=== PATIENT | male | born 1945 | race Caucasian/White ===

== ENCOUNTER 2019-07-29 08:31 | Outpatient (RCR) | payer MEDICARE, SELFPAY ==
[2019-05-02 08:44] LABS: Alanine Aminotransferase 58 U/L (4-50); Aspartate Amino Transferase 93 U/L (17-59)
[2019-05-02 08:47] LABS: INR 2.6; Prothrombin Time 27.2 Seconds (11.1-14.7)
[2019-05-30 09:43] LABS: INR 3.1; Prothrombin Time 31.6 Seconds (11.1-14.7)
[2019-05-30 09:46] LABS: Alanine Aminotransferase 100 U/L (4-50); Albumin Level 3.7 g/dL (3.5-5.1); Alkaline Phosphatase 92 U/L (38-126); Aspartate Amino Transferase 90 U/L (17-59); Bilirubin,Total 0.4 mg/dL (0.2-1.3); Blood Urea Nitrogen 19 mg/dL (9-20); Calcium 9.3 mg/dL (8.4-10.2); Carbon Dioxide 32 mmol/L (22-30); Chloride 103 mmol/L (98-107); Estimated Glomerular Filt Rate 54; Glucose 107 mg/dL (75-110); Potassium 3.8 mmol/L (3.4-5.0); Sodium 143 mmol/L (137-145)
[2019-06-29 09:23] LABS: INR 2.6; Prothrombin Time 27.7 Seconds (11.1-14.7)
[2019-07-29 09:04] LABS: INR 2.4; Prothrombin Time 25.3 Seconds (11.1-14.7)
== END 2019-07-31 23:59 | disposition home or self-care (01) ==
LOC: ANHLAB 08:31
PROVIDERS: PCP Internal Medicine; Visit Provider Internal Medicine Cardiovascular Disease
DX: Z51.81 Encounter for therapeutic drug level monitoring (principal); I48.19 Other persistent atrial fibrillation; R94.5 Abnormal results of liver function studies; Z79.01 Long term (current) use of anticoagulants
CPT/HCPCS: 36415; 80053; 84450; 84460; 85610

== ENCOUNTER 2019-11-29 10:35 | Outpatient (RCR) | payer MEDICARE, SELFPAY ==
[2019-09-01 11:40] LABS: INR 1.8; Prothrombin Time 20.5 Seconds (11.1-14.7)
[2019-09-28 13:49] LABS: INR 2.2; Prothrombin Time 24.3 Seconds (11.1-14.7)
[2019-10-31 12:02] LABS: INR 2.5; Prothrombin Time 26.4 Seconds (11.1-14.7)
[2019-11-29 11:01] LABS: INR 2.2; Prothrombin Time 23.7 Seconds (11.1-14.7)
== END 2019-11-30 23:59 | disposition home or self-care (01) ==
LOC: ANHLAB 10:35
PROVIDERS: PCP Internal Medicine; Visit Provider Internal Medicine Cardiovascular Disease
DX: I48.19 Other persistent atrial fibrillation (principal); Z79.01 Long term (current) use of anticoagulants; R94.5 Abnormal results of liver function studies
CPT/HCPCS: 36415; 85610

== ENCOUNTER 2020-03-27 11:09 | Outpatient (RCR) | payer MEDICARE, SELFPAY ==
[2019-12-30 07:49] LABS: INR 2.3; Prothrombin Time 24.9 Seconds (11.1-14.7)
[2020-01-31 07:47] LABS: INR 2.3; Prothrombin Time 24.7 Seconds (11.1-14.7)
[2020-03-01 08:53] LABS: Prothrombin Time 21.9 Seconds (11.1-14.7)
[2020-03-27 11:57] LABS: INR 1.9; Prothrombin Time 22.3 Seconds (11.1-14.7)
== END 2020-03-29 23:59 | disposition home or self-care (01) ==
LOC: ANHLAB 11:09
PROVIDERS: PCP Internal Medicine; Visit Provider Internal Medicine Cardiovascular Disease
DX: Z51.81 Encounter for therapeutic drug level monitoring (principal); I48.19 Other persistent atrial fibrillation; Z79.01 Long term (current) use of anticoagulants
CPT/HCPCS: 36415; 85610

== ENCOUNTER 2020-07-27 11:08 | Outpatient (RCR) | payer MEDICARE, SELFPAY ==
[2020-05-03 10:51] LABS: INR 1.9; Prothrombin Time 22.6 Seconds (11.1-14.7)
[2020-06-30 11:18] LABS: INR 1.9; Prothrombin Time 22.5 Seconds (11.1-14.7)
[2020-07-27 11:32] LABS: INR 1.5; Prothrombin Time 18.7 Seconds (11.1-14.7)
== END 2020-08-01 23:59 | disposition home or self-care (01) ==
LOC: ANHLAB 11:08
PROVIDERS: PCP Internal Medicine; Visit Provider Internal Medicine Cardiovascular Disease
DX: Z51.81 Encounter for therapeutic drug level monitoring (principal); I48.19 Other persistent atrial fibrillation; Z79.01 Long term (current) use of anticoagulants
CPT/HCPCS: 36415; 85610

== ENCOUNTER 2020-08-30 08:13 | Outpatient (CLI) | payer MEDICARE, SELFPAY ==
[2020-08-30 08:46] LABS: Cholesterol 255 mg/dL (0-200); HDL Direct 32 mg/dL; Triglycerides 180 mg/dL (<150)
[2020-08-30 08:57] LABS: LDL Cholesterol Direct 166 mg/dL
== END 2020-08-30 08:14 | disposition home or self-care (01) ==
PROVIDERS: PCP Internal Medicine; Visit Provider Internal Medicine Cardiovascular Disease
DX: E78.5 Hyperlipidemia, unspecified (principal); I25.10 Atherosclerotic heart disease of native coronary artery without angina pectoris
CPT/HCPCS: 36415; 80061

== ENCOUNTER 2020-10-19 08:29 | Outpatient (RCR) | payer MEDICARE, SELFPAY ==
[2020-08-11 13:24] LABS: INR 2.5; Prothrombin Time 27.3 Seconds (11.1-14.7)
[2020-09-11 11:06] LABS: INR 2.2; Prothrombin Time 24.7 Seconds (11.1-14.7)
[2020-10-19 08:56] LABS: INR 2.4; Prothrombin Time 26.6 Seconds (11.1-14.7)
== END 2020-11-09 23:59 | disposition home or self-care (01) ==
LOC: ANHLAB 08:29
PROVIDERS: PCP Internal Medicine; Visit Provider Internal Medicine Cardiovascular Disease
DX: Z51.81 Encounter for therapeutic drug level monitoring (principal); I48.19 Other persistent atrial fibrillation; Z79.01 Long term (current) use of anticoagulants
CPT/HCPCS: 36415; 85610

== ENCOUNTER 2020-11-30 06:50 | Outpatient (CLI) | payer MEDICARE, SELFPAY ==
[2020-11-30 07:48] LABS: Cholesterol 120 mg/dL (0-200); HDL Direct 31 mg/dL; Triglycerides 188 mg/dL (<150)
[2020-11-30 07:59] LABS: LDL Cholesterol Direct 50 mg/dL
== END 2020-11-30 06:51 | disposition home or self-care (01) ==
PROVIDERS: PCP Internal Medicine; Visit Provider Internal Medicine Cardiovascular Disease
DX: E78.5 Hyperlipidemia, unspecified (principal)
CPT/HCPCS: 36415; 80061

== ENCOUNTER 2021-01-16 10:36 | Outpatient (RCR) | payer MEDICARE, SELFPAY ==
[2020-11-19 10:55] LABS: INR 2.4; Prothrombin Time 26.6 Seconds (11.1-14.7)
[2020-12-18 16:49] LABS: INR 1.8; Prothrombin Time 20.3 Seconds (11.1-14.7)
[2021-01-16 11:29] LABS: INR 2.1; Prothrombin Time 23.3 Seconds (11.1-14.7)
== END 2021-02-17 23:59 | disposition home or self-care (01) ==
LOC: ANHLAB 10:36
PROVIDERS: PCP Internal Medicine; Visit Provider Internal Medicine Cardiovascular Disease
DX: Z51.81 Encounter for therapeutic drug level monitoring (principal); I48.19 Other persistent atrial fibrillation; Z79.01 Long term (current) use of anticoagulants
CPT/HCPCS: 36415; 85610

== ENCOUNTER 2021-04-22 09:58 | Outpatient (RCR) | payer MEDICARE, SELFPAY ==
[2021-02-18 15:03] LABS: INR 2.5; Prothrombin Time 26.7 Seconds (11.1-14.7)
[2021-03-21 09:40] LABS: INR 2.8; Prothrombin Time 28.4 Seconds (11.1-14.7)
[2021-04-22 10:32] LABS: INR 2.2; Prothrombin Time 24.1 Seconds (11.1-14.7)
== END 2021-05-19 23:59 | disposition home or self-care (01) ==
LOC: ANHLAB 09:58
PROVIDERS: PCP Internal Medicine; Visit Provider Internal Medicine Cardiovascular Disease
DX: Z51.81 Encounter for therapeutic drug level monitoring (principal); I48.19 Other persistent atrial fibrillation; Z79.01 Long term (current) use of anticoagulants
CPT/HCPCS: 36415; 85610

== ENCOUNTER 2021-09-18 10:47 | Outpatient (RCR) | payer MEDICARE, SELFPAY ==
[2021-06-25 10:47] LABS: INR 1.8; Prothrombin Time 20.1 Seconds (11.1-14.7)
[2021-07-09 14:08] LABS: INR 2.4; Prothrombin Time 25.3 Seconds (11.1-14.7)
[2021-08-13 08:55] LABS: Prothrombin Time 22.3 Seconds (11.1-14.7)
[2021-09-09 12:17] LABS: INR 3.2; Prothrombin Time 31.8 Seconds (11.1-14.7)
[2021-09-18 11:53] LABS: INR 2.6; Prothrombin Time 26.7 Seconds (11.1-14.7)
== END 2021-09-23 23:59 | disposition home or self-care (01) ==
LOC: ANHLAB 10:47
PROVIDERS: PCP Internal Medicine; Visit Provider Internal Medicine Cardiovascular Disease
DX: Z51.81 Encounter for therapeutic drug level monitoring (principal); I35.9 Nonrheumatic aortic valve disorder, unspecified; Z79.01 Long term (current) use of anticoagulants
CPT/HCPCS: 36415; 85610

== ENCOUNTER 2021-09-18 10:48 | Outpatient (CLI) | payer MEDICARE, SELFPAY ==
[2021-09-18 12:24] LABS: Prostate Specific Antigen 0.5 ng/mL (< OR = 4.0)
== END 2021-09-18 10:49 | disposition home or self-care (01) ==
LOC: ANHLAB 10:50
PROVIDERS: PCP Internal Medicine; Visit Provider Nurse Practitioner Adult Health
DX: R97.20 Elevated prostate specific antigen [PSA] (principal)
CPT/HCPCS: 36415; 84153; 85610

== ENCOUNTER 2021-12-24 10:54 | Outpatient (RCR) | payer MEDICARE, SELFPAY ==
[2021-10-18 08:21] LABS: INR 2.6; Prothrombin Time 26.9 Seconds (11.1-14.7)
[2021-11-22 09:28] LABS: INR 2.5; Prothrombin Time 26.1 Seconds (11.1-14.7)
[2021-12-24 11:20] LABS: INR 2.5; Prothrombin Time 26.1 Seconds (11.1-14.7)
== END 2022-01-16 23:59 | disposition home or self-care (01) ==
LOC: ANHLAB 10:54
PROVIDERS: PCP Internal Medicine; Visit Provider Internal Medicine Cardiovascular Disease
DX: Z51.81 Encounter for therapeutic drug level monitoring (principal); I35.9 Nonrheumatic aortic valve disorder, unspecified; Z79.01 Long term (current) use of anticoagulants
CPT/HCPCS: 36415; 85610

== ENCOUNTER 2022-03-25 11:10 | Outpatient (RCR) | payer MEDICARE, SELFPAY ==
[2022-01-22 08:16] LABS: INR 2.7
[2022-03-25 11:51] LABS: INR 1.8; Prothrombin Time 20.4 Seconds (11.1-14.7)
== END 2022-04-22 23:59 | disposition home or self-care (01) ==
LOC: ANHLAB 11:10
PROVIDERS: PCP Internal Medicine; Visit Provider Internal Medicine Cardiovascular Disease
DX: Z51.81 Encounter for therapeutic drug level monitoring (principal); I35.9 Nonrheumatic aortic valve disorder, unspecified; Z79.01 Long term (current) use of anticoagulants
CPT/HCPCS: 36415; 85610

== ENCOUNTER 2022-06-30 10:30 | Outpatient (RCR) | payer MEDICARE, SELFPAY ==
[2022-05-01 10:14] LABS: INR 1.9; Prothrombin Time 21.4 Seconds (11.1-14.7)
[2022-06-30 11:15] LABS: INR 2.1; Prothrombin Time 22.5 Seconds (11.1-14.7)
== END 2022-07-30 23:59 | disposition home or self-care (01) ==
LOC: ANHLAB 10:30
PROVIDERS: PCP Internal Medicine; Visit Provider Internal Medicine Cardiovascular Disease
DX: Z51.81 Encounter for therapeutic drug level monitoring (principal); I35.9 Nonrheumatic aortic valve disorder, unspecified; Z79.01 Long term (current) use of anticoagulants
CPT/HCPCS: 36415; 85610

== ENCOUNTER 2022-11-03 09:52 | Outpatient (RCR) | payer MEDICARE, SELFPAY ==
[2022-11-03 10:33] LABS: INR 2.2; Prothrombin Time 25.9 Seconds (11.1-14.7)
== END 2023-02-01 23:59 | disposition home or self-care (01) ==
LOC: ANHLAB 09:52
PROVIDERS: PCP Internal Medicine; Visit Provider Internal Medicine Cardiovascular Disease
DX: Z51.81 Encounter for therapeutic drug level monitoring (principal); I35.9 Nonrheumatic aortic valve disorder, unspecified; I48.19 Other persistent atrial fibrillation; Z79.01 Long term (current) use of anticoagulants
CPT/HCPCS: 36415; 85610

== ENCOUNTER 2023-02-04 10:35 | Outpatient (RCR) | payer MEDICARE, SELFPAY ==
[2023-02-04 11:41] LABS: INR 2.6; Prothrombin Time 29.6 Seconds (11.1-14.7)
== END 2023-05-05 23:59 | disposition home or self-care (01) ==
LOC: ANHLAB 10:35
PROVIDERS: PCP Internal Medicine; Visit Provider Internal Medicine Cardiovascular Disease
DX: Z51.81 Encounter for therapeutic drug level monitoring (principal); I35.9 Nonrheumatic aortic valve disorder, unspecified; I48.91 Unspecified atrial fibrillation; Z79.01 Long term (current) use of anticoagulants
CPT/HCPCS: 36415; 85610

== ENCOUNTER 2024-04-19 09:46 | Outpatient (CLI) | payer MEDICARE, SELFPAY ==
[2024-04-19 10:04] LABS: Basophils Absolute Auto 0.1 K/mm3 (0.0-0.1); Basophils Percent Auto 0.7 % (0.2-1.2); Eosinophils Absolute Auto 0.1 K/mm3 (0-0.3); Eosinophils Percent Auto 1.3 % (0-4.4); Hematocrit 44.9 % (42.0-52.0); Hemoglobin 14.4 g/dL (14.0-18.0); Immature Granulocyte Absolute 0.05 K/mm3 (0.00-0.031); Immature Granulocyte Percent A 0.7 % (0-0.5); Lymphocytes Absolute Auto 1.27 K/mm3 (0.9-3.2); Mean Corpuscular HGB Conc 32.1 g/dl (32-36); Mean Corpuscular Hemoglobin 29.3 pg (26-34); Mean Corpuscular Volume 91.4 fl (80-100); Mean Platelet Volume 10.3 fl (7.4-10.4); Monocytes Absolute Auto 0.6 K/mm3 (0.1-0.6); Monocytes Percent Auto 7.8 % (2.6-8.5); Neutrophils Absolute Auto 5.4 K/mm3 (1.3-6.7); Neutrophils Percent Auto 72.5 % (45.5-73.1); Platelet Count Result 204 k/mm3 (150-375); Red Blood Count 4.91 M/mm3 (4.6-6.20); Red Cell Distribution Width 14.6 % (11.5-14.5); White Blood Count 7.5 K/mm3 (4.5-10.0)
[2024-04-19 10:28] LABS: Alanine Aminotransferase 38 U/L (6-50); Albumin Level 4.1 g/dL (3.5-5.1); Alkaline Phosphatase 140 U/L (38-126); Anion Gap 5 mmol/L (4-12); Aspartate Amino Transferase 47 U/L (17-59); Bilirubin,Total 0.9 mg/dL (0.2-1.3); Blood Urea Nitrogen 19 mg/dL (9-20); Calcium 9.5 mg/dL (8.4-10.2); Carbon Dioxide 30 mmol/L (22-30); Chloride 106 mmol/L (98-107); Cholesterol 169 mg/dL (0-200); Estimated Glomerular Filt Rate > 60; Glucose 100 mg/dL (65-110); HDL Direct 67 mg/dL; Potassium 4.8 mmol/L (3.4-5.0); Sodium 141 mmol/L (137-145); Triglycerides 70 mg/dL (<150)
[2024-04-19 10:38] LABS: LDL Cholesterol Direct 70 mg/dL
== END 2024-04-19 09:47 | disposition home or self-care (01) ==
PROVIDERS: PCP Internal Medicine; Visit Provider Internal Medicine
DX: J44.9 Chronic obstructive pulmonary disease, unspecified (principal); I25.10 Atherosclerotic heart disease of native coronary artery without angina pectoris; R74.8 Abnormal levels of other serum enzymes; I10 Essential (primary) hypertension; E66.9 Obesity, unspecified
CPT/HCPCS: 36415; 80053; 80061; 85025

== ENCOUNTER 2024-04-30 14:04 | Emergency (ER) | payer MEDICARE, SELFPAY ==
[2024-04-30 14:10] VITALS: BP 168/100; PULSE 64; RESP 16; TEMP 36.2; O2SAT 95
[2024-04-30 19:07] VITALS: BP 174/70; PULSE 72; RESP 18; TEMP 36.6; O2SAT 99
--- NOTE | 2024-04-30 19:20 | PC.NURSE ---
Report received from FERMIN Espino. Assumed care of patient at this time.
--- NOTE | 2024-04-30 19:26 | ED.SKABFB ---
HPI - Skin/Abscess/Foreign Bdy General Chief complaint: Skin/Abscess/Foreign Body Stated complaint: biopsy yesterday still bleeding History of Present Illness HPI narrative: Patient is a 79-year-old male who presents to the ER following a skin cancer biopsy on his L latter-day. He reports the procedure was done yesterday and has continued to ooze. Patient does endorse he is on blood thinners. He reports his biggest concern is that he has developed a hematoma under his left eye and is wondering if it needs to be drained. Patient reports the bruising on his left hand but the biopsy site manageable. He denies any neurological deficiencies, pain or fevers. Patient endorses a history high blood pressure, skin cancer, COPD, and AFib. Related Data Home Medications Medication Instructions Recorded Confirmed finasteride 5 mg tablet 5 mg PO DAILY 06/14/19 04/25/24 furosemide 40 mg tablet (Lasix) 40 mg PO QAM 06/14/19 04/25/24 losartan 50 mg tablet 50 mg PO DAILY 06/14/19 04/25/24 metoprolol tartrate 25 mg tablet 25 mg PO BID 11/08/19 04/25/24 amlodipine 10 mg tablet 5 mg PO DAILY 11/04/21 04/25/24 clopidogrel 75 mg tablet 75 mg PO DAILY 11/04/21 04/25/24 apixaban 5 mg tablet (Eliquis) 5 mg PO BID 06/10/23 04/25/24 atorvastatin 20 mg tablet 40 mg PO DAILY 03/23/24 04/25/24 Allergies Allergy/AdvReac Type Severity Reaction Status Date / Time No Known Drug Allergies Allergy Unknown na Verified 04/30/24 17:02 Review of Systems Review of Systems: All systems reviewed & are unremarkable except as noted in HPI and below PMFSH Past Medical History Medical History Amputation toe Atrial fibrillation CHF (congestive heart failure) CKD (chronic kidney disease) stage 3, GFR 30-59 ml/min COPD (chronic obstructive pulmonary disease) Coronary artery disease Elevated liver enzymes Hypertension Surgical History Surgical History H/O aortic valve replacement Family History Family History Father CAD (coronary artery disease) Hypertension Parkinson disease Mother CAD (coronary artery disease) Hypertension Sibling CAD (coronary artery disease) Hypertension Mother Hypertension Acute myocardial infarction Father Family history of coronary artery disease Social History Social History Smoking packs per day: 1 Smoking cigarettes per day: 20.0 Years smoked: 35 Smoking pack-years: 35.00 Smoking status: Former smoker Smoking end date: 05/25/97 Alcohol intake: current Do You Feel Safe in your Home?: Yes Lack of Transportation: No Lack of Food: Never True Current Housing: I Have Housing Concerned About Future Housing: No Difficulty Paying Gas/Electric Bills: No Difficulty Paying for Meds: No Currently Unemployed: No Education: High School Diploma/GED Difficulty w/ Childcare or Family Care: No Exam Narrative: GENERAL: Well appearing, well-nourished, non-toxic, in no acute distress. HEAD: Normocephalic, left lower orbital hematoma, soft when palpated, elevated mildly from R orbital socket, finding is expected with pt's medical history NECK: Supple. No adenopathy, no masses. RESPIRATORY: Airway patent, respirations nonlabored. Clear to auscultation bilaterally, no rales, rhonchi, wheezing. CARDIOVASCULAR: Regular rate and rhythm without murmurs, rubs, or gallops. Peripheral pulses 2+ and equal bilaterally. ABDOMINAL: Soft, nontender, nondistended, no hepatosplenomegaly. Normoactive BS. MUSCULOSKELETAL: Moves all extremities. Strength/ROM intact without gross deformities. SKIN: Warm, dry, normal color. No rashes. NEURO: A&O X3. Speech clear. Cranial nerves II-XII grossly intact. Steady gait. No ataxic movements. PSYCHIATRIC: Appropriate mood and affect. Normal interaction. Course Vital Signs Vital signs: Vital Signs Temperature 36.2 C L 04/30/24 14:10 Pulse Rate 64 04/30/24 14:10 Respiratory Rate 16 04/30/24 14:10 Blood Pressure 168/100 H 04/30/24 14:10 Pulse Oximetry 95 04/30/24 14:10 Oxygen Delivery Nasal Cannula 04/30/24 14:10 Oxygen Flow Rate 1 04/30/24 14:10 Temperature 36.6 C 04/30/24 19:07 Pulse Rate 72 04/30/24 19:07 Respiratory Rate 18 04/30/24 19:07 Blood Pressure 174/70 H 04/30/24 19:07 Pulse Oximetry 99 04/30/24 19:07 Oxygen Delivery Nasal Cannula 04/30/24 14:10 Oxygen Flow Rate 1 04/30/24 14:10 MDM - Skin/Abscess/Foreign Bdy MDM Narrative Medical decision making narrative: Patient is a 79-year-old male who presents to the ER following a skin cancer biopsy on his L latter-day. He reports the procedure was done yesterday and has continued to ooze. Patient does endorse he is on blood thinners. He reports his biggest concern is that he has developed a hematoma under his left eye and is wondering if it needs to be drained. Patient reports the bruising on his left hand but the biopsy site manageable. He denies any neurological deficiencies, pain or fevers. Patient endorses a history high blood pressure, skin cancer, COPD, and AFib. Labs Ordered: None needed Imaging Ordered: None needed Diagnosis: L lower orbital swelling and hematoma Consults: Pt's notes from his PCP were reviewed. He has been on a blood thinner for more than 5 years due to AFib and his INR and a PTT had consistent readings. Patient Education/Shared MDM: Education provided to patient that this is an expected result of patient having a procedure care after being on blood thinners. Patient verbalizes understanding. He should follow with his primary care provider on Thursday. Patient is in agreement with plan. Disposition/Plan: Patient is in agreement with current treatment plan. All questions answered. Vital signs stable at time of discharge. Differential Diagnosis Differential diagnosis: Likely cellulitis, contact dermatitis and other (uncontrolled bleeding) Discharge Plan Discharge Clinical Impression: Hematoma of left orbit Patient Disposition: Home, Self-Care Condition: Stable Instructions: Antibiotic Form, Hematoma (ED), Blood Thinners (ED) Additional Instructions: Please return to the ER with an worsening symptoms. Follow-up with primary care provider in the next 2-3 days. Take all medications as prescribed. Prescriptions: No Action finasteride 5 mg tablet 5 mg PO DAILY furosemide [Lasix] 40 mg tablet 40 mg PO QAM losartan 50 mg tablet 50 mg PO DAILY amlodipine 10 mg tablet 5 mg PO DAILY metoprolol tartrate 25 mg tablet 25 mg PO BID Rx Instructions: 2 tablets BID clopidogrel 75 mg tablet 75 mg PO DAILY albuterol sulfate 90 mcg/actuation HFA aerosol inhaler 1 - 2 inh inhalation Q4-6H PRN (Reason: shortness of breath or wheezing) Qty: 8.5 2RF Eliquis 5 mg tablet 5 mg PO BID atorvastatin 20 mg tablet 40 mg PO DAILY Trelegy Ellipta 100-62.5-25 mcg blister with device 1 inh INHALATION DAILY Qty: 60 11RF Rx Instructions: Rinse mouth and spit after each use Follow-up/Referrals: Timo Coronado DO [Primary Care Provider] - Time of Disposition: 19:41
== END 2024-04-30 19:51 | disposition home or self-care (01) ==
PROVIDERS: Emergency Provider Registered Nurse; PCP Internal Medicine
DX: L76.32 Postprocedural hematoma of skin and subcutaneous tissue following other procedure (principal); I48.91 Unspecified atrial fibrillation; I13.0 Hypertensive heart and chronic kidney disease with heart failure and stage 1 through stage 4 chronic kidney disease, or unspecified chronic kidney disease; N18.30 Chronic kidney disease, stage 3 unspecified; I50.9 Heart failure, unspecified; I25.10 Atherosclerotic heart disease of native coronary artery without angina pectoris; J44.9 Chronic obstructive pulmonary disease, unspecified; Z95.2 Presence of prosthetic heart valve; Z87.891 Personal history of nicotine dependence; Z89.429 Acquired absence of other toe(s), unspecified side; Z79.899 Other long term (current) drug therapy; Z79.01 Long term (current) use of anticoagulants; Y84.8 Other medical procedures as the cause of abnormal reaction of the patient, or of later complication, without mention of misadventure at the time of the procedure
CPT/HCPCS: 99282

== ENCOUNTER 2024-05-02 16:04 | Emergency (ER) | payer MEDICARE, SELFPAY ==
[2024-05-02] VITALS (9 sets, daily range): BP systolic 168–181; BP diastolic 64–75; PULSE 61–70; RESP 16–18; TEMP 36.6; O2SAT 92–100
--- NOTE | 2024-05-02 17:45 | PC.NURSE ---
pt nose has stopped bleeding, pt is ready to go home. STEVENSON Denny aware.
--- NOTE | 2024-05-02 17:58 | ED_ITS ---
HPI - Epistaxis General Chief complaint: Epistaxis Stated complaint: epistaxis Time Seen by Provider: 05/02/24 17:01 Source: patient Mode of arrival: EMS Limitations: no limitations History of Present Illness HPI Narrative: Patient is a 79-year-old male who presents the ED via EMS with report of an epistaxis. Patient reports he developed an epistaxis this afternoon. Seem to be present throughout his left nare, but draining into his throat and right- sided ear. He states he attempted to hold pressure at home, but bleeding continued for approximately 2 hours before he contacted EMS. Clamp list placed by EMS. Patient is on Eliquis. Hx of AFIB. Denies dizziness or lightheadedness. Related Data Home Medications Medication Instructions Recorded Confirmed finasteride 5 mg tablet 5 mg PO DAILY 06/14/19 04/25/24 furosemide 40 mg tablet (Lasix) 40 mg PO QAM 06/14/19 04/25/24 losartan 50 mg tablet 50 mg PO DAILY 06/14/19 04/25/24 metoprolol tartrate 25 mg tablet 25 mg PO BID 11/08/19 04/25/24 amlodipine 10 mg tablet 5 mg PO DAILY 11/04/21 04/25/24 clopidogrel 75 mg tablet 75 mg PO DAILY 11/04/21 04/25/24 apixaban 5 mg tablet (Eliquis) 5 mg PO BID 06/10/23 04/25/24 atorvastatin 20 mg tablet 40 mg PO DAILY 03/23/24 04/25/24 Allergies Allergy/AdvReac Type Severity Reaction Status Date / Time No Known Drug Allergies Allergy Unknown na Verified 04/30/24 17:02 Review of Systems Review of Systems: All systems reviewed & are unremarkable except as noted in HPI. All systems reviewed & are unremarkable except as noted in HPI and below [facility] Past Medical History Medical History Amputation toe Atrial fibrillation CHF (congestive heart failure) CKD (chronic kidney disease) stage 3, GFR 30-59 ml/min COPD (chronic obstructive pulmonary disease) Coronary artery disease Elevated liver enzymes Hypertension Surgical History Surgical History H/O aortic valve replacement Family History Family History Father CAD (coronary artery disease) Hypertension Parkinson disease Mother CAD (coronary artery disease) Hypertension Sibling CAD (coronary artery disease) Hypertension Mother Hypertension Acute myocardial infarction Father Family history of coronary artery disease Social History Social History Smoking packs per day: 1 Smoking cigarettes per day: 20.0 Years smoked: 35 Smoking pack-years: 35.00 Smoking status: Former smoker Smoking end date: 05/25/97 Alcohol intake: current Do You Feel Safe in your Home?: Yes Lack of Transportation: No Lack of Food: Never True Current Housing: I Have Housing Concerned About Future Housing: No Difficulty Paying Gas/Electric Bills: No Difficulty Paying for Meds: No Currently Unemployed: No Education: High School Diploma/GED Difficulty w/ Childcare or Family Care: No Exam Narrative: GENERAL: Elderly, well-nourished, non-toxic, in no acute distress. HEAD: Normocephalic, atraumatic. ENT: Well-healing surgical incision into left temporal region with some ecchymosis present. Consistent with skin cancer removal that was performed yesterday. No active epistaxis. There is a small area of raw skin present thro ughout left inferior nasal cavity without active bleeding. RESPIRATORY: Airway patent, respirations nonlabored. CARDIOVASCULAR: Regular rate and rhythm MUSCULOSKELETAL: Moves all extremities. No gross deformities. SKIN: Warm, dry, normal color. NEURO: A&O X3. Speech clear. PSYCHIATRIC: Appropriate mood and affect. Normal interaction. Course Vital Signs Vital signs: Vital Signs Temperature 97.8 F 05/02/24 16:05 Pulse Rate 61 05/02/24 16:05 Respiratory Rate 16 05/02/24 16:05 Blood Pressure 179/64 H 05/02/24 16:05 Pulse Oximetry 100 05/02/24 16:05 Oxygen Delivery Room Air 05/02/24 16:05 Temperature 97.8 F 05/02/24 16:05 Pulse Rate 70 05/02/24 18:14 Respiratory Rate 18 05/02/24 18:14 Blood Pressure 177/75 H 05/02/24 18:14 Pulse Oximetry 100 05/02/24 18:14 Oxygen Delivery Room Air 12/09/24 16:05 MDM - Epistaxis MDM Narrative Medical decision making narrative: Patient presented to ED with 2 hour history of left-sided epistaxis. On Eliquis. By the time of my evaluation, patient had nasal clamp on for at least 1 hour in the ED. He had removed the clamp himself for at least 20 minutes and has not had any further recurrence of epistaxis. States he would like to go home. I feel comfortable with this. There is a small area of raw abraded skin that I do believe this source of epistaxis in left nare, but there is no active bleeding at this time. Discussed further epistaxis management. Will refer to ENT for further evaluation. Given strict return precautions. Discharged in stable condition. Medical Records Attestation: I reviewed the patient's medical records. Discharge Plan Discharge Clinical Impression: Epistaxis, Chronic anticoagulation Patient Disposition: Home, Self-Care Condition: Stable Instructions: Antibiotic Form, Nosebleed (ED) Additional Instructions: Avoid rubbing or blowing your nose for the next couple days. Recommend humidifier or placing Vaseline inside nostrils at night to avoid drying out. You may also use nasal spray/saline spray to nose to keep moist. If bleeding recurs, utilize Afrin to nostrils and place nasal clamp for approximately 30 minutes. Do not adjust or move the clamp for at least 30 minutes. If bleeding does still persistent after 30 minutes, replace clamp for additional 15 minute intervals. If bleeding is still persistent after 1 hour, return to the ED for further evaluation. Additionally, return to the ED if you experience severe pain, weakness, passing out, significant dizziness, or any other symptoms of concern. You may follow up with ENT for further evaluation if needed. Prescriptions: No Action finasteride 5 mg tablet 5 mg PO DAILY furosemide [Lasix] 40 mg tablet 40 mg PO QAM losartan 50 mg tablet 50 mg PO DAILY amlodipine 10 mg tablet 5 mg PO DAILY metoprolol tartrate 25 mg tablet 25 mg PO BID Rx Instructions: 2 tablets BID clopidogrel 75 mg tablet 75 mg PO DAILY albuterol sulfate 90 mcg/actuation HFA aerosol inhaler 1 - 2 inh inhalation Q4-6H PRN (Reason: shortness of breath or wheezing) Qty: 8.5 2RF Eliquis 5 mg tablet 5 mg PO BID atorvastatin 20 mg tablet 40 mg PO DAILY Trelegy Ellipta 100-62.5-25 mcg blister with device 1 inh INHALATION DAILY Qty: 60 11RF Rx Instructions: Rinse mouth and spit after each use Follow-up/Referrals: Crow Mcnair MD [Physician] - (ENT) Timo Coronado DO [Primary Care Provider] - Time of Disposition: 18:02
== END 2024-05-02 18:16 | disposition home or self-care (01) ==
PROVIDERS: Emergency Provider Physician Assistant; PCP Internal Medicine
DX: R04.0 Epistaxis (principal); I50.9 Heart failure, unspecified; I13.0 Hypertensive heart and chronic kidney disease with heart failure and stage 1 through stage 4 chronic kidney disease, or unspecified chronic kidney disease; N18.30 Chronic kidney disease, stage 3 unspecified; Z95.2 Presence of prosthetic heart valve; Z87.891 Personal history of nicotine dependence; Z89.429 Acquired absence of other toe(s), unspecified side; Z79.02 Long term (current) use of antithrombotics/antiplatelets; Z79.01 Long term (current) use of anticoagulants; Z79.899 Other long term (current) drug therapy
CPT/HCPCS: 99282

== ENCOUNTER 2024-10-30 07:12 | Inpatient (IN) | payer MEDICARE, SELFPAY ==
[2024-10-30] VITALS (17 sets, daily range): BP systolic 146–183; BP diastolic 54–95; PULSE 60–81; RESP 18–34; TEMP 36.3–36.9; O2SAT 93–100; BMI 26.0
--- NOTE | ~2024-10-30 | XR_ITS ---
Portable chest x-ray Comparison: 05/13/2019 Clinical History: Shortness of breath Findings: Probable small bilateral pleural effusions with moderate pulmonary edema pattern. Cardiom ediastinal silhouette is stable, status post aortic valve replacement and probable CABG with pacemake r device. Bones and soft tissues are unremarkable. Impression: Small bilateral pleural effusions with mild pulmonary edema pattern. Prior cardiac surgery and pacemaker device, as above. Reviewed, dictated and finalized at location . Impression: Small bilateral pleural effusions with mild pulmonary edema pattern. Prior cardiac surgery and pacemaker device, as above.
[2024-10-30 07:48] LABS: Basophils Percent Auto 0.2 % (0.2-1.2); Eosinophils Absolute Auto 0.1 K/mm3 (0-0.3); Eosinophils Percent Auto 0.7 % (0-4.4); Hematocrit 40.9 % (42.0-52.0); Immature Granulocyte Absolute 0.04 K/mm3 (0.00-0.031); Immature Granulocyte Percent A 0.4 % (0-0.5); Lymphocytes Absolute Auto 0.92 K/mm3 (0.9-3.2); Lymphocytes Percent Auto 9.7 % (18.3-44.2); Mean Corpuscular HGB Conc 31.8 g/dl (32-36); Mean Corpuscular Hemoglobin 29.3 pg (26-34); Mean Corpuscular Volume 92.3 fl (80-100); Mean Platelet Volume 10.4 fl (7.4-10.4); Monocytes Absolute Auto 0.9 K/mm3 (0.1-0.6); Monocytes Percent Auto 9.3 % (2.6-8.5); Neutrophils Absolute Auto 7.6 K/mm3 (1.3-6.7); Neutrophils Percent Auto 79.7 % (45.5-73.1); Platelet Count Result 192 k/mm3 (150-375); Red Blood Count 4.43 M/mm3 (4.6-6.20); Red Cell Distribution Width 14.8 % (11.5-14.5); White Blood Count 9.5 K/mm3 (4.5-10.0)
--- OUTSIDE RECORDS SUMMARY | 2024-10-30 07:48 | XMS_ITS | Referral Summary ---
Author Organization [facility] [address] [address] [place] [phone] Care Team Providers Care Otolaryngologist Name Role Phone Timo Coronado DO Primary Care Provider [phone] Miscellaneous, Not In File Unavailable Unava ilable Encounters Date Type Department Care Team Description 10/25/2024 Telephone [facility] [address] [place] [address] [place] [phone] Jory Vásquez MD 10/04/2024 10:00 AM CDT Office Visit [facility] [address] [place] [phone] Jory Vásquez MD Coronary arteriosclerosis in [place] artery (Primary Dx); Hyperlipidemia LDL goal <70; Persistent atrial fibrillation (HCC); PAD (peripheral artery disease); Pulmonary hypertension (HCC) 09/20/2024 7:30 AM CDT Ancillary Procedure [facility] [address] [place] [address] [place] [phone] Pacemaker (Primary Dx); Persistent atrial fibrillation (HCC); SSS (sick sinus syndrome) (HCC) 09/14/2024 Results Follow-Up [facility] [address] [place] [address] [place] [phone] Jory Vásquez MD Transthoracic Echo (TTE) Complete W Doppler/CF 09/12/2024 Telephone [facility] [address] [place] [address] [place] [phone] Jory Vásquez MD 09/07/2024 Telephone [facility] [address] [place] [phone] Jory Vásquez MD 09/05/2024 10:15 AM CDT Ancillary Procedure [facility] [address] [place] [phone] S/P TAVR (transcatheter aortic valve replacement); Coronary arteriosclerosis in [place] artery 08/15/2024 Telephone [facility] [address] [place] [address] [address] [place] [phone] Jory Vásquez MD from Last 3 Months Allergies No known active allergies Medications TRELEGY ELLIPTA 100-62.5-25 mcg blister with device Inhale 1 puff daily 9 Active finasteride (PROSCAR) 5 mg tablet Take 1 tablet (5 mg total) by mouth daily Active oxygen Administer 2 L/min into each nostril as needed With CPAP Active albuterol HFA (PROVENTIL HFA,VENTOLIN HFA,PROAIR HFA) 90 mcg/actuation inhaler Inhale 2 puffs every 6 (six) hours as needed for wheezing Active acetaminophen (TYLENOL) 325 mg tabletIndicatio ns:Fever,Pain Take 2 tablets (650 mg total) by mouth every 4 (four) hours as needed for pain [address] (PROTONIX) 40 mg EC tabletIndicatio ns:Stress Ulcer Prophylaxis Take 1 tablet (40 mg total) by mouth daily 3 Active amLODIPine (NORVASC) 10 mg tablet Take 1 tablet (10 mg total) by mouth daily 90 tablet 2 5 05/26/19 26 Active metoprolol tartrate (LOPRESSOR) 25 mg immediate release tablet Take 1 tablet (25 mg total) by mouth 2 (two) times a day 180 tablet 1 5 Active furosemide (LASIX) 20 mg tablet Take 2 tablets (40 mg total) by mouth daily 180 tablet 1 5 Active atorvastatin (LIPITOR) 80 mg tablet TAKE 1 TABLET BY MOUTH ONCE DAILY AT BEDTIME 90 tablet 1 5 Active clopidogreL (PLAVIX) 75 mg tablet Take 1 tablet (75 mg total) by mouth daily 90 tablet 2 5 Active apixaban (Eliquis) 5 mg tablet Take 1 tablet (5 mg total) by mouth every 12 (twelve) hours 60 tablet 6 5 Active losartan (COZAAR) 50 mg tablet Take 1 tablet (50 mg total) by mouth daily 90 tablet 2 5 Active losartan (COZAAR) 50 mg tablet TAKE 1 TABLET BY MOUTH EVERY DAY 90 tablet 2 4 10/26/19 25 Discontin ued(Reord er) Active Problems Problem Noted Date Diagnosed Date Preop cardiovascular exam 05/09/2024 Ulcer of toe of left foot, with necrosis of bone 09/01/2023 Peripheral neuropathy 09/01/2023 Pyogenic inflammation of bone 09/01/2023 Left leg cellulitis 08/13/2023 Acute respiratory failure with hypoxia 4 Protein-calorie malnutrition, moderate 4 PAD (peripheral artery disease) 07/22/2023 Chronic ulcer of great toe of left foot 07/22/19 24 S/P TAVR (transcatheter aortic valve replacement ) 06/10/2023 Pleural effusion on right 05/01/2023 Assessment & Plan (05/07/2023 6:43 PM FRONT MAKER LOCKSTITCH): Mr. Pena is a 78 yo M w/ PMH of CAD s/p CABG x5, severe with plans for possible upcoming TAVR, COPD, poA-fib s/p DCCV on Elquis, history of BiV PPM placement, HTN, HLD, PAD who presented with tremors and had worsening dyspnea and found to have a Rt pleural effusion now s/p chest tube. Effusion is consistent with a transudate, and is most likely 2/2 the patient's aortic stenosis. Cx's NGTD. Now s/p TAVR. Will plan to continue to monitor chest tube output. - Chest tube pulled at bedside - Continue to optimize GDMT and fluid status per primary team Encounter for examination fo r normal comparison and control in clinical research program 04/30/2023 Syncope and collapse 04/25/2023 Cellulitis of left lower extremity 03/26/2023 Toe osteomyelitis, left 03/26/2023 Benign prostatic hyperplasia without lower urinary tract symptoms 03/26/2023 History of TIA (transient ischemic attack) 03/26 Chronic diastolic heart failure 03/26/2023 Aortic stenosis, severe 03/20/2023 Heart failure 03/20/2023 Pulmonary hypertension 11/16/2019 COPD (chronic obstructive pulmonary disease) 10/2018 Persistent atrial fibrillation 10/25/2018 Overview (10/25/2018): Added automatically from request for surgery [id number] Pacemaker 10/04/2018 Overview (12/14/2018): [employer] DDD Quadra Allure [id number] BI-V Pacemaker implanted for SSS/Afib on 10/04/18-Mario - Carloz AV Node Ablation 11/09/2018-Mario. BUTLER (dyspnea on exertion) 01/12/2018 Nonrheumatic aortic valve stenosis 02/11/2017 Primary hypertension 02/11/2017 Assessment & Plan (07/31/2023 1:27 PM FRONT MAKER LOCKSTITCH): Stable continue losartan 50 mg. PVD (peripheral vascular disease) 02/11/2017 Obstructive sleep apnea syndrome 08/05/2016 Overview (10/17/2016): MAGDALENE (obstructive sleep apnea) [facility] current use of anticoagulant therapy 0 12/21/2015 Overview (08/29/2016): Chronic anticoagulation Atypical chest pain 12/07/2015 Dyslipidemia 12/07/2015 Assessment & Plan (07/31/2023 1:28 PM FRONT MAKER LOCKSTITCH): Stable continue Lipitor 80 mg. RBBB 12/07/2015 Stenosis of carotid artery 12/05/2014 Assessment & Plan (07/31/2023 1:27 PM FRONT MAKER LOCKSTITCH): Occlusion of right internal carotid artery. Left internal carotid with severe greater than 70% stenosis however less than 80%. Discussed management of carotid disease with the patient and his daughter, we discussed with occlusion of the carotid artery no intervention is needed outside of risk factor modification. For the left internal carotid artery we discussed the recommendation for intervention if he approaches 80% stenosis or if he becomes symptomatic. We discussed the importance of risk factor modification with Plavix statin therapy in good blood pressure control. We will follow up in 6 months with repeat carotid duplex. Hyperlipidemia LDL goal <70 05/09/2014 Overview (08/29/2016): Mixed hyperlipidemia Aortic valve disorder 05/09/2014 Overview (08/29/2016): Aortic valve disorder Arterial disease 05/09/2014 Overview (08/29/2016): Disorder of artery Coronary arteriosclerosis in [place] artery 05/09 Overview (08/29/2016): Coronary arteriosclerosis in [place] artery Immunizations Immunization Administration Dates Next Due Influenza, Quadrivalent, Hig h Dose, Preservative Free, Intrr 04/29/2023(),03/13/2020 Influenza, Trivalent, Adjuva nted, Intramuscular 03/09/2019 Influenza, Trivalent, High D ose, Split, Preservative Free, Intramuscular 03/26/2018,03/25/2018,03/05/2017 PPD TEST 05/23/2023,05/12/2023 Social History Tobacco Use Types Packs/Day Years Used Date Smoking Tobacco: Former Cigarettes Q uit: 02/11/2002 Smokeless Tobacco: Never Tobacco Cessation:Counseling Given: Not Answered Alcohol Use Standard Drinks/Week Comments Not Currently 1 (1 standard drink = 0.6 oz pur e alcohol) N/ A beer may once per wk [facility] Utilities Answer Date Recorded In the past 12 months has th [employer], gas, oil, or water company threatened to shut off services in your home? No 08/13/2023 Social Connection and Isolation Panel [NHANES] A nswer Date Recorded In a typical week, how many times do you talk on the phone with family, friends, or neighbors? Once a week 08/13/2023 How often do you get together with friends or re latives? Once a week 08/13/2023 How often do you attend christianity or anabaptism serv ices? Never 08/13/2023 Do you belong to any clubs o r organizations such as christianity groups, unions, fraternal or athletic groups, or school groups? No 08/13/2023 How often do you attend meet ings of the clubs or organizations you belong to? Never 08/13/2023 Are you , , di vorced, , never , or living with a partner? 08/13/2023 AUDIT-C Answer Date Recorded Q1: How often do you have a drink containing alc ohol? 2-3 times a week 08/13/2023 Q2: How many drinks containi ng alcohol do you have on a typical day when you are drinking? 1 or 2 08/13/2023 Q3: How often do you have si x or more drinks on one occasion? Never 08/13/2023 Overall Financial Resource Strain (CARDIA) Answe r Date Recorded How hard is it for you to pa y for the very basics like food, housing, medical care, and heating? Not hard at all 08/13/2023 PHQ-2 Answer Date Recorded PHQ-2 Total Score (If total score is 3 or more points, staff should administer the PHQ-9) 0 04/27/2023 Hunger Vital Sign Answer Date Recorded Within the past 12 months, y ou worried that your food would run out before you got the money to buy more. Never true 08/13/19 24 Within the past 12 months, t he food you bought just didn't last and you didn't have money to get more. Never true 08/13/2023 PRAPARE - Transportation Answer Date Re corded In the past 12 months, has l ack of transportation kept you from medical appointments or from getting medications? No 07/24 In the past 12 months, has l ack of transportation kept you from meetings, work, or from getting things needed for daily living? No 08/13/2023 Housing Stability Vital Sign Answer Christiano e Recorded In the last 12 months, was t here a time when you were not able to pay the mortgage or rent on time? No 08/13/2023 In the last 12 months, how many places have you lived? 1 08/13/2023 In the last 12 months, was t here a time when you did not have a steady place to sleep or slept in a [place] [facility] (including now)? No 08/13/2023 Personal Safety Answer Date Recorded Have you ever been in or are you currently in a harmful physical or emotional relationship or is someone making you feel afraid or unsafe? Denies 08/13/2023 Sex and Gender Information Value Date Recorded Sex Assigned at Not on file Legal Sex Male 8:02 AM FRONT MAKER LOCKSTITCH Gender Identity Male 05/28/2021 12:28 PM FRONT MAKER LOCKSTITCH Sexual Orientation Not on file Last Filed Vital Signs Vital Sign Reading Time Taken Comments Blood Pressure 144/72 10/04/2024 10:14 AM CDT Pulse 60 10/04/2024 10:14 AM CDT Temperature 35.9 C (96.7 F) 04/11/2024 11:08 AM FRONT MAKER LOCKSTITCH Respiratory Rate 20 01/08/2024 2:52 PM CDT Oxygen Saturation 97% 10/04/2024 10:14 AM CDT 2L O2 Inhaled Oxygen Concentration - - Weight 78.5 kg (173 lb) 10/04/2024 10:14 AM CDT Height 172.7 cm (5' 8) 10/04/2024 10:14 AM CDT Body Mass Index 26.3 10/04/2024 10:14 AM CDT Plan of Treatment Not on file Medical Devices Implanted Type Area Instrument Checker Device Identifier Shelf Expiration Date Model / Serial / Lot [employer]ight [employer] Medical Lea Angio-Seal Vip 6fr Closere Device [id number] - [id number] - [id number] Implanted:Qty: 1 on 05/04/2023 by Pop Yoon MD at [facility] Collagen Right: Common Femoral Artery [employer] Lea 11/03/2023 [id number] / [id number] / [id number] [employer] 2088tc/58 Tendril Sts 6fr 58cm Is-1 Connector Active Fixation Bipolar Soft - [id number] - [id number] Implanted:Qty: 1 on 10/04/2018 by Hussein Martin MD at [facility] Lead [employer] [id number] 06/24/2021 2088TC/ 58 / [id number] / [employer] 1458q/86 Quartet 5fr 60ena21or 4 Electrode Is-4 Connector Steerable Tip - [id number] - [id number] Implanted:Qty: 1 on 10/04/2018 by Hussein Martin MD at [facility] Lead [employer] [id number] 08/22/2021 1458Q/8 6 / [id number] / [employer] [id number] Pacemaker Quadra Allure Mp Rf Manager Highway-P Mri - [id number] - [id number] Implanted:Qty: 1 on 10/04/2018 by Hussein Martin MD at [facility] Pacemaker [employer] [id number] 03/24/2020 [id number] / [id number] / Orellana [employer]iences Valve Heart 26mm Colette 3 Transcatheter [id number] - [id number] - [id number] Implanted:Qty: 1 on 05/04/2023 by Pop Yoon MD at [facility] Prosthetic Valve N/A: Aortic Valve [employer] 01/12/2026 [id number] 26A / [id number] / Medtronic Inc Visi-Pro 8mm 17mm 135cm Radiopaque Balloon Expand Radial Strength - [id number] Implanted:Qty: 1 on 06/14/[address] MD at [facility] Stent Left: Subclavian Medtronic Inc 01/02/2024 PXB35-0 817-13 5 / / [id number] [employer] Device Clsr Perclose Prostyle Sut-Mediatd Closure-Repair Sys 34590-75 - [id number] - [id number] Implanted:Qty: 1 on 05/04/2023 by Pop Yoon MD at [facility] Vascular Closure Device Left: Common Femoral Artery [employer] 09/21/2024 62288-9 3 / [id number] / [id number] Access Closure Inc Device 10ml 5fr Closure Mynx Control 2 Mode Balloon Catheter [id number] - [id number] Implanted:Qty: 1 on 03/20/[address] MD at [facility] Access Closure Inc 04/23/2024 [id number] / / [id number] Cardiva Medical Inc Device Closure Vascade Od5 Fr Femoral Artery [id number] - [id number] Implanted:Qty: 1 on 08/27/[address] MD at [facility] 04/07/2025 700-500 DX-05U / / [id number] Medtronic Inc Everflex Entrust 6mm 40mm 120cm Self Expand Triaxial Low Profile - [id number] Implanted:Qty: 1 on 09/01/2023 [facility] 07/13/2025 EVD35-0 6-040-1 20 / / [id number] [facility] Device Vascular Closure Femoral Artery Bioabsorbable Dual Method Vascade 6-7fr Collagen [id number] - [id number] Implanted:Qty: 1 on 09/01/2023 by Cristobal James MD at [facility] 04/22/2025 700-580 I-05U / / [id number] [employer] Supera 5.5mm 6fr 150mm 120cm Otw Self Expandable Closed End Braid J-48-800-120-P6 - [id number] Implanted:Qty: 1 on 09/01/2023 by Cristobal James MD at [facility] Vascular 04/23/2024 S-55-15 0-120-P 6 / [id number] [employer] Supera 6mm 6fr 100mm 120cm Peripheral Stent Vascular S-52-640-120-P6 - [id number] Implanted:Qty: 1 on 09/01/2023 by Cristobal James MD at [facility] Vascular 05/24/2024 S-60-10 0-120-P 6 / [id number] Medtronic Inc Everflex Entrust 6mm 150mm 120cm Self Expand Triaxial Low Profile - [id number] Implanted:Qty: 1 on 09/01/2023 [facility] 11/20/2025 EVD35-0 6-150-1 20 / / [id number] Procedures Procedure Name Priority Date/Time Associated Diagnosis Comments DEVICE CHECK - REMOTE Routine 09/20/2024 9:44 AM CDT Persistent atrial fibrillation (HCC) SSS (sick sinus syndrome) (HCC) TRANSTHORACIC ECHO (TTE) COMPLETE W DOPPLER/CF WO CONTRAST Routine 09/05/2024 11:27 AM CDT S/P TAVR (transcatheter aortic valve replacement) Coronary arteriosclerosis in [place] artery CTA ABDOMINAL AORTA AND BILATERAL ILIOFEMORAL RUNOFF IP Routine 03/27/2023 11:58 AM CDT from Last 3 Months or Most Recently Relevant to Health Maintenance Results * DEVICE CHECK - REMOTE (09/20/2024 9:44 AM CDT) Anatomical Region Laterality Modality Other Narrative 10/07/2024 1:[address] [employer] DDD Quadra Allure [id number] BI-V Pacemaker implanted for SSS/Afib on 10/04/18-Mario - Carloz AV Node Ablation 11/09/2018-Mario. Routine VVIR Pacemaker Remote. Transmission attached. Battery status: 2.98 V, 5.1-5.5 years remaining battery life to IAN. Stable lead impedances, pacing and sensing thresholds. Presenting rhythm: BP BIVP-95%. 1 Ventricular high rate episodes detected, IEGM demonstrates 2 seconds of NSVT. Medications: Eliquis 5 mg, Plavix 75 mg, amlodipine 10 mg, losartan 50 mg, metoprolol 25 mg See scanned report. Office pacemaker follow up: 9 months Melissa remote f/u 12/20/24. Eugene Calix RN us Jory Vásquez MD [facility] Final Result * TRANSTHORACIC ECHO (TTE) COMPLETE W DOPPLER/CF WO CONTRAST (09/05/2024 11:27 AM CDT) Anatomical Region Laterality Modality Ultrasound 09/05/2024 10:2 6 AM CDT Narrative 09/05/2024 11:32 AM CDT [facility] [address], [place] [address] [address] [facility] [address], [place] [address] P:[phone] P:[phone] Echocardiographic Report Patient Name: JAIR PENA L : 1945 Study Date: 09/05/2024 10:26:46 AM Gender: M Tech: Location: [facility] Provider: JORY VÁSQUEZ Height(Cm): 173 BSA: 1.88 Weight(Kg): 73.5 Heart Rate: 60 BP: 170 / 80 Quality: Good Order Provider: JORY VÁSQUEZ PROCEDURES: Echocardiographic Report: Transthoracic echocardiogram with complete 2D, M-Mode, and color Doppler examination. With Strain Analysis. INDICATIONS: S/P TAVR and I25.10 Atherosclerotic heart disease of [place] coronary artery without angina pectoris. MEASUREMENTS: 2D/MM Value Range Doppler Value Range EF Mod BP 47 % [ 52 - 72 ] LAWRENCE Vmax 1.80 cm2 [ 2.00 - 4.00 ] EF Teich MM 50 % [ 52 - 72 ] AV Mean PG 12 mmHg LVIDd 2D 4.96 cm [ 4.20 - 5.80 ] AV Peak Haider 2.29 m/s [ 1.00 - 1.70 ] LVIDd MM 4.93 cm [ 4.20 - 5.80 ] AV Peak PG 21 mmHg LVIDs 2D 3.59 cm [ 2.50 - 4.00 ] AV VTI 50.30 cm LVIDs MM 3.68 cm [ 2.50 - 4.00 ] LVOT Diam 1.95 cm [ 1.70 - 2.10 ] LVPWd 2D 1.08 cm [ 0.60 - 1.00 ] LVOT Peak Haider 1.38 m/s [ 0.70 - 1.10 ] LVPWd MM 0.86 cm [ 0.60 - 1.00 ] LVOT VTI 32.29 cm IVSd 2D 1.20 cm [ 0.60 - 1.00 ] MV E Peak Haider 1.32 m/s [ 0.60 - 1.30 ] IVSd MM 1.04 cm [ 0.60 - 1.00 ] MV Decel Time 168 msec [ 104 - 258 ] LA Dimension MM 4.96 cm [ 3.00 - 4.00 ] PV Peak Haider 1.00 m/s [ 0.40 - 0.80 ] AoR Diam MM 3.16 cm [ 3.10 - 3.70 ] TR Peak Haider 3.26 m/s [ 1.00 - 2.80 ] LA Volume Index 37 cc/m2 [ 16 - 34 ] TR Peak PG 42 mmHg RVSP 50.00 mmHg [ 10.00 - 36.00 ] Lateral E` 0.06 m/s [ 0.10 - 0.15 ] E` 0.04 m/s E/E` 21 2D/MM Value Range Doppler Value Range - FINDINGS: Interpretation Site: Exam was interpreted at [facility]. Left Ventricle: Normal left ventricular size. Mild concentric left ventricular hypertrophy. Mild global left ventricular systolic dysfunction. Diastolic dysfunction is present. Ejection fraction is measured at 47 %. Global Longitudinal Strain is -14 %. GLS is abnormal. Right Ventricle: Normal right ventricular size. Moderate right ventricular hypokinesis. Left Atrium: There is moderate enlargement of left atrium. Right Atrium: The right atrium is normal in size. Atrial Septum: Normal atrial septum. Mitral Valve: Normal appearance of the mitral valve. Mild mitral valve regurgitation. There is no hemodynamically significant mitral stenosis by Doppler. Aortic Valve: No evidence of hemodynamically significant aortic stenosis by Doppler. Peak Velocity of 2.29 m/s. Peak gradient of 21.0 mmHg. Mean gradient of 12.0 mmHg. Valve area of 1.8 cm2. No aortic regurgitation. Normal appearing aortic valve prosthesis. Gradients normal for valve type and size. Tricuspid Valve: Normal appearance of the tricuspid valve. Estimated peak RVSP is 50 mmHg. Mild tricuspid regurgitation. Pulmonic Valve: Normal appearance of the pulmonic valve. Mild pulmonic regurgitation. Pericardium: Normal pericardium with no significant pericardial effusion. Aorta: Sinus of Valsalva is normal. IVC: Normal size and normal respiratory collapse consistent with normal right atrial pressure (<5 mmHg). Pulmonary Artery: Normal pulmonary artery size. CONCLUSIONS: Normal left ventricular size. Mild concentric left ventricular hypertrophy. Mild global left ventricular systolic dysfunction. Diastolic dysfunction is present. Ejection fraction is measured at 47 %. Global Longitudinal Strain is -14 %. GLS is abnormal. Normal right ventricular size. Moderate right ventricular hypokinesis. There is moderate enlargement of left atrium. Mild mitral valve regurgitation. No evidence of hemodynamically significant aortic stenosis by Doppler. Peak Velocity of 2.29 m/s. Peak gradient of 21.0 mmHg. Mean gradient of 12.0 mmHg. Valve area of 1.8 cm2. No aortic regurgitation. Normal appearing aortic valve prosthesis. Gradients normal for valve type and size. Estimated peak RVSP is 50 mmHg. Mild tricuspid regurgitation. Mild pulmonic regurgitation. Electronically Signed By: Dr. Ishaan Valdovinos [facility] 09/05/2024 11:30:58 AM CDT Procedure Note Ishaan Valdovinos MD - 09/05/2024 [facility] [address] [facility] [address] [address] [address] [facility] [address], [place] [address] P:[phone] P:[phone] Echocardiographic Report Patient Name: JAIR PENA L : 1945 Study Date: 09/05/2024 10:26:46 AM Gender: M Tech: Location: [facility] Provider: JORY VÁSQUEZ Height(Cm): 173 BSA: 1.88 Weight(Kg): 73.5 Heart Rate: 60 BP: 170 / 80 Quality: Good Order Provider: JORY VÁSQUEZ PROCEDURES: Echocardiographic Report: Transthoracic echocardiogram with complete 2D, M-Mode, and color Dopplerexamination. With Strain Analysis. INDICATIONS: S/P TAVR and I25.10 Atherosclerotic heart disease of [place] coronaryartery without angina pectoris. MEASUREMENTS: 2D/MM Value Range Doppler ValueRange EF Mod BP 47 % [ 52 - 72 ] LAWRENCE Vmax 1.80cm2 [ 2.00 - 4.00 ] EF Teich MM 50 % [ 52 - 72 ] AV Mean PG 12mmHg LVIDd 2D 4.96 cm [ 4.20 - 5.80 ] AV Peak Haider 2.29m/s [ 1.00 - 1.70 ] LVIDd MM 4.93 cm [ 4.20 - 5.80 ] AV Peak PG 21mmHg LVIDs 2D 3.59 cm [ 2.50 - 4.00 ] AV VTI 50.30cm LVIDs MM 3.68 cm [ 2.50 - 4.00 ] LVOT Diam 1.95 cm[ 1.70 - 2.10 ] LVPWd 2D 1.08 cm [ 0.60 - 1.00 ] LVOT Peak Haider 1.38m/s [ 0.70 - 1.10 ] LVPWd MM 0.86 cm [ 0.60 - 1.00 ] LVOT VTI 32.29cm IVSd 2D 1.20 cm [ 0.60 - 1.00 ] MV E Peak Haider 1.32m/s [ 0.60 - 1.30 ] IVSd MM 1.04 cm [ 0.60 - 1.00 ] MV Decel Time 168msec [ 104 - 258 ] LA Dimension MM 4.96 cm [ 3.00 - 4.00 ] PV Peak Haider 1.00m/s [ 0.40 - 0.80 ] AoR Diam MM 3.16 cm [ 3.10 - 3.70 ] TR Peak Haider 3.26m/s [ 1.00 - 2.80 ] LA Volume Index 37 cc/m2 [ 16 - 34 ] TR Peak PG 42mmHg RVSP 50.00 mmHg [ 10.00 - 36.00 ] Lateral E` 0.06 m/s [ 0.10 - 0.15 ] E` 0.04 m/s E/E` 21 2D/MM Value Range Doppler ValueRange - FINDINGS: Interpretation Site: Exam was interpreted at [facility]. Left Ventricle: Normal left ventricular size. Mild concentric left ventricularhypertrophy. Mild global left ventricular systolic dysfunction. Diastolic dysfunction is present.Ejection fraction is measured at 47 %. Global Longitudinal Strain is -14 %. GLS isabnormal. Right Ventricle: Normal right ventricular size. Moderate right ventricular hypokinesis. Left Atrium: There is moderate enlargement of left atrium. Right Atrium: The right atrium is normal in size. Atrial Septum: Normal atrial septum. Mitral Valve: Normal appearance of the mitral valve. Mild mitral valve regurgitation.There is no hemodynamically significant mitral stenosis by Doppler. Aortic Valve: No evidence of hemodynamically significant aortic stenosis by Doppler.Peak Velocity of 2.29 m/s. Peak gradient of 21.0 mmHg. Mean gradient of 12.0 mmHg. Valvearea of 1.8 cm2. No aortic regurgitation. Normal appearing aortic valve prosthesis.Gradients normal for valve type and size. Tricuspid Valve: Normal appearance of the tricuspid valve. Estimated peak RVSP is 50 mmHg.Mild tricuspid regurgitation. Pulmonic Valve: Normal appearance of the pulmonic valve. Mild pulmonic regurgitation. Pericardium: Normal pericardium with no significant pericardial effusion. Aorta: Sinus of Valsalva is normal. IVC: Normal size and normal respiratory collapse consistent with normal rightatrial pressure (<5 mmHg). Pulmonary Artery: Normal pulmonary artery size. CONCLUSIONS: Normal left ventricular size. Mild concentric left ventricularhypertrophy. Mild global left ventricular systolic dysfunction. Diastolic dysfunction is present.Ejection fraction is measured at 47 %. Global Longitudinal Strain is -14 %. GLS isabnormal. Normal right ventricular size. Moderate right ventricular hypokinesis. There is moderate enlargement of left atrium. Mild mitral valve regurgitation. No evidence of hemodynamically significant aortic stenosis by Doppler.Peak Velocity of 2.29 m/s. Peak gradient of 21.0 mmHg. Mean gradient of 12.0 mmHg. Valvearea of 1.8 cm2. No aortic regurgitation. Normal appearing aortic valve prosthesis.Gradients normal for valve type and size. Estimated peak RVSP is 50 mmHg. Mild tricuspid regurgitation. Mild pulmonic regurgitation. Electronically Signed By: Dr. Ishaan Valdovinso [facility] 09/05/2024 11:30:58 AM CDT us Jory Vásquez MD CV ECHO PROCEDURES Final Result * CTA Abdominal Aorta And Bilateral Iliofemoral Runoff (03/27/2023 11:58 AM CDT) Anatomical Region Laterality Modality Body Bilateral Computed Tomogra phy 03/27/2023 5:18 PM CDT Impressions 03/30/2023 11:28 AM FRONT MAKER LOCKSTITCH Atherosclerotic nonaneurysmal aorta . Calcified plaque with moderate to severe SMA, moderate celiac, moderate to severe renal artery stenoses worse left. Bilateral proximal superficial femoral artery occlusion calcification at the popliteal artery. Moderate to severe right and moderate left popliteal artery stenosis. Moderate to severe right and moderate left tibioperoneal stenoses. Proximal right and distal left anterior tibial artery occlusion. Two-vessel runoff on the right with moderate right posterior tibial and peroneal stenosis and peroneal artery supplying the dorsal arch. One-vessel runoff on the left with left posterior tibial supplying the plantar arch and attenuated peroneal terminating at the hindfoot. Proximal left internal iliac artery occlusion. Cardiomegaly with small to moderate right effusion and right lower lobe atelectasis. Cholelithiasis in nondistended gallbladder. Colonic diverticulosis. Electronically signed by: Petra Fleming M.D. Narrative 03/30/2023 11:28 AM FRONT MAKER LOCKSTITCH EXAMINATION: CT ANGIOGRAPHY OF THE ABDOMEN/PELVIS/LOWER EXTREMITIES WITH INTRAVENOUS CONTRAST Date: 03/27/2023 11:00 AM History: Peripheral arterial disease (PAD), prior revasc, asymptomatic Technique: Transaxial computed tomographic images of the abdomen, pelvis, and lower extremities were obtained after the administration of 95 mL of Optiray 350 intravenously using an AIF protocol. Multiplanar coronal and sagittal images were reformatted. 3D volumetric analysis with VRT and MIP images were created on a dedicated workstation. Comparison: None. Findings: Vascular findings: Atherosclerotic nonaneurysmal aorta is seen with marked irregular circumferential soft and calcified plaque. Celiac artery: Calcified plaque with moderate ostial stenosis and classic branching noted. SMA: Multifocal calcified plaque with moderate to severe proximal stenoses is seen . AMAIRANI: Patent without soft plaque and proximal stenosis. Right renal artery: Calcified and soft plaque with moderate to severe ostial and proximal stenosis is seen. Left renal artery: Calcified plaque with severe proximal stenosis noted. Right common iliac: Circumferential calcified plaque with mild stenosis is seen. Left common iliac: Circumferential calcified and soft plaque with mild to moderate stenosis is seen. Right external iliac: Calcified and soft plaque with mild to moderate stenoses noted. Left external iliac: Calcified plaque and mild stenosis is seen. Right internal iliac: Calcified plaque and moderate stenosis is seen. Left internal iliac: Calcified and soft plaque with proximal occlusion and distal branch reconstitution noted. Right common femoral: Soft and calcified plaque with mild stenosis is seen. Left common iliac: Calcified and soft plaque with mild stenosis noted. Right superficial femoral artery: Calcified soft plaque with occlusion at the origin is seen. Left superficial femoral artery: Severe proximal stenosis and occlusion is seen. Right profunda femoral artery: Proximal calcified plaque and moderate stenosis noted. Left profunda femoral artery: Proximal calcified plaque and mild stenosis noted. Right popliteal artery: Proximal reconstitution [id number] is present with calcified plaque and moderate to severe distal stenosis. Left popliteal artery: Proximal reconstitution [id number] is noted with calcified plaque and moderate stenosis. Right tibioperoneal trunk: Calcified plaque and moderate to severe stenosis noted. Left tibioperoneal trunk: Calcified plaque with moderate to severe stenosis is seen. Right anterior tibial: Occlusion at the proximal calf is noted. Left anterior tibial: Proximal calcified plaque and moderate stenosis is seen with occlusion at the mid-distal calf. Right posterior tibial: Moderate proximal stenosis is seen and patent to the hindfoot. Distal reconstitution of the dorsal arch noted. Left posterior tibial: Patent to the foot supplying the plantar arch. Right peroneal: Calcified plaque and moderate proximal stenosis is seen though patent to the foot supplying the dorsal arch with multifocal calcified plaque and stenosis.. Left peroneal: Moderately attenuated and patent to the hindfoot. Distal reconstitution of the dorsal arch is seen. Nonvascular findings: Small to moderate right effusion and mild dependent right lower lobe atelectasis is noted. Moderate cardiac enlargement and partial imaged left pacemaker with right atrial and ventricular leads is seen.. The liver, spleen, pancreas and adrenals are unremarkable. Multiple calcified gallstones are seen in a nondistended gallbladder. There is no biliary distention. No hydronephrosis or nephrolithiasis is seen. Partial fluid-filled stomach is seen. Diverticulosis especially descending and sigmoid colon is present without CT evidence for acute diverticulitis. The appendix is unremarkable.. There is no evidence of intestinal obstruction. There is no free intraperitoneal air or fluid. The urinary bladder is normal. The prostate is upper normal in size with left paramedian calcification.. There is no suspicious mesenteric or retroperitoneal lymphadenopathy. The osseous structures are intact. Procedure Note Petra Fleming MD - 03/30/2023 EXAMINATION: CT ANGIOGRAPHY OF THE ABDOMEN/PELVIS/LOWER EXTREMITIES WITH INTRAVENOUS CONTRAST Date: 03/27/2023 11:00 AM History: Peripheral arterial disease (PAD), prior revasc, asymptomatic Technique: Transaxial computed tomographic images of the abdomen, pelvis, and lower extremities were obtained after the administration of 95 mL of Optiray 350 intravenously using an AIF protocol. Multiplanar coronal and sagittal images were reformatted. 3D volumetric analysis with VRT and MIP images were created on a dedicated workstation. Comparison: None. Findings: Vascular findings: Atherosclerotic nonaneurysmal aorta is seen with marked irregular circumferential soft and calcified plaque. Celiac artery: Calcified plaque with moderate ostial stenosis and classic branching noted. SMA: Multifocal calcified plaque with moderate to severe proximal stenoses is seen . AMAIRANI: Patent without soft plaque and proximal stenosis. Right renal artery: Calcified and soft plaque with moderate to severe ostial and proximal stenosis is seen. Left renal artery: Calcified plaque with severe proximal stenosis noted. Right common iliac: Circumferential calcified plaque with mild stenosis is seen. Left common iliac: Circumferential calcified and soft plaque with mild to moderate stenosis is seen. Right external iliac: Calcified and soft plaque with mild to moderate stenoses noted. Left external iliac: Calcified plaque and mild stenosis is seen. Right internal iliac: Calcified plaque and moderate stenosis is seen. Left internal iliac: Calcified and soft plaque with proximal occlusion and distal branch reconstitution noted. Right common femoral: Soft and calcified plaque with mild stenosis is seen. Left common iliac: Calcified and soft plaque with mild stenosis noted. Right superficial femoral artery: Calcified soft plaque with occlusion at the origin is seen. Left superficial femoral artery: Severe proximal stenosis and occlusion is seen. Right profunda femoral artery: Proximal calcified plaque and moderate stenosis noted. Left profunda femoral artery: Proximal calcified plaque and mild stenosis noted. Right popliteal artery: Proximal reconstitution [id number] is present with calcified plaque and moderate to severe distal stenosis. Left popliteal artery: Proximal reconstitution [id number] is noted with calcified plaque and moderate stenosis. Right tibioperoneal trunk: Calcified plaque and moderate to severe stenosis noted. Left tibioperoneal trunk: Calcified plaque with moderate to severe stenosis is seen. Right anterior tibial: Occlusion at the proximal calf is noted. Left anterior tibial: Proximal calcified plaque and moderate stenosis is seen with occlusion at the mid-distal calf. Right posterior tibial: Moderate proximal stenosis is seen and patent to the hindfoot. Distal reconstitution of the dorsal arch noted. Left posterior tibial: Patent to the foot supplying the plantar arch. Right peroneal: Calcified plaque and moderate proximal stenosis is seen though patent to the foot supplying the dorsal arch with multifocal calcified plaque and stenosis.. Left peroneal: Moderately attenuated and patent to the hindfoot. Distal reconstitution of the dorsal arch is seen. Nonvascular findings: Small to moderate right effusion and mild dependent right lower lobe atelectasis is noted. Moderate cardiac enlargement and partial imaged left pacemaker with right atrial and ventricular leads is seen.. The liver, spleen, pancreas and adrenals are unremarkable. Multiple calcified gallstones are seen in a nondistended gallbladder. There is no biliary distention. No hydronephrosis or nephrolithiasis is seen. Partial fluid-filled stomach is seen. Diverticulosis especially descending and sigmoid colon is present without CT evidence for acute diverticulitis. The appendix is unremarkable.. There is no evidence of intestinal obstruction. There is no free intraperitoneal air or fluid. The urinary bladder is normal. The prostate is upper normal in size with left paramedian calcification.. There is no suspicious mesenteric or retroperitoneal lymphadenopathy. The osseous structures are intact. IMPRESSION: Atherosclerotic nonaneurysmal aorta . Calcified plaque with moderate to severe SMA, moderate celiac, moderate to severe renal artery stenoses worse left. Bilateral proximal superficial femoral artery occlusion calcification at the popliteal artery. Moderate to severe right and moderate left popliteal artery stenosis. Moderate to severe right and moderate left tibioperoneal stenoses. Proximal right and distal left anterior tibial artery occlusion. Two-vessel runoff on the right with moderate right posterior tibial and peroneal stenosis and peroneal artery supplying the dorsal arch. One-vessel runoff on the left with left posterior tibial supplying the plantar arch and attenuated peroneal terminating at the hindfoot. Proximal left internal iliac artery occlusion. Cardiomegaly with small to moderate right effusion and right lower lobe atelectasis. Cholelithiasis in nondistended gallbladder. Colonic diverticulosis. Electronically signed by: Petra Fleming M.D. Sneha Kang RING CUTTER LATHE OPERATOR IMG CT PROCEDURES Final Result from Last 3 Months or Most Recently Relevant to Health Maintenance Insurance MEDICARE MEDICARE TEAMSTERS MEDICARE TRUST TEAMSTERS MEDICARE TRUST MEDICARE TEAMSTERS MEDICARE TRUST Advance Directives For more information, please contact: [phone] Documents on File Type Date Recorded Patient Last Repairer Expl anation ADVANCE DIRECTIVE 05/23/2023 2:26 AM LIFE SUSTANING TREATMENT FORM * Full Code (Latest Code Status on File) Date Activated Date Inactivated Comments 08/13/2023 12:39 AM 09/11/2023 7:25 PM * Full Code Date Activated Date Inactivated Comments 04/29/2023 8:58 AM 05/08/2023 6:21 PM * LIMITED - No CPR Date Activated Date Inactivated Comments 04/26/2023 12:39 AM 04/29/2023 8:58 AM * Full Code Date Activated Date Inactivated Comments 04/25/2023 11:47 PM 04/26/2023 12:39 AM * Full Code Date Activated Date Inactivated Comments 03/26/2023 3:33 PM 03/30/2023 8:36 PM Care Teams Otolaryngologist Relationship Specialty Start Date End Date Timo Coronado DO PCP - General 08/22/16 Miscellaneous, Not In File 05/08/23
--- OUTSIDE RECORDS SUMMARY | 2024-10-30 07:48 | XMS_ITS | Encounter Summary ---
Author Organization [facility] Healthcare Address [address] [place] [address] Care Team Providers Care Straight Cutter Machine Name Role Phone Timo Coronado DO Primary Care Provider [phone]- [phone] Miscellaneous, Not In File Unavailable Unava ilable Encounter Details Date Type Department Care Team (Late st Contact Info) Description 10/25/[address] [facility] Cardiology [address] [place] [address] Parveen Vásquez MD [address] [id number] Social History Tobacco Use Types Packs/Day Years Used Date Smoking Tobacco: Former Cigarettes Q uit: 02/11/2002 Smokeless Tobacco: Never Alcohol Use Standard Drinks/Week Comments Not Currently 1 (1 standard drink = 0.6 oz pur e alcohol) N/ A beer may once per wk [facility] Utilities Answer Date Recorded In the past 12 months has [employer], gas, oil, or water Next Safety threatened to shut off services in your home? No 08/13/2023 Social Connection and Isolation Panel [NHANES] A nswer Date Recorded In a typical week, how many times do you talk on the phone with family, friends, or neighbors? Once a week 08/13/2023 How often do you get together with friends or re latives? Once a week 08/13/2023 How often do you attend baptist or cheondoism serv ices? Never 08/13/2023 Do you belong to any clubs o r organizations such as baptist groups, unions, fraternal or athletic groups, or [...] place to sleep or slept in a intermediate (including now)? No 08/13/2023 Personal Safety Answer Date Recorded Have you ever been in or are you currently in a harmful physical or emotional relationship or is someone making you feel afraid or unsafe? Denies 08/13/2023 Sex and Gender Information Value Date Recorded Sex Assigned at Not on file Legal Sex Male 8:02 AM ADMITTED ATTORNEYS Gender Identity Male 05/28/2021 12:28 PM ADMITTED ATTORNEYS Sexual Orientation Not on file documented as of this encounter Ordered Prescriptions Prescription Sig Dispense Quantity Refills Last Filled Start Date End Date losartan (COZAAR) 50 mg tablet Take 1 tablet (50 mg total) by mouth daily 90 tablet 2 10/25/2024 documented in this encounter Miscellaneous Notes * Telephone Encounter - Dayanna Virk MA - 10/25/2024 12:51 PM CDT Sent script for (COZAAR) 50 mg with 90 day supply as requested. * Telephone Encounter - Monica Hung - 10/25/2024 12:15 PM CDT Patient requesting refill for losartan (COZAAR) 50 mg with 90 day supply. Please send to [facility]. Thank you. Contact: documented in this encounter Plan of Treatment Not on file documented as of this encounter Visit Diagnoses Not on filedocumented in this encounter Discontinued Medications Medication Sig Discontinue Reason Start Date End Da te losartan (COZAAR) 50 mg tablet TAKE 1 TABLET BY MOUTH EVERY DAY Reorder 01/19/2024 10/25/2024 documented as of this encounter Care Teams Straight Cutter Machine Relationship Specialty Start Date End Date Timo Coronado DO PCP - General 08/22/16 Miscellaneous, Not In File 05/08/23 documented as of this encounter
--- OUTSIDE RECORDS SUMMARY | 2024-10-30 07:48 | XMS_ITS | Encounter Summary ---
Author Organization [facility] Address [address] [place] [id number] Care Team Providers Care Application Trainer Name Role Phone Timo Coronado DO Primary Care Provider +1- [phone] Miscellaneous, Not In File Unavailable Unava ilable Encounter Details Date Type Department Care Team (Late st Contact Info) Description 08/25/2016 Orders Only [facility] ProviderBing MD [address] [place] [id number] Social History Tobacco Use Types Packs/Day Years Used Date Smoking Tobacco: Former Cigarettes Q uit: 05/25/2002 Alcohol Use Standard Drinks/Week Comments No 0 (1 standard drink = 0.6 oz pur e alcohol) Sex and Gender Information Value Date Recorded Sex Assigned at Not on file Legal Sex Male 8:02 AM WASTE TRANSPORTATION TECHNICIAN Gender Identity Male 05/28/2021 12:28 PM WASTE TRANSPORTATION TECHNICIAN Sexual Orientation Not on file documented as of this encounter Plan of Treatment Not on file documented as of this encounter Procedures Procedure Name Priority Date/Time Associated Diagnosis Comments CARDIOLOGY REPORT 08/25/2016 documented in this encounter Results * CARDIOLOGY REPORT (08/25/2016) Anatomical Region Laterality Modality Other Narrative 08/25/2016 Ordered by an unspecified provider. Historical Provider [facility] Final Result documented in this encounter Visit Diagnoses Not on filedocumented in this encounter Additional Health Concerns Infection Onset Date Last Indicated Resolved Time COVID: Suspected 08/13/2023 08/13/2023 08/13/2023 11:26 AM CDT documented as of this encounter Care Teams Application Trainer Relationship Specialty Start Date End Date Timo Coronado DO PCP - General 08/22/16 Miscellaneous, Not In File 05/08/23 documented as of this encounter
--- OUTSIDE RECORDS SUMMARY | 2024-10-30 07:48 | XMS_ITS | Clinical Summary ---
Author Organization [facility] Address [address] [place] [address] Care Team Providers Care Epidemiology Internship Name Role Phone Unavailable Primary Care Provider Unavailabl e Source Comments [facility],non-owned Affiliates and Associated Physician Practices is amultiple site organization consisting of ambulatory clinics and hospital sitesin [place], [place], [place] and [place]. This disclosure is being madepursuant to the Care Everywhere program and may not contain all information available regarding this patient. Last updated 18.[facility] Allergies No known active allergies Social History Tobacco Use Types Packs/Day Years Used Date Smoking Tobacco: Never Assessed Sex and Gender Information Value Date Recorded Sex Assigned at Not on file Legal Sex Male 5:26 AM ENGAGEMENT LIAISON Gender Identity Not on file Sexual Orientation Not on file Plan of Treatment Health Maintenance Due Date Last Done Comments DTAP/TDAP/TD VACCINES (1 - Tdap) 02/05/1964 PNEUMOCOCCAL VACCINE 50+ (1 of 1 - PCV) 1995 ZOSTER VACCINE (1 of 2) 1995 Respiratory Syncytial Virus (RSV) Vaccine Pt: or over 60 yrs (1 - 1-dose 75+ series) 02/05/2020 COVID-19 VACCINE ( - 2023-2 5 season) 2024 DEPRESSION SCREENING 05/25/2024 INFLUENZA VACCINE (Season Ended) 2025 HEPATITIS B VACCINE Aged Out No longe r eligible based on patient's age to complete this topic HIB VACCINE Aged Out No longer eligi ble based on patient's age to complete this topic HPV VACCINE Aged Out No longer eligi ble based on patient's age to complete this topic MENINGOCOCCAL (Group B) VACC INE SHARED DECISION-MAKING Aged Out No longer eligibl e based on patient's age to complete this topic MENINGOCOCCAL GROUPS A/C/Y/W VACCINE Aged Out No longer eligible b ased on patient's age to complete this topic [place] [address]
--- OUTSIDE RECORDS SUMMARY | 2024-10-30 07:48 | XMS_ITS | CONTINUITY OF CARE DOCUMENT ---
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 2015 Obdulia Ohara RN Chest discomfort, atypical active Obdulia Ohara RN RBBB active Obdulia Ohara RN Peripheral artery disease active Obdulia Ohara RN Dyslipidemia active Obdulia Ohara RN HTN active Obdulia Ohara RN Carotid artery disease active Obdulia Ohara RN CAD w/previous MA & CABG active Obdulia Smith N Atrial fibrillation, paroxysmal active Obdulia Ohara RN Atrial flutter active Obdulia Ohara RN ENCOUNTERS Date Type Provider Location Encounter Diagnosis - In-person encounter Office Visit Duke Will DO [facility] - In-person encounter Office Visit Duke Will DO [facility] VITAL SIGNS Date Observation Value Provider blood pressure, diastolic 64 mm[Hg] Shiela ospinaha [facility] blood pressure, systolic 130 mm[Hg] Lizzy lara [facility] pulse rate 70 /min Yana [facility]'Bon oxygen saturation, oximetry 94 % Yana O'Bon respiratory rate E&M 18 /min Yana [facility] Body Mass Index (Ratio) 31.75 kg/m2 Javy Joeal weight E&M 215 [lb_av] Yana Joeal blood pressure, diastolic 85 mm[Hg] Everardo moore [facility] blood pressure, systolic 145 mm[Hg] Montrell moreira [facility] pulse rate 75 /min Carmen [facility] oxygen saturation, oximetry 96 % Carmen [facility] E&M 16 /[facility] (Ratio) 31.89 kg/m2 Scotty siegel [facility] weight E&M 216 [lb_av] Carmen [facility] height E&M 69 [in_i] [facility] ALLERGIES No Known Drug Allergies RESULTS Date Observation Value Provider Reference Range Interpretation Location prothrombin time (patient) 32.7 s [facility] 9.0-11.5 High international normalized ratio (INR) 3.1 [facility] High PTT patient 46 s [facility] 22-34 High basophils as percent of blood leukocytes 0.2 % [facility] Normal eosinophils as percent of blood leukocytes 2.0 % [facility] Normal monocyte count, blood 7.3 % [facility] Normal lymphocyte count, blood 33.4 % [facility] Normal neutrophils as percent of blood leukocytes 57.1 % [facility] Normal basophils, absolute, manual 18 cells/mcL [facility] 0-200 Normal eosinophils, absolute, manual 176 cells/mcL [facility] 15-500 Normal monocytes, absolute, manual 642 cells/mcL [facility] 200-950 Normal lymphocytes, absolute 2939 CELLS/UL [facility] 850-3900 Normal Absolute Neutrophil count 5025 cells/mcL [facility] 8186-4446 Normal mean platelet volume 10.5 fL [facility] 7.5-11.5 Normal platelet count 160 THOUSAND/UL [facility] 140-400 Normal red blood cell distribution width 15.2 % [facility] 11.0-15.0 High mean corpuscular hemoglobin concentration, RBC 32.6 G/DL [facility] 32.0-36.0 Normal mean corpuscular hemoglobin, RBC 29.2 pg [facility] 27.0-33.0 Normal mean corpuscular volume, RBC 89.7 fL [facility] 80.0-100.0 Normal hematocrit, blood 45.1 % [facility] 38.5-50.0 Normal hemoglobin electrophoresis, blood 14.7 [facility] 13.2-17.1 Normal erythrocyte (RBC) count 5.03 MILLION/UL [facility] 4.20-5.80 Normal leukocyte (white blood cells) count, blood 8.8 THOUSAND/UL [facility] 3.8-10.8 Normal calcium, serum 9.2 mg/dL [facility] 8.6-10.3 Normal carbon dioxide, venous blood 30 mmol/L [facility] 20-31 Normal chloride, serum 103 mmol/L [facility] 98-110 Normal potassium, serum 4.1 mmol/L [facility] 3.5-5.3 Normal sodium, serum 141 mmol/L [facility] 135-146 Normal urea nitrogen/creatini ne ratio, serum NOT APPLICABLE (calc) [facility] 6-22 Estimated Glomerular Filtration Rate (calc) 91 mL/min/{1.73_m 2} [facility] > OR = 60 Normal creatinine, serum 0.97 mg/dL [facility] 0.70-1.18 Normal urea nitrogen, blood 15 mg/dL [facility] 7-25 Normal blood glucose, random 144 mg/dL [facility] 65-99 High HISTORY OF MEDICATION USE Medication Status Instructions Dates Provider Indications Com ments NORVASC 5 MG ORAL TABLET active ONE TAB. DAILY 1 Yana Almeida ASPIRIN EC 81 MG ORAL TABLET DELAYED RELEASE active one tab daily 5 Obdulia Ohara RN LOSARTAN POTASSIUM 100 MG ORAL TABLET active one tab daily 5 Obdulia Ohara RN VITAMIN D TABLET active 1K untis daily 5 Obdulia Ohara RN DAILY-VITAMIN ORAL TABLET active one tab daily 5 Obdulia Ohara RN CILOSTAZOL 50 MG ORAL TABS (CILOSTAZOL) active one tab twice a day 5 Carmen Moreno TAMSULOSIN HCL 0.4 MG ORAL CAPSULE completed one cap daily 5 - 8 Carmen Moreno SIMVASTATIN 40 MG ORAL TABLET active ONE TAB. DAILY 5 Obdulia Ohara RN COUMADIN TABLET active dose & sig per nga MARQUES 5 Obdulia Ohara RN METOPROLOL TARTRATE 50 MG ORAL TABLET active 1 & 1/2 tabs twice daily 5 Obdulia Ohara RN SOCIAL HISTORY Date Observation Value Provider social history E&M S moking History: Hamlet salcedo is a former smoker. Duke Will DO social history reviewed E&M revi ewed - no changes required Duke Will DO number of grandchildren Duke Araya O Yana Elle smoking status Former smoker Yana Michael'Kya l social history E&M S moking History: Hamlet salcedo is a former smoker. Duke Will DO social history reviewed E&M revi ewed - no changes required Duke Will DO number of years as a smoker 30 a Carmen Moreno smoking, year quit 2001 Carmen mann cigarette use yes Carmen Moreno smoking status Former smoker Carmen Luevano ck FAMILY HISTORY Family Member Condition Father Family History of Co ngestive Heart Failure: Mother Family History of Co ngestive Heart Failure: INSURANCE PROVIDERS Payer name Policy type / Coverage type [employer] party ID [employer] MEDICARE TRUST Commercial insurance co [facility] [id number] [place] MEDICARE PART B Medicare [id number] TREATMENT PLAN Date Name Performer EP:follows with Fahad augustin DO EP: B P today: 130/64 P rior BP: 145/85 (12/27/2015) Labs Reviewed: C reat: 0.97 (01/03/2016) Duke Will DO EP:last documented a fib 2003, but with repeated afib during ablation requiring CDVN. will get 30 day telesentry to assess PAF. CONTINUE warfarin Duke Will DO EP:S/P successful ab lation of CTI RA flutter 01/07. no recurrence Duke Will DO EP: B P today: 145/85 Duke Will DO EP:preserved LVF Duke Will DO EP:none docuemnted s kehinde 2004 h ad amarousis fugax with AF. c ontinue warfarin Duke Will DO EP:appears typical C TI RA flutter by EKG 2 CDVN since october 2015 p rior PAF in 2003, none since discussed options. he desires ablation. w ill get barbara at time of ablation with anesthesia/CARTO. c ontinue warfarin during procedure Duke Will DO Date Name Mobile Cardiac Tele BASIC METABOLIC PANE L W/EGFR CBC (INCLUDES DIFF/P LT) PARTIAL THROMBOPLAST IN TIME, ACTIVATED PROTHROMBIN TIME WIT H INR ABLATION w/ Anesthes ia BARBARA - CNE Sleep Study Home HISTORY OF PROCEDURES Procedure Date Procedure Name Provider Procedure Notes S tatus Mobile Cardiac Telem etry - Tech Nisa Bryant completed Mobile Cardiac Telem etry - Prof Nisa Bryant completed EKG Duke Will DO comple bunny SNOMED-CT: [id number] Current Medications Documented Duke Laurens completed EKG Duke Will DO comple bunny SNOMED-CT: [id number] Current Medications Documented Duke Rodriguezeron HAM completed
--- OUTSIDE RECORDS SUMMARY | 2024-10-30 07:48 | XMS_ITS | Encounter Summary ---
Author Organization [facility] Healthcare Address [address] [place] [address] Care Team Providers Care Combat Systems Operator Mine Warfare Name Role Phone Timo Coronado DO Primary Care Provider [phone] Miscellaneous, Not In File Unavailable Unava ilable Encounter Details Date Type Department Care Team (Latest Contact Info) Description 09/14/2024 Results Follow-Up [facility] Cardiology [address] [place] [address] Parveen Vásquez MD [address] [id number] Transthoracic Echo (TTE) Complete W Doppler/CF Social History Tobacco Use Types Packs/Day Years Used Date Smoking Tobacco: Former Cigarettes Q uit: 02/11/2002 Smokeless Tobacco: Never Alcohol Use Standard Drinks/Week Comments Not Currently 1 (1 standard drink = 0.6 oz pur e alcohol) N/ A beer may once per wk [facility] Utilities Answer Date Recorded In the past 12 months has th [employer] electric, gas, oil, or water company threatened to [...] week 08/13/2023 How often do you attend yazdanism or restorationism serv ices? Never 08/13/2023 Do you belong to any clubs o r organizations such as yazdanism groups, unions, fraternal or athletic groups, or [...] place to sleep or slept in a prison (including now)? No 08/13/2023 Personal Safety Answer Date Recorded Have you ever been in or are you currently in a harmful physical or emotional relationship or is someone making you feel afraid or unsafe? 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
--- OUTSIDE RECORDS SUMMARY | 2024-10-30 07:49 | XMS_ITS | Clinical Summary ---
Author Organization [facility] [place] [address] Address [address] [place] [address] Care Team Providers Care Maintenance Carpenter Name Role Phone Timo Coronado DO Primary Care Provider [phone]- [phone] Miscellaneous, Not In File Unavailable Unava ilable Allergies No known active allergies Medications TRELEGY [...] 05/01/2023 Assessment & Plan (05/07/2023 6:43 PM MANAGER TRADING): Mr. Pena is a 78 yo M [...] (10/25/2018): Added automatically from request for surgery [id number] Pacemaker 10/04/2018 Overview (12/14/2018): [employer] DDD Quadra Allure [id number] BI-V Pacemaker implanted for SSS/Afib on 10/04/18-Mario - Carloz AV Node Ablation 11/09/2018-Mario. BUTLER (dyspnea on exertion) 01/12/2018 Nonrheumatic aortic valve stenosis 02/11/2017 Primary hypertension 02/11/2017 Assessment & Plan (07/31/2023 1:27 PM MANAGER TRADING): Stable continue losartan 50 mg. PVD (peripheral vascular disease) 02/11/2017 Obstructive sleep apnea syndrome 08/05/2016 Overview (10/17/2016): MAGDALENE (obstructive sleep apnea) [facility] current use of anticoagulant therapy 0 12/21/2015 Overview (08/29/2016): Chronic anticoagulation Atypical chest pain 12/07/2015 Dyslipidemia 12/07/2015 Assessment & Plan (07/31/2023 1:28 PM MANAGER TRADING): Stable continue Lipitor 80 mg. RBBB 12/07/2015 Stenosis of carotid artery 12/05/2014 Assessment & Plan (07/31/2023 1:27 PM MANAGER TRADING): Occlusion of right internal carotid artery. Left [...] (08/29/2016): Disorder of artery Coronary arteriosclerosis in picayune artery 05/09 Overview (08/29/2016): Coronary arteriosclerosis in picayune artery Encounters Date Type Department Care Team Description 10/25/2024 Telephone [facility] Cardiology [address] [place] [address] [address] [place] [phone] Jory Bello MD 10/04/2024 10:00 AM CDT Office Visit [facility] Cardiology [address] [place] [address] [place] [phone] Jory Bello MD Coronary arteriosclerosis in picayune artery (Primary Dx); Hyperlipidemia LDL goal <70; Persistent atrial fibrillation (HCC); PAD (peripheral artery disease); Pulmonary hypertension (HCC) 09/20/2024 7:30 AM CDT Ancillary Procedure [facility] Cardiology [address] [facility] [address] [place] [phone] Pacemaker (Primary Dx); Persistent atrial fibrillation (HCC); SSS (sick sinus syndrome) (HCC) 09/14/2024 Results Follow-Up [facility] Cardiology [address] [place] [address] [address] [place] [phone] Jory Bello MD Transthoracic Echo (TTE) Complete W Doppler/CF 09/12/2024 Telephone [facility] Cardiology [address] [place] [phone] Jory Bello MD 09/07/2024 Telephone [facility] Cardiology [facility] [address] [place] [phone] Jory Bello MD 09/05/2024 10:15 AM CDT Ancillary Procedure [address] [place] [phone] S/P TAVR (transcatheter aortic valve replacement); Coronary arteriosclerosis in picayune artery 08/15/[address] [place] [phone] Jory Bello MD from Last 3 Months Immunizations Immunization Administration Dates Next Due Influenza, Quadrivalent, Hig h Dose, Preservative Free, Intrr 04/29/2023(),03/13/2020 Influenza, Trivalent, Adjuva nted, Intramuscular 03/09/2019 Influenza, Trivalent, High D ose, Split, Preservative Free, Intramuscular 03/26/2018,03/25/2018,03/05/2017 PPD TEST 05/23/2023,05/12/2023 Surgical History Surgery Date Site/Laterality Comments CORONARY ARTERY BYPASS GRAFT 03/02/2011 cabg x 5 CARDIAC CATHETERIZATION 05/25/2010 - 05/24/2011 THORACENTESIS W IMAGING RIGHT 08/19/2023 Right Medical History Medical History Date Comments Hx Other Medical Arrhythmias, PA F since 2006 Atrial fibrillation (HCC) Hypertension Hyperlipidemia COPD (chronic obstructive pulmonary disease) (HC C) Carotid artery disease CHF (congestive heart failure) (HCC) Coronary artery disease TIA (transient ischemic attack) possible TIA Sleep apnea CPAP BPH (benign prostatic hyperplasia) Family History Medical History Relation Name Comments Coronary artery disease Father Oj nary Artery Disease; Coronary artery disease Mother Oj nary Artery Disease; Relation Name Status Comments Father Mother Social History Tobacco Use Types Packs/Day Years Used Date Smoking Tobacco: Former Cigarettes Q uit: 02/11/2002 Smokeless Tobacco: Never Tobacco Cessation:Counseling Given: Not Answered Alcohol Use Standard Drinks/Week Comments Not Currently 1 (1 standard drink = 0.6 oz pur e alcohol) N/ A beer may once per wk [facility] Utilities Answer Date Recorded In the past 12 months has th e electric, gas, oil, or water company threatened [...] week 08/13/2023 How often do you attend anabaptism or episcopal serv ices? Never 08/13/2023 Do you belong to any clubs o r organizations such as anabaptism groups, unions, fraternal or athletic groups, or [...] on file Legal Sex Male 8:02 AM MANAGER TRADING Gender Identity Male 05/28/2021 12:28 PM MANAGER TRADING Sexual Orientation Not on file Obstetrics History Last Filed Vital Signs Vital Sign Reading Time Taken Comments Blood Pressure 144/72 10/04/2024 10:14 AM CDT Pulse 60 10/04/2024 10:14 AM CDT Temperature 35.9 C (96.7 F) 04/11/2024 11:08 AM MANAGER TRADING Respiratory Rate 20 01/08/2024 2:52 PM CDT Oxygen Saturation 97% 10/04/2024 10:14 AM CDT 2L O2 Inhaled Oxygen Concentration - - Weight 78.5 kg (173 lb) 10/04/2024 10:14 AM CDT Height 172.7 cm (5' 8) 10/04/2024 10:14 AM CDT Body Mass Index 26.3 10/04/2024 10:14 AM CDT Plan of Treatment Health Maintenance Due Date Last Done Comments Hepatitis C Screening 1945 DTaP/Tdap/Td Vaccine (1 - Tdap) 02/05/1956 Hepatitis B Screening 1963 Pneumococcal vaccine 65+ (1 of 2 - PCV) 02/05/1964 Zoster Vaccine (1 of 2) 1995 Well Visit 65+ 2010 Depression Screening 04/24/2024 04/24/2023 Fall Risk Assessment 09/10/2024 09/11/2023, 02/24/20 Influenza Vaccine (Season Ended) 2025 03/13/2020, 03/09/2019, 03/26/2018, Additional history exists Abdominal Aortic Aneurysm (A AA) Screen Completed 03/27/2023 Medical Devices Implanted Type Area Certified Medical Transcriptionist Device Identifier Shelf Expiration Date Model / Serial / Lot barter.li Lea Angio-Seal Vip 6fr Closere Device [id number] - [id number] - [id number] Implanted:Qty: 1 on 05/04/2023 by Pop Yoon MD at [facility] Right: Common Femoral Artery finalsite 11/03/2023 [id number] / [id number] / [id number] [employer] 2088tc/58 Tendril Sts 6fr 58cm Is-1 Connector Active Fixation Bipolar Soft - [id number] - [id number] Implanted:Qty: 1 on 10/04/2018 by Hussein Martin MD at [facility] Lead [employer] [id number] 06/24/2021 2088TC/ 58 / [id number] / [employer] 1458q/86 Quartet 5fr 65dme07sf 4 Electrode Is-4 Connector Steerable Tip - [id number] - [id number] Implanted:Qty: 1 on 10/04/2018 by Hussein Martin MD at [facility] Lead [employer] [id number] 08/22/2021 1458Q/8 6 / [id number] / Viramontes V[employer] [id number] Pacemaker Quadra Allure Mp Rf Live Ammunition Inspector-P Mri - [id number] - [id number] Implanted:Qty: 1 on 10/04/2018 by Hussein Martin MD at [facility] Pacemaker [employer] [id number] 03/24/2020 [id number] / [id number] / Orellana Lif[employer]iences Valve Heart 26mm Colette 3 Transcatheter [id number] - [id number] - [id number] Implanted:Qty: 1 on 05/04/2023 by Pop Yoon MD at [facility] Prosthetic Valve N/A: Aortic Valve [employer] 01/12/2026 [id number] / [id number] / Medtronic Inc Visi-Pro 8mm 17mm 135cm Radiopaque Balloon Expand Radial Strength - [id number] Implanted:Qty: 1 on 06/14/[address] MD at [facility] Stent Left: Subclavian Medtronic Inc 01/02/2024 PXB35-0 8-17-13 5 / / [id number] [employer] Device Clsr Perclose Prostyle Sut-Mediatd Closure-Repair Sys 07814-69 - [id number] - [id number] Implanted:Qty: 1 on 05/04/2023 by Pop Yoon MD at [facility] Vascular Closure Device Left: Common Femoral Artery [employer] 09/21/2024 07676-7 3 / [id number] / [id number] Access Closure Inc Device 10ml 5fr Closure Mynx Control 2 Mode Balloon Catheter [id number] - [id number] Implanted:Qty: 1 on 03/20/[address] MD at [facility] Access Closure Inc 04/23/2024 [id number] / / [id number] Cardiva Medical Inc Device Closure Vascade Od5 Fr Femoral Artery [id number] - [id number] Implanted:Qty: 1 on 08/27/[address] MD at [facility] [employer] Inc 04/07/2025 700-500 DX-05U / / [id number] Medtronic Inc Everflex Entrust 6mm 40mm 120cm Self Expand Triaxial Low Profile - [id number] Implanted:Qty: 1 on 09/01/2023 by Cristobal James MD at [facility] Medtronic Inc 07/13/2025 EVD35-0 6-040-1 20 / / [id number] Cardiva Medical Inc Device Vascular Closure Femoral Artery Bioabsorbable Dual Method Vascade 6-7fr Collagen [id number] - [id number] Implanted:Qty: 1 on 09/01/2023 by Cristobal James MD at [facility] CardiGold Capital Medical Inc 04/22/2025 700-580 I-05U / / [id number] Vir[employer] V[employer] Supera 5.5mm 6fr 150mm 120cm Otw Self Expandable Closed End Braid E-51-782-120-P6 - [id number] Implanted:Qty: 1 on 09/01/2023 by Cristobal James MD at [facility] [employer] 04/23/2024 S-55-15 0-120-P 6 / / [id number] [employer] Supera 6mm 6fr 100mm 120cm Peripheral Stent Vascular P-32-246-120-P6 - [id number] Implanted:Qty: 1 on 09/01/2023 by Cristobal James MD at [facility] [employer] 05/24/2024 S-60-10 0-120-P 6 / / [id number] Medtronic Inc Everflex Entrust 6mm 150mm 120cm Self Expand Triaxial Low Profile - [id number] Implanted:Qty: 1 on 09/01/2023 by Cristobal James MD at [facility] [employer] Inc 11/20/2025 EVD35-0 6-150-1 20 / / [id number] Procedures Procedure Name Priority Date/Time Associated Diagnosis Comments DEVICE CHECK - REMOTE Routine 09/20/2024 9:44 AM CDT Persistent atrial fibrillation (HCC) SSS (sick sinus syndrome) (HCC) TRANSTHORACIC ECHO (TTE) COMPLETE W DOPPLER/CF WO CONTRAST Routine 09/05/2024 11:27 AM CDT S/P TAVR (transcatheter aortic valve replacement) Coronary arteriosclerosis in picayune artery CTA ABDOMINAL AORTA AND BILATERAL ILIOFEMORAL RUNOFF IP Routine 03/27/2023 11:58 AM CDT from Last 3 Months or Most Recently Relevant to Health Maintenance Results * DEVICE CHECK - REMOTE (09/20/2024 9:44 AM CDT) Anatomical Region Laterality Modality Other Narrative 10/07/2024 1:[address] [employer] DDD Quadra Allure [id number] BI-V Pacemaker implanted for SSS/Afib on 10/04/18-Mario [...] report. Office pacemaker follow up: 9 months [place] remote f/u 12/20/24. Eugene Calix RN us Jory Bello MD CV [facility] Final Result * TRANSTHORACIC ECHO (TTE) COMPLETE W DOPPLER/CF WO CONTRAST (09/05/2024 11:27 AM CDT) Anatomical Region Laterality Modality Ultrasound 09/05/2024 10:2 6 AM CDT Narrative 09/05/2024 11:32 AM CDT [facility] Cardiology [address] [facility] [address] [address] [address] [facility] [address], [place] [address] P:[phone] P:[phone] Echocardiographic Report Patient Name: JAIR PENA L : 1945 Study Date: 09/05/2024 10:26:46 AM Gender: M Tech: Location: [facility] Provider: JORY BELLO Height(Cm): 173 BSA: 1.88 Weight(Kg): 73.5 Heart Rate: 60 BP: 170 / 80 Quality: Good Order Provider: JORY BELLO PROCEDURES: Echocardiographic Report: Transthoracic echocardiogram with complete 2D, M-Mode, and color Doppler examination. With Strain Analysis. INDICATIONS: S/P TAVR and I25.10 Atherosclerotic heart disease of picayune coronary artery without angina pectoris. MEASUREMENTS: 2D/MM [...] FINDINGS: Interpretation Site: Exam was interpreted at [facility]. Left Ventricle: Normal left ventricular size. [...] regurgitation. Electronically Signed By: Dr. Ishaan Valdovinos [facility] 09/05/2024 11:30:58 AM CDT Procedure Note Ishaan Valdovinos MD - 09/05/2024 [facility] Cardiology [address], [place] [address] [address], [place] [address] P:[phone] P:[phone] Echocardiographic Report Patient Name: JAIR PENA L : 1945 Study Date: 09/05/2024 10:26:46 AM Gender: M Tech: Location: [facility] Provider: JORY BELLO Height(Cm): 173 BSA: 1.88 Weight(Kg): 73.5 Heart Rate: 60 BP: 170 / 80 Quality: Good Order Provider: JOYR BELLO PROCEDURES: Echocardiographic Report: Transthoracic echocardiogram with complete 2D, M-Mode, and color Dopplerexamination. With Strain Analysis. INDICATIONS: S/P TAVR and I25.10 Atherosclerotic heart disease of picayune coronaryartery without angina pectoris. MEASUREMENTS: 2D/MM Value [...] FINDINGS: Interpretation Site: Exam was interpreted at [facility]. Left Ventricle: Normal left ventricular size. [...] regurgitation. Electronically Signed By: Dr. Ishaan Valdovinos [facility] 09/05/2024 11:30:58 AM CDT us Jory Bello MD CV ECHO PROCEDURES Final Result * CTA Abdominal Aorta And Bilateral Iliofemoral Runoff (03/27/2023 11:58 AM CDT) Anatomical Region Laterality Modality Body Bilateral Computed Tomogra phy 03/27/2023 5:18 PM CDT Impressions 03/30/2023 11:28 AM MANAGER TRADING Atherosclerotic nonaneurysmal aorta . Calcified plaque with [...] Petra Fleming M.D. Narrative 03/30/2023 11:28 AM MANAGER TRADING EXAMINATION: CT ANGIOGRAPHY OF THE ABDOMEN/PELVIS/LOWER EXTREMITIES [...] stenosis noted. Right popliteal artery: Proximal reconstitution [id number]-dwtr is present with calcified plaque and moderate to severe distal stenosis. Left popliteal artery: Proximal reconstitution [id number]-[id number] is noted with calcified plaque and moderate [...] stenosis noted. Right popliteal artery: Proximal reconstitution [id number]-qma-uvbe is present with calcified plaque and moderate to severe distal stenosis. Left popliteal artery: Proximal reconstitution mrrdz-ykr-sadh is noted with calcified plaque and moderate [...] diverticulosis. Electronically signed by: Petra Fleming M.D. [facility] PROCEDURES Final Result from Last 3 Months or Most Recently Relevant to Health Maintenance Insurance MEDICARE TE[employer]STERS MEDICARE TRUST MEDICARE TEAMSTERS MEDICARE TRUST MEDICARE TEAMSTERS MEDICARE TRUST Advance Directives For more information, please contact: [phone] Documents on File Type Date Recorded Patient Employment Manager Expl anation ADVANCE DIRECTIVE 05/23/2023 2:26 AM [...] 3:33 PM 03/30/2023 8:36 PM Care Teams Maintenance Carpenter Relationship Specialty Start Date End Date Timo Coronado DO PCP - General 08/22/16 Miscellaneous, Not In File 05/08/23
[2024-10-30 08:14] LABS: INR 1.5; Prothrombin Time 17.9 Seconds (11.1-14.7)
--- NOTE | 2024-10-30 08:14 | ED.GENADULT ---
HPI - General Adult General Chief complaint: Shortness of Breath/Dyspnea Stated complaint: DYSPNEA History of Present Illness HPI narrative: Patient is a 79-year-old male who presents ER with shortness of breath. History of CHF and COPD. Wears 2 L of oxygen chronically. Hypoxic in the 80s on home O2 so placed on non-rebreather and patient is feeling better. No new leg swelling. He does have orthopnea. No fevers or chills or sweats. No productive cough. He is without chest pain or chest pressure. Related Data Home Medications ?Medication ?Instructions ?Recorded ?Confirmed ?Last Taken ?Type finasteride 5 mg tablet 5 mg PO DAILY 06/14/19 10/30/24 Unknown History furosemide 40 mg tablet (Lasix) 40 mg PO QAM 06/14/19 10/30/24 10/29/24 History losartan 50 mg tablet 50 mg PO DAILY 06/14/19 10/30/24 10/30/24 History metoprolol tartrate 25 mg tablet 25 mg PO BID 11/08/19 10/30/24 10/30/24 History amlodipine 10 mg tablet 5 mg PO DAILY 11/04/21 10/30/24 10/30/24 History clopidogrel 75 mg tablet 75 mg PO DAILY 11/04/21 10/30/24 10/30/24 History apixaban 5 mg tablet (Eliquis) 5 mg PO BID 06/10/23 10/30/24 10/30/24 History atorvastatin 20 mg tablet 40 mg PO DAILY 03/23/24 10/30/24 10/30/24 History Allergies Allergy/AdvReac Type Severity Reaction Status Date / Time No Known Drug Allergies Allergy Unknown na Verified 10/30/24 07:26 Review of Systems Review of Systems: All systems reviewed & are unremarkable except as noted in HPI and below Constitutional: Constitutional: Reports no additional constitutional complaints Cardiovascular: Cardiovascular: Reports no additional cardiovascular complaints Respiratory: Respiratory: Reports no additional respiratory complaints Gastrointestinal: Gastrointestinal: Reports no additional gastrointestinal complaints Neurologic: Reports system reviewed and no additional complaints, except as documented [facility] Past Medical History Medical History Amputation toe Hypertension CKD (chronic kidney disease) stage 3, GFR 30-59 ml/min Coronary artery disease Elevated liver enzymes CHF (congestive heart failure) Atrial fibrillation COPD (chronic obstructive pulmonary disease) Surgical History Surgical History H/O aortic valve replacement Family History Family History Father CAD (coronary artery disease) Hypertension Parkinson disease Mother CAD (coronary artery disease) Hypertension Sibling CAD (coronary artery disease) Hypertension Mother Hypertension Acute myocardial infarction Father Family history of coronary artery disease Social History Social History Smoking packs per day: 1 Smoking cigarettes per day: 20.0 Years smoked: 35 Smoking pack-years: 35.00 Smoking status: Former smoker Alcohol intake: current Substance use type: does not use Do You Feel Safe in your Home?: Yes Lack of Transportation: No Lack of Food: Never True Current Housing: I Have Housing Concerned About Future Housing: No Difficulty Paying Gas/Electric Bills: No Difficulty Paying for Meds: No Currently Unemployed: No Education: High School Diploma/GED Difficulty w/ Childcare or Family Care: No Spiritual care concerns: No Exam Narrative: GENERAL: Well-appearing, well-nourished, and in no acute distress. HEAD: Normocephalic, atraumatic. ENT: Mucous membranes moist. NECK: Supple. CHEST: Mild bibasilar crackles. No respiratory distress. HEART: Regular rate and rhythm. Normal peripheral pulses. ABDOMEN: Soft, nontender, nondistended. EXTREMITIES: Normal range of motion. No edema. SKIN: Warm, dry, no rash. NEURO: Alert and oriented x3. PSYCH: Normal mood and affect. Course Course Emergency Course: Admit to hospitalist service. Diuresis for fluid overload. Patient of diagnosis and treatment plan. Vital Signs Vital signs: Vital Signs Temperature 98.0 F 10/30/24 07:17 Pulse Rate 81 10/30/24 07:17 Respiratory Rate 27 H 10/30/24 07:17 Blood Pressure 183/95 H 10/30/24 07:17 Pulse Oximetry 100 10/30/24 07:17 Oxygen Delivery Non-Rebreather Mask 10/30/24 07:17 Oxygen Flow Rate 15 10/30/24 07:17 Temperature 97.4 F L 10/30/24 13:42 Pulse Rate 60 10/30/24 16:35 Respiratory Rate 20 10/30/24 16:35 Blood Pressure 152/54 H 10/30/24 13:42 Pulse Oximetry 95 10/30/24 16:35 Oxygen Delivery Nasal Cannula 10/30/24 16:35 Oxygen Flow Rate 5 10/30/24 16:35 Medical Decision Making Vital Signs Vital Signs: Vital Signs Temperature 98.0 F 10/30/24 07:17 Pulse Rate 81 10/30/24 07:17 Respiratory Rate 27 H 10/30/24 07:17 Blood Pressure 183/95 H 10/30/24 07:17 Pulse Oximetry 100 10/30/24 07:17 Oxygen Delivery Non-Rebreather Mask 10/30/24 07:17 Oxygen Flow Rate 15 10/30/24 07:17 Temperature 97.4 F L 10/30/24 13:42 Pulse Rate 60 10/30/24 16:35 Respiratory Rate 20 10/30/24 16:35 Blood Pressure 152/54 H 10/30/24 13:42 Pulse Oximetry 95 10/30/24 16:35 Oxygen Delivery Nasal Cannula 10/30/24 16:35 Oxygen Flow Rate 5 10/30/24 16:35 Lab Data 10/30/24 07:32 10/30/24 07:32 Labs: Lab Results 10/30/24 10/30/24 Range/Units 07:32 07:38 WBC 9.5 (4.5-10.0) K/mm3 RBC 4.43 L (4.6-6.20) M/mm3 Hgb 13.0 L (14.0-18.0) g/dL Hct 40.9 L (42.0-52.0) % MCV 92.3 (80-100) fl MCH 29.3 (26-34) pg MCHC 31.8 L (32-36) g/dl RDW 14.8 H (11.5-14.5) % Plt Count 192 (150-375) k/mm3 MPV 10.4 (7.4-10.4) fl Immature Gran % (Auto) 0.4 (0-0.5) % Neut % (Auto) 79.7 H (45.5-73.1) % Lymph % (Auto) 9.7 L (18.3-44.2) % Hanson % (Auto) 9.3 H (2.6-8.5) % Eos % (Auto) 0.7 (0-4.4) % Baso % (Auto) 0.2 (0.2-1.2) % Lymph # (Auto) 0.92 (0.9-3.2) K/mm3 Hanson # (Auto) 0.9 H (0.1-0.6) K/mm3 Eos # (Auto) 0.1 (0-0.3) K/mm3 Baso # (Auto) 0.0 (0.0-0.1) K/mm3 Abs Immat Gran (auto) 0.04 H (0.00-0.031) K/mm3 Absolute Neuts (auto) 7.6 H (1.3-6.7) K/mm3 Absolute Nucleated RBC 0.000 (0.0-0.012) K/mm3 Nucleated RBC % 0.0 (0.0-0.2) % PT 17.9 H (11.1-14.7) Seconds INR 1.5 APTT 44.8 H (22.3-36.8) Seconds Sodium 139 (137-145) mmol/L Potassium 3.9 (3.4-5.0) mmol/L Chloride 104 (98-107) mmol/L Carbon Dioxide 28 (22-30) mmol/L Anion Gap 7 (4-12) mmol/L BUN 17 (9-20) mg/dL Creatinine 1.16 (0.7-1.3) mg/dL Estim Creat Clear Calc 50 ml/min Estimated GFR > 60 (59 - ) Glucose 102 (65-110) mg/dL Calcium 9.4 (8.4-10.2) mg/dL Total Bilirubin 1.7 H (0.2-1.3) mg/dL AST 35 (17-59) U/L ALT 26 (6-50) U/L Alkaline Phosphatase 130 H (38-126) U/L NT-Pro-B Natriuret Pep 3470 H (19.9-100) pg/mL Total Protein 7.5 (6.3-8.2) g/dL Albumin 3.9 (3.5-5.1) g/dL Urine Color Yellow (Yellow) Urine Appearance Clear (Clear) Urine pH 6.5 (5.0-9.0) Ur Specific [place] 1.018 (1.001-1.035) Urine Protein 3+ H (Negative) mg/dL Urine Glucose (UA) Negative (Negative) mg/dL Urine Ketones Trace H (Negative) mg/dL Ur Blood (Man) 2+ H (Negative) Urine Nitrate Negative (Negative) Urine Bilirubin Negative (Negative) Urine Urobilinogen 1.0 (<2.0) mg/dL Leukocyte Esterase Rfl Negative (Negative) BETH/UL Urine RBC 21-50 H (0-2) /hpf Urine WBC 0-5 (0-3) /hpf Ur Squamous Epith Cells None seen (Few) /hpf Urine Bacteria None seen /hpf Urine Casts 0-2 Imaging Data Radiologist's impression: ITS Impressions Chest X-Ray 10/30/24 07:47 Impression: Small bilateral pleural effusions with mild pulmonary edema pattern. Prior cardiac surgery and pacemaker device, as above. ECG Data EKG #1: ECG completion date: 10/30/24 ECG completion time: 07:21 EKG Interpretation: normal rate (60), widened QRS and other (ventricular pacemaker) Discharge Plan Discharge Clinical Impression: CHF exacerbation Qualifiers: Heart failure type: combined systolic and diastolic Qualified Code(s): I50.43 - Acute on chronic combined systolic (congestive) and diastolic (congestive) heart failure Patient Disposition: Still a Patient Condition: Stable
--- NOTE | 2024-10-30 08:19 | ECG_ITS ---
Test Date: 2024-10-30 07:21:52 Measurements Intervals [place] Rate: 60 P: 0 WA: 0 QRS: 127 QRSD: 157 T: -17 QT: 465 QTc: 465 Interpretive Statements ELECTRONIC VENTRICULAR PACEMAKER NO FURTHER INTERPRETATION IS POSSIBLE ATYPICAL ECG No previous ECG available for comparison Electronically Signed On 10-30-2024 08:26:32 CDT by Shabbir Viramontes D.O.
[2024-10-30 08:22] LABS: Alanine Aminotransferase 26 U/L (6-50); Albumin Level 3.9 g/dL (3.5-5.1); Alkaline Phosphatase 130 U/L (38-126); Anion Gap 7 mmol/L (4-12); Aspartate Amino Transferase 35 U/L (17-59); Bilirubin,Total 1.7 mg/dL (0.2-1.3); Blood Urea Nitrogen 17 mg/dL (9-20); Calcium 9.4 mg/dL (8.4-10.2); Carbon Dioxide 28 mmol/L (22-30); Chloride 104 mmol/L (98-107); Estimated CRCL calculation 50 ml/min; Estimated Glomerular Filt Rate > 60; Glucose 102 mg/dL (65-110); Potassium 3.9 mmol/L (3.4-5.0); Sodium 139 mmol/L (137-145); Total Protein 7.5 g/dL (6.3-8.2)
[2024-10-30 08:23] LABS: Add Urine Microscopic? YES; Appearance Urine Clear (Clear); Bacteria Urine None Seen /hpf; Bilirubin Urine Negative (Negative); Blood Urine 2+ (Negative); Color Urine Yellow (Yellow); Glucose Urine UA Negative (Negative); Ketones Urine Trace mg/dL (Negative); Leukocyte Esterase Ur Negative LEU/UL (Negative); Nitrate Urine Negative (Negative); Non Pathogenic Casts 0-2; Protein Urine 3+ mg/dL (Negative); RBC Urine 21-50 /hpf (0-2); Specific Grav Ur 1.018 (1.001-1.035); Squamous Epithelial Cell Urine None Seen /hpf (Few); WBC Urine 0-5 /hpf (0-3); pH Urine 6.5 (5.0-9.0)
[2024-10-30 08:30] LABS: NT Pro B Type Natriuretic Pept 3470 pg/mL (19.9-100)
[2024-10-30] MEDS: FUROSEMIDE INJ 40 MG/4 ML VIAL IV PUSH ×2 (08:55→20:31)
[2024-10-30 09:07] LABS: Partial Thromboplastin Time 44.8 Seconds (22.3-36.8)
--- NOTE | 2024-10-30 10:46 | PC.NURSE ---
Pt urinated 500 ml clear yellow urine.
--- NOTE | 2024-10-30 12:42 | ADMGEN ---
This patient, [place] Sydney Sylvia Jr., was admitted to [facility] Surg Room 317-02 at 1123. Patient/family oriented to hospital policies and general routines including ID bracelet, bed and alarms, visiting hours, pain management, procedures, bathroom and other care routines, personal items, smoking policy, room service/diet, and visiting hours. Information on how to activate the Rapid Response Team has been discussed. Patient/Family are encouraged to report perceived risks to care and to ask questions if they do not understand what they are told or what they should do.
--- NOTE | 2024-10-30 13:07 | PM.IMHP ---
H&P: HPI History of Present Illness Date/Time: 10/30/24 17:45 Chief Complaint: Increased dyspnea Narrative: This is a 79 year old male patient with a history of CHF, COPD, home oxygen use at 2 LPM, HTN, atrial fibrillation, CABG x 5 vessels, CKD, Pulmonary Hypertension, CAD and MAGDALENE with use of BiPAP when sleeping. He is admitted to the hospital with respiratory failure with hypoxia and presumed CHF exacerbation. Patient states usually he can walk for a short while then rest and his dyspnea will go away but for the past 3 days this has not been the case. He has had to increase his oxygen from 2 LPM to 5 LPM and even moving his arms will cause him considerable dyspnea. He reports not being able to walk or even talk as much as usual due to worsening shortness of breath. EMS increased oxygen to 15 LPM via non-rebreather which ER was able to wean to 5 LPM via cannula. Patient was given IV furosemide in ER after CXR appeared to have pulmonary edema. Once patient arrived to the floor he was weaned to 3 LPM which maintained oxygen saturations but patient was getting more dyspneic so it had to be increased back to 5 LPM. On my evaluation patient was in respiratory distress with pursed lip breathing, crackles and diminished lung sounds. ABG obtained and patient was moved to IMU to be placed on BiPAP continuously. Patient reports the past 3 days his breathing has been getting worse each day. He is DNR/DNI status per patient's wishes but he is ok with BiPAP and other selective measures. Review of Systems Review of Systems: All systems reviewed & are unremarkable except as noted in HPI and below [facility] Past Medical History Medical History Amputation toe Hypertension CKD (chronic kidney disease) stage 3, GFR 30-59 ml/min Coronary artery disease Elevated liver enzymes CHF (congestive heart failure) Atrial fibrillation COPD (chronic obstructive pulmonary disease) Surgical History Surgical History H/O aortic valve replacement Family History Family History Father CAD (coronary artery disease) Hypertension Parkinson disease Mother CAD (coronary artery disease) Hypertension Sibling CAD (coronary artery disease) Hypertension Mother Hypertension Acute myocardial infarction Father Family history of coronary artery disease Social History Social History Smoking packs per day: 1 Smoking cigarettes per day: 20.0 Years smoked: 35 Smoking pack-years: 35.00 Smoking status: Former smoker Alcohol intake: current Substance use type: does not use Do You Feel Safe in your Home?: Yes Lack of Transportation: No Lack of Food: Never True Current Housing: I Have Housing Concerned About Future Housing: No Difficulty Paying Gas/Electric Bills: No Difficulty Paying for Meds: No Currently Unemployed: No Education: High School Diploma/GED Difficulty w/ Childcare or Family Care: No Spiritual care concerns: No Meds Home Medications and Allergies Home Medications ?Medication ?Instructions ?Recorded ?Confirmed ?Type finasteride 5 mg tablet 5 mg PO DAILY 06/14/19 10/30/24 History furosemide 40 mg tablet (Lasix) 40 mg PO QAM 06/14/19 10/30/24 History losartan 50 mg tablet 50 mg PO DAILY 06/14/19 10/30/24 History metoprolol tartrate 25 mg tablet 25 mg PO BID 11/08/19 10/30/24 History amlodipine 10 mg tablet 5 mg PO DAILY 11/04/21 10/30/24 History clopidogrel 75 mg tablet 75 mg PO DAILY 11/04/21 10/30/24 History apixaban 5 mg tablet (Eliquis) 5 mg PO BID 06/10/23 10/30/24 History Trelegy Ellipta 100 mcg-62.5 1 inh inhalation DAILY #60 ea 03/23/24 10/30/24 Rx mcg-25 mcg powder for inhalation (sacdzbbzesv-nvcivllrc-kglfvsbu) atorvastatin 20 mg tablet 40 mg PO DAILY 03/23/24 10/30/24 History fluticasone fur. 100 mcg-umeclid 100-62.5-25 mcg Blister With 08/23/24 10/30/24 Sample 62.5 mcg-vilant 25 mcg Device#4 Samples inhalat.powder (Trelegy Ellipta) albuterol sulfate 90 mcg/actuation 1 - 2 inh inhalation Q4-6H PRN 10/04/24 10/30/24 Rx aerosol inhaler shortness of breath or wheezing #8.5 grams Allergies Allergy/AdvReac Type Severity Reaction Status Date / Time No Known Drug Allergies Allergy Unknown na Verified 10/30/24 07:26 Vital Signs Vital Signs - 24 hr 10/30/24 07:17 10/30/24 07:23 10/30/24 07:23 Temperature 36.7 C Pulse Rate 81 68 Respiratory Rate 27 H Blood Pressure 183/95 H Pulse Oximetry 100 100 Oxygen Delivery Non-Rebreather Mask Non-Rebreather Mask Oxygen Flow Rate 15 15 10/30/24 09:02 10/30/24 10:46 10/30/24 10:47 Temperature Pulse Rate 75 67 Respiratory Rate 21 H 19 Blood Pressure 146/78 H 156/66 H Pulse Oximetry 100 94 95 Oxygen Delivery Nasal Cannula Oxygen Flow Rate 3 Exam Narrative: GENERAL: Appears older than stated age, labored breathing noted, only able to speak 2-4 words at a time HEAD: Normocephalic, atraumatic. ENT: Mucous membranes moist. NECK: Supple. CHEST: Diminished with bibasilar crackles. Labored respirations, pursed lip exhalation, tachypnea, oxygen at 5LPM [place] HEART: Regular rate and rhythm. Normal peripheral pulses. ABDOMEN: Soft, nontender, nondistended. EXTREMITIES: Normal range of motion. Mild lower extremity edema noted bilateral SKIN: Warm, dry, no rash. NEURO: Alert and oriented x3. H&P: Results Labs Labs: Short CBC 10/30/24 Range/Units 07:32 WBC 9.5 (4.5-10.0) K/mm3 Hgb 13.0 L (14.0-18.0) g/dL Hct 40.9 L (42.0-52.0) % Plt Count 192 (150-375) k/mm3 BMP 10/30/24 07:32 Sodium 139 Potassium 3.9 Chloride 104 Carbon Dioxide 28 BUN 17 Creatinine 1.16 Glucose 102 Calcium 9.4 Liver Function 10/30/24 Range/Units 07:32 Total Bilirubin 1.7 H (0.2-1.3) mg/dL AST 35 (17-59) U/L ALT 26 (6-50) U/L Alkaline Phosphatase 130 H (38-126) U/L Albumin 3.9 (3.5-5.1) g/dL Urine 10/30/24 Range/Units 07:38 Urine Color Yellow (Yellow) Urine Appearance Clear (Clear) Urine pH 6.5 (5.0-9.0) Ur Specific [place] 1.018 (1.001-1.035) Urine Protein 3+ H (Negative) mg/dL Urine Glucose (UA) Negative (Negative) mg/dL Pulse Oximetry SpO2 results: 93-94% on 3 LPM Attestation: I personally reviewed and interpreted this pulse oximetry as follows: Interpretation: Wears 2 LPM at baseline, continues to require additional oxygenation ECG Attestation: I personally reviewed and interpreted this ECG as follows: ECG completion date: 10/30/24 ECG completion time: 07:21 Prior ECG tracings: not available for review Interpretation: Ventricular paced rhythm, rate of 60, QRSd 157, QTC 465, QRS axis 127 Imaging Chest x-ray: Radiologist's impression: Portable chest x-ray Comparison: 05/13/2019 Clinical History: Shortness of breath Findings: Probable small bilateral pleural effusions with moderate pulmonary edema pattern. Cardiomediastinal silhouette is stable, status post aortic valve replacement and probable CABG with pacemaker device. Bones and soft tissues are unremarkable. Impression: Small bilateral pleural effusions with mild pulmonary edema pattern. Prior cardiac surgery and pacemaker device, as above. Reviewed, dictated and finalized at location M. Assessment and Plan Assessment and plan (1) CHF exacerbation: Qualifiers: Heart failure type: combined systolic and diastolic Qualified Code(s): I50.43 - Acute on chronic combined systolic (congestive) and diastolic (congestive) heart failure Code(s): I50.9 - Heart failure, unspecified Status: Acute Assessment and Plan: -Diminished lung sounds with bibasilar crackles -Increased respiratory effort with tachypnea, diminished -IV Lasix 40 mg BID -Nitroglycerin ointment 1 inch placed one time to vasodilate and offload pulmonary edema -BiPAP initiated and patient transferred to IMU -Echocardiogram ordered -Last Echo on file from 2020 shows LV EF normal with abnormal wall motion and abnormal diastolic phase with increased pulmonary artery pressures -Cardiology consulted as patient would likely benefit from increased goal directed treatments (2) Acute and chronic respiratory failure with hypoxia: Code(s): J96.21 - Acute and chronic respiratory failure with hypoxia Status: Acute Assessment and Plan: -Wears 2 LPM via cannula at home, currently labored breathing on 5 LPM via cannula -Upgrade to IMU status and apply BiPap -ABG ordered (3) Atrial fibrillation: Qualifiers: Atrial fibrillation type: paroxysmal Qualified Code(s): I48.0 - Paroxysmal atrial fibrillation Code(s): I48.91 - Unspecified atrial fibrillation Status: Chronic Assessment and Plan: -Paced rhythm note on ER EKG -Eliquis is a home medication (4) MAGDALENE (obstructive sleep apnea): Code(s): G47.33 - Obstructive sleep apnea (adult) (pediatric) Status: Chronic Assessment and Plan: -Uses BiPAP at night for sleep -Pulmonology note shows average use 12 hours a night usually in 2-3 hour increments with a lot of nocturia reported -AutoPAP to be available when patient not in IMU on continuous BiPAP (5) COPD (chronic obstructive pulmonary disease): Qualifiers: COPD type: unspecified COPD Qualified Code(s): J44.9 - Chronic obstructive pulmonary disease, unspecified Code(s): J44.9 - Chronic obstructive pulmonary disease, unspecified Status: Chronic Assessment and Plan: -ABG with mildly decreased pCO2 due to tachypnea -Home oxygen 2 LPM -Wean oxygen as tolerated, hopefully with increased diuresis it can lower oxygen demand as well (6) Hypertension: Qualifiers: Hypertension type: primary hypertension Qualified Code(s): I10 - Essential (primary) hypertension Code(s): I10 - Essential (primary) hypertension Status: Chronic Assessment and Plan: -Blood pressure reviewed, continue home medications (7) CKD (chronic kidney disease) stage 3, GFR 30-59 ml/min: Code(s): N18.3 - Chronic kidney disease, stage 3 (moderate) Status: Chronic Assessment and Plan: -Renal function stable currently, monitor with increased diuresis (8) Pulmonary hypertension: Code(s): I27.20 - Pulmonary hypertension, unspecified Status: Chronic Assessment and Plan: -Known history which also exacerbates dyspnea (9) Antiplatelet or antithrombotic long-term use: Code(s): Z79.02 - tank terminal gauger (current) use of antithrombotics/antiplatelets Status: Chronic Assessment and Plan: -Takes clopidogrel and apixaban, history of CABG x 5 vessels (10) S/P coronary artery bypass graft x 5: Code(s): Z95.1 - Presence of aortocoronary bypass graft Status: Chronic Assessment and Plan: -See above, continue clopidogrel and apixaban Plan -Transfer to IMU for continuous BiPAP to ease work of breathing pending additional diuresis Quality VTE Prophylaxis VTE prophylaxis: pharmacologic ordered (Eliquis) Total time spent on this patient 115 minutes including critical care time as listed below Due to a high probability of clinically significant, life threatening deterioration, the patient required my highest level of preparedness to intervene emergently and I personally spent this critical care time directly and personally managing the patient. This critical care time included obtaining a history; examining the patient; pulse oximetry; ordering and review of studies; arranging urgent treatment with development of a management plan; evaluation of patient's response to treatment; frequent reassessment; and discussions with other providers. It was exclusive of separately billable procedures and treating other patients and teaching time. Please see Assessment and Plan section and the rest of the note for further information on patient assessment and treatment. Critical Care time: 35 minutes Hospitalist MIPS Advance Care Plan I have confirmed that the patient's Advanced Care Plan is present, code status is documented, or surrogate decision maker is listed in patient medical record.: Yes Medication Reconciliation I have utilized all available resources to obtain, update and review the patients current medications (includes all prescriptions, OTC, herbals, cannabis, and nutritional supplements).: Yes
--- NOTE | 2024-10-30 14:53 | PC.NURSE ---
Pt wishes to be a DNR. All choices discussed and patient states he would not like any life saving measures in the event of his heart spontaneously stopping. Discussed with Dr. Negrete who is agreeable with patients wishes; code status updated. POLST to follow.
[2024-10-30] MEDS: ALBUTEROL SULFATE (*SP) AEROSOL 1 PUFF 2 PUFF INHALATION (16:32)
[2024-10-30] MEDS: NITROGLYCERIN OINTMENT 1 INCH DOSE TRANSDERM (18:03)
[2024-10-30] MEDS: MORPHINE SULFATE (*CRX) 2 MG/ML INJ IV PUSH (18:06)
[2024-10-30 18:22] LABS: Alveolar/Arterial O2 Gradient 190.2 mmHg; Base Excess ABG 0.5 mEq/l (+/-2.0); Fractional Inspired Oxygen 40 %; HCO3 ABG 22.8 mEq/l (22.0-26.0); Oxygen Saturation ABG 93.4 % (95.0-100.0); Oxyhemoglobin 91.1 % THb (90.0-100.0); PCO2 ABG 30.1 mmHg (35.0-45.0); PO2 ABG 60.4 mmHg (80.0-100.0); PO2 FiO2 Ratio Arterial Blood 1.51 %; Total Hemoglobin 13.3 g/dL (12.0-18.0); pH ABG 7.498 (7.350-7.450)
[2024-10-30 18:23] LABS: Site Drawn RIGHT BRACHIAL
[2024-10-30 18:24] LABS: Device NASAL CANNULA
--- NOTE | 2024-10-30 18:57 | PC.NURSE ---
Patient transferred to IMU at 1845. Handoff completed. No further questions at this time.
[2024-10-30] MEDS: APIXABAN 5 MG TABLET PO (20:30)
[2024-10-30] MEDS: METOPROLOL TARTRATE 25 MG TABLET PO (20:31)
[2024-10-31] VITALS (21 sets, daily range): BP systolic 132–158; BP diastolic 55–70; PULSE 60–77; RESP 20–36; TEMP 36.3–37.7; O2SAT 92–100
--- NOTE | 2024-10-31 | ECHO_ITS ---
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 Staff Referring Physician: Thierry Tubbs MD Hiv Cts Specialist: Iraida Hayward Attending Provider: Winston Negrete MD Contrast/Agitated Saline Contrast/Ag. Saline: Definity Amount: 2.00 ml Administered By: Iraida Hayward Existing IV Access: Yes IV Access Condition: patent with no signs of infiltration Summary 1. The left ventricle is normal in size with mildly reduced systolic function. There is mild concentric left ventricular hypertrophy. The left ventricular ejection fraction is visually estimated to be 45-50% which is unchanged from previous study. 2. The right ventricle is normal in size and systolic function. 3. There is a well-seated balloon expandable TAVR valve in the aortic position. The Doppler gradients across the valve suggests a normal functioning bioprosthesis. There is no perivalvular leak or intra valvular regurgitation. 4. The mitral valve leaflets are thickened. There is mitral annular calcification. There is no mitral stenosis. There is moderate mitral regurgitation. Due to the eccentric jet, the degree of mitral regurgitation may be underestimated. 5. Normal inferior vena cava with >50% collapse upon inspiration consistent with normal right atrial pressure, 3 mmHg. Left Ventricle The left ventricle is normal in size with mildly reduced systolic function. There is mild concentric left ventricular hypertrophy. The left ventricular ejection fraction is visually estimated to be 45-50% which is unchanged from previous study. Right Ventricle The right ventricle is normal in size and systolic function. Linear artifact in right ventricle suggestive of catheter(s), pacemaker lead(s), or ICD lead(s). Left Atria The left atrium is mildly dilated. Right Atria Linear artifact in the right atrium suggestive of catheter(s), pacemaker lead(s), or ICD lead(s). The right atrium is mildly dilated. Atrial Septum The atrial septum is visually intact. Aortic Valve There is a well-seated balloon expandable TAVR valve in the aortic position. The Doppler gradients across the valve suggests a normal functioning bioprosthesis. There is no perivalvular leak or intra valvular regurgitation. Pulmonic Valve The pulmonic valve is not well visualized. There is moderate pulmonic valve regurgitation. Mitral Valve The mitral valve leaflets are thickened. There is mitral annular calcification. There is no mitral stenosis. There is moderate mitral regurgitation. Due to the eccentric jet, the degree of mitral regurgitation may be underestimated. Tricuspid Valve The tricuspid valve is grossly normal. There is mild tricuspid regurgitation. Pericardium/Pleural Pericardium is normal in appearance with no evidence for significant pericardial effusion. Inferior Vena Cava Normal inferior vena cava with >50% collapse upon inspiration consistent with normal right atrial pressure, 3 mmHg. Aorta The aortic root is not well visualized. Left Ventricular Outflow Tract Name Value Normal LVOT 2D LVOT Diameter 1.6 cm LVOT Doppler LVOT Peak Velocity 152 cm/s LVOT Peak Gradient 9 mmHg LVOT Mean Gradient 6 mmHg LVOT VTI 30 cm LVOT VTI/AV VTI Ratio 0.7 LVOT Stroke Volume 64 ml LVOT CO 3.9 l/min LVOT CI 2.0 l/min/m2 Pulmonic Valve Name Value Normal PV Doppler PV Peak Velocity 107 cm/s PV Peak Gradient 5 mmHg PV Regurgitation Doppler NE Peak End Diastolic Velocity 107 cm/s Mitral Valve Name Value Normal MV Doppler MV Peak Gradient 7 mmHg MV Mean Gradient 2 mmHg MV Area (Cont Eq VTI) 2.1 cm2 MV Regurgitation Doppler MR Peak Gradient 105 mmHg Tricuspid Valve Name Value Normal TV Regurgitation Doppler TR Peak Velocity 321 cm/s TR Peak Gradient 41 mmHg Estimated PAP/RSVP RA Pressure 3 mmHg <=5 PA Systolic Pressure 44 mmHg <36 RV Systolic Pressure 44 mmHg <36 TV Annular TDI TV Lateral Ruth s' Velocity 7.8 cm/s >=9.5 Aortic Valve Name Value Normal AV Doppler AV Peak Velocity 209 cm/s AV Peak Gradient 17 mmHg AV Mean Gradient 9 mmHg AV VTI 41 cm AV Area (Cont Eq VTI) 1.6 cm2 >=3.0 AV Area (Cont Eq [place]) 1.6 cm2 AV DI ([place]) 0.73 AV Regurgitation 2D LVOT Area 2.1 cm2 Ventricles Name Value Normal LV Dimensions 2D/MM IVS Diastolic Thickness (2D) 1.4 cm 0.6-1.0 LVID Diastole (2D) 4.0 cm 4.2-5.8 LVIW Diastolic Thickness (2D) 1.4 cm 0.6-1.0 LVID Systole (2D) 3.2 cm 2.5-4.0 LVOT Diameter 1.6 cm LV Mass (2D Cubed) 216.25 g 88.00-224.00 LV Mass Index (2D Cubed) 109 g/m2 49-115 Relative Wall Thickness (2D) 0.71 <=0.42 LV Fractional Shortening/Ejection Fraction 2D/MM LV Fractional Shortening (2D) 20 % 25-43 LV EF (2D [place]) 42 % LV Diastolic Volume (4C MOD) 140 ml LV EF (4C MOD) 53 % LV Diastolic Volume (2C MOD) 148 ml LV EF (2C MOD) 39 % LV Diastolic Volume (BP MOD) 144 ml 62-150 LV Diastolic Volume Index (BP MOD) 73 ml/m2 34-74 LV Systolic Volume (BP MOD) 76 ml 21-61 LV Systolic Volume Index (BP MOD) 39 ml/m2 11-31 LV EF (BP MOD) 47 % 52-72 LV Diastolic Length (4C) 8.3 cm LV Systolic Length (4C) 7.3 cm LV Stroke Volume (4C MOD) 75 ml Atria Name Value Normal LA Dimensions LA Volume (4C A-L) 65 ml LA Volume (BP A-L) 75 ml RA Dimensions RA Systolic Major [place] Length (4C) 5.4 cm 2.1-2.7 RA Area (4C) 21.8 cm2 <=18.0 Report Signatures
[2024-10-31 04:25] LABS: Basophils Percent Auto 0.3 % (0.2-1.2); Eosinophils Percent Auto 0.5 % (0-4.4); Hematocrit 34.6 % (42.0-52.0); Hemoglobin 11.5 g/dL (14.0-18.0); Immature Granulocyte Absolute 0.03 K/mm3 (0.00-0.031); Immature Granulocyte Percent A 0.3 % (0-0.5); Lymphocytes Absolute Auto 1.14 K/mm3 (0.9-3.2); Lymphocytes Percent Auto 13.3 % (18.3-44.2); Mean Corpuscular HGB Conc 33.2 g/dl (32-36); Mean Corpuscular Hemoglobin 30.7 pg (26-34); Mean Corpuscular Volume 92.5 fl (80-100); Mean Platelet Volume 10.9 fl (7.4-10.4); Monocytes Absolute Auto 1.1 K/mm3 (0.1-0.6); Monocytes Percent Auto 12.9 % (2.6-8.5); Neutrophils Absolute Auto 6.3 K/mm3 (1.3-6.7); Neutrophils Percent Auto 72.7 % (45.5-73.1); Platelet Count Result 171 k/mm3 (150-375); Red Blood Count 3.74 M/mm3 (4.6-6.20); Red Cell Distribution Width 14.6 % (11.5-14.5); White Blood Count 8.6 K/mm3 (4.5-10.0)
[2024-10-31 04:46] LABS: Chloride 103 mmol/L (98-107)
[2024-10-31 04:54] LABS: Alanine Aminotransferase 20 U/L (6-50); Albumin Level 3.2 g/dL (3.5-5.1); Alkaline Phosphatase 100 U/L (38-126); Anion Gap 5 mmol/L (4-12); Aspartate Amino Transferase 27 U/L (17-59); Bilirubin,Total 1.6 mg/dL (0.2-1.3); Blood Urea Nitrogen 17 mg/dL (9-20); Calcium 8.9 mg/dL (8.4-10.2); Carbon Dioxide 29 mmol/L (22-30); Estimated CRCL calculation 45 ml/min; Estimated Glomerular Filt Rate 59; Glucose 98 mg/dL (65-110); Magnesium 1.9 mg/dL (1.6-2.3); Potassium 3.7 mmol/L (3.4-5.0); Sodium 137 mmol/L (137-145); Total Protein 6.3 g/dL (6.3-8.2)
--- NOTE | 2024-10-31 07:02 | P.PNIM_ITS ---
Progress Note: A&P Assessment and Plan (1) CHF exacerbation: Qualifiers: Heart failure type: combined systolic and diastolic Qualified Code(s): I50.43 - Acute on chronic combined systolic (congestive) and diastolic (congestive) heart failure Code(s): I50.9 - Heart failure, unspecified Status: Acute Assessment and Plan: * Diminished lung sounds with bibasilar crackles * Increased respiratory effort with tachypnea, diminished * IV Lasix 40 mg BID * Nitroglycerin ointment 1 inch placed one time to vasodilate and offload pulmonary edema * BiPAP initiated and patient transferred to IMU * Last Echo on file from 2020 shows LV EF normal with abnormal wall motion and abnormal diastolic phase with increased pulmonary artery pressures * Echo 10/31 * EF 40-45%, unchanged from previous * Normal RV size/systolic fxn * TAVR valve in Aortic position - normal functioning * Thickened MV leaflets, no MS, Moderate MVR * mild concentric left ventricular hypertrophy * Cardiology consult * Increase Lasix to 40mg daily * Continue Losartan, metoprolol, plavix, Eliquis (2) Acute and chronic respiratory failure with hypoxia: Code(s): J96.21 - Acute and chronic respiratory failure with hypoxia Status: Acute Assessment and Plan: * Wears 2 LPM via cannula at home, currently labored breathing on 5 LPM via cannula * Upgrade to IMU status and apply BiPap * ABG ordered (3) Atrial fibrillation: Qualifiers: Atrial fibrillation type: paroxysmal Qualified Code(s): I48.0 - Paroxysmal atrial fibrillation Code(s): I48.91 - Unspecified atrial fibrillation Status: Chronic Assessment and Plan: * Paced rhythm note on ER EKG * Eliquis is a home medication * Continue home meds (4) MAGDALENE (obstructive sleep apnea): Code(s): G47.33 - Obstructive sleep apnea (adult) (pediatric) Status: Chronic Assessment and Plan: * Uses BiPAP at night for sleep * Pulmonology note shows average use 12 hours a night usually in 2-3 hour increments with a lot of nocturia reported * AutoPAP to be available when patient not in IMU on continuous BiPAP (5) COPD (chronic obstructive pulmonary disease): Qualifiers: COPD type: unspecified COPD Qualified Code(s): J44.9 - Chronic obstructive pulmonary disease, unspecified Code(s): J44.9 - Chronic obstructive pulmonary disease, unspecified Status: Chronic Assessment and Plan: * ABG with mildly decreased pCO2 due to tachypnea * Home oxygen 2 LPM * Wean oxygen as tolerated, hopefully with increased diuresis it can lower oxygen demand as well (6) Hypertension: Qualifiers: Hypertension type: primary hypertension Qualified Code(s): I10 - Essential (primary) hypertension Code(s): I10 - Essential (primary) hypertension Status: Chronic Assessment and Plan: * Blood pressure reviewed, continue home medications (7) CKD (chronic kidney disease) stage 3, GFR 30-59 ml/min: Code(s): N18.3 - Chronic kidney disease, stage 3 (moderate) Status: Chronic Assessment and Plan: * Renal function stable currently, monitor with increased diuresis (8) Pulmonary hypertension: Code(s): I27.20 - Pulmonary hypertension, unspecified Status: Chronic Assessment and Plan: * Known history which also exacerbates dyspnea (9) Antiplatelet or antithrombotic long-term use: Code(s): Z79.02 - 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) use of antithrombotics/antiplatelets Status: Chronic Assessment and Plan: * Takes clopidogrel and apixaban, history of CABG x 5 vessels (10) S/P coronary artery bypass graft x 5: Code(s): Z95.1 - Presence of aortocoronary bypass graft Status: Chronic Assessment and Plan: * See above, continue clopidogrel and apixaban Plan -Transfer to IMU for continuous BiPAP to ease work of breathing pending additional diuresis Subjective Date/time seen: 10/31/24 07:02 Interval history: 79 year old male patient with a history of CHF, COPD, home oxygen use at 2 LPM, HTN, atrial fibrillation, CABG x 5 vessels, CKD, Pulmonary Hypertension, CAD and MAGDALENE with use of BiPAP when sleeping. 10/31/2024 Patient sitting comfortably in bed at time of exam. Currently on 3L NC, 02 sat is at 95%. Pt states he feels much better at this time, physical exam is reassuring as pt does not appear to be fluid overloaded. Cardiology on board, appreciate further recommendations. Pt otherwise feeling better today, plan for hopeful discharge tomorrow. Review of Systems Review of Systems: All systems reviewed & are unremarkable except as noted in HPI and below Exam Narrative: GENERAL: Appears older than stated age, labored breathing noted, only able to speak 2-4 words at a time HEAD: Normocephalic, atraumatic. ENT: Mucous membranes moist. NECK: Supple. CHEST: Diminished with bibasilar crackles. Labored respirations, pursed lip exhalation, tachypnea, oxygen at 5LPM NC HEART: Regular rate and rhythm. Normal peripheral pulses. ABDOMEN: Soft, nontender, nondistended. EXTREMITIES: Normal range of motion. Mild lower extremity edema noted bilateral SKIN: Warm, dry, no rash. NEURO: Alert and oriented x3. Objective Data Vital Signs Vital Signs: Vital Signs - 24 hr 10/30/24 07:17 10/30/24 07:23 10/30/24 07:23 Temperature 98.0 F Pulse Rate 81 68 Respiratory Rate 27 H Blood Pressure 183/95 H Pulse Oximetry 100 100 Oxygen Delivery Non-Rebreather Mask Non-Rebreather Mask Oxygen Flow Rate 15 15 Fraction of Inspired Oxygen 10/30/24 09:02 10/30/24 10:46 10/30/24 10:47 Temperature Pulse Rate 75 67 Respiratory Rate 21 H 19 Blood Pressure 146/78 H 156/66 H Pulse Oximetry 100 94 95 Oxygen Delivery Nasal Cannula Oxygen Flow Rate 3 Fraction of Inspired Oxygen 10/30/24 12:15 10/30/24 13:42 10/30/24 16:13 Temperature 97.4 F L Pulse Rate 62 Respiratory Rate 18 Blood Pressure 152/54 H Pulse Oximetry 95 100 93 Oxygen Delivery Nasal Cannula Nasal Cannula Oxygen Flow Rate 4 5 Fraction of Inspired Oxygen 10/30/24 16:35 10/30/24 16:35 10/30/24 19:16 Temperature Pulse Rate 60 62 Respiratory Rate 20 23 H Blood Pressure Pulse Oximetry 95 98 Oxygen Delivery Nasal Cannula BiPAP Oxygen Flow Rate 5 Fraction of Inspired Oxygen 10/30/24 20:00 10/30/24 20:00 10/30/24 20:15 Temperature 98.5 F Pulse Rate 63 60 63 Respiratory Rate 34 H 34 H Blood Pressure 158/87 H Pulse Oximetry 99 99 Oxygen Delivery BiPAP Oxygen Flow Rate Fraction of Inspired Oxygen 40 10/30/24 20:31 10/30/24 20:51 10/30/24 22:00 Temperature Pulse Rate 72 64 Respiratory Rate Blood Pressure Pulse Oximetry 95 Oxygen Delivery BiPAP Oxygen Flow Rate Fraction of Inspired Oxygen 50 10/30/24 23:00 06/08/25 23:35 10/31/24 00:00 Temperature 99.8 F H Pulse Rate 67 60 60 Respiratory Rate 18 22 H 22 H Blood Pressure 158/70 H Pulse Oximetry 96 99 99 Oxygen Delivery BiPAP BiPAP Oxygen Flow Rate Fraction of Inspired Oxygen 40 10/31/24 00:00 10/31/24 01:30 10/31/24 01:56 Temperature Pulse Rate 62 64 64 Respiratory Rate 25 H Blood Pressure Pulse Oximetry 96 Oxygen Delivery BiPAP Oxygen Flow Rate Fraction of Inspired Oxygen 10/31/24 04:00 10/31/24 04:00 10/31/24 04:00 Temperature 97.7 F Pulse Rate 60 64 60 Respiratory Rate 36 H 36 H Blood Pressure 142/69 H Pulse Oximetry 99 99 Oxygen Delivery BiPAP Oxygen Flow Rate Fraction of Inspired Oxygen 40 10/31/24 05:51 Temperature Pulse Rate 64 Respiratory Rate Blood Pressure Pulse Oximetry Oxygen Delivery Oxygen Flow Rate Fraction of Inspired Oxygen Intake/Output Intake/Output: Intake & Output 10/28/24 10/29/24 10/30/24 10/31/24 23:59 23:59 23:59 23:59 Intake Total 160 600 Output Total 700 700 Balance -540 -100 Meds/Results Medications: Active Medications Generic Name Dose Route Start Last Admin Trade Name Freq PRN Reason Stop Dose Admin Acetaminophen 650 mg 10/30/24 10:31 Acetaminophen 325 Mg Tablet PO Q4H PRN Mild Pain (1-3) or Fever Hydrocodone Bitart/Acetaminophen 1 tab 10/30/24 10:31 Hydrocodone/Acetaminophen (*Crx) 5-325 Mg Tablet PO Q4H PRN Pain Rated 4-6 Albuterol 2 puff 10/30/24 13:17 10/30/24 16:32 Albuterol Sulfate (*Sp) Aerosol 1 Puff INHALATION 2 puff Q4HRT PRN Administration Shortness Of Breath Amlodipine Besylate 5 mg 10/31/24 09:00 Amlodipine Besylate 5 Mg Tablet PO DAILY [facility] Apixaban 5 mg 10/30/24 21:00 10/30/24 20:30 Apixaban 5 Mg Tablet PO 5 mg Q12HR [place] Administration Atorvastatin Calcium 40 mg 10/31/24 09:00 Atorvastatin 40 Mg Tablet PO DAILY [facility] Clopidogrel Bisulfate 75 mg 10/31/24 09:00 Clopidogrel Bisulfate 75 Mg Tablet PO DAILY [facility] Finasteride 5 mg 10/31/24 09:00 Finasteride 5 Mg Tablet PO DAILY [facility] Fluticasone/Umeclidinium/Vilanterol 1 puff 11/01/24 08:00 Fluticasone/Umeclidin/Vilanter 100-62.5-25 Mcg Ellipta INHALATION DAILYRT [facility] Furosemide 40 mg 10/30/24 21:00 10/30/24 20:31 Furosemide Inj 40 Mg/4 Ml Vial IV PUSH 40 mg Q12HR [facility] Administration Losartan Potassium 50 mg 10/31/24 09:00 Losartan Potassium 50 Mg Tablet PO DAILY [facility] Metoprolol Tartrate 25 mg 10/30/24 21:00 10/30/24 20:31 Metoprolol Tartrate 25 Mg Tablet PO 25 mg Q12HR [place] Administration Morphine Sulfate 2 mg 10/30/24 13:15 10/30/24 18:06 Morphine Sulfate (*Crx) 2 Mg/Ml Inj IV PUSH 2 mg Q4H PRN Administration Pain Rated 7-10 Ondansetron HCl 4 mg 10/30/24 10:31 Ondansetron Inj 4 Mg/2 Ml Vial IV PUSH Q4H PRN Nausea Perflutren Lipid Microsphere 0 ml 10/30/24 13:16 Perflutren Lipid Microspheres 1.5 Ml Vial Diluted To 10 Ml Total Volume IV PUSH 11/02/24 13:16 ONCE PRN adequate visualization Protocol Radiology Results: ITS Impressions Chest X-Ray 10/30/24 07:47 Impression: Small bilateral pleural effusions with mild pulmonary edema pattern. Prior cardiac surgery and pacemaker device, as above. Labs Labs: Laboratory Results - last 24 hr 10/30/24 10/30/24 10/30/24 07:32 07:38 18:14 WBC 9.5 RBC 4.43 L Hgb 13.0 L Hct 40.9 L MCV 92.3 MCH 29.3 MCHC 31.8 L RDW 14.8 H Plt Count 192 MPV 10.4 Immature Gran % (Auto) 0.4 Neut % (Auto) 79.7 H Lymph % (Auto) 9.7 L [place] % (Auto) 9.3 H Eos % (Auto) 0.7 Baso % (Auto) 0.2 Lymph # (Auto) 0.92 [place] # (Auto) 0.9 H Eos # (Auto) 0.1 Baso # (Auto) 0.0 Abs Immat Gran (auto) 0.04 H Absolute Neuts (auto) 7.6 H Absolute Nucleated RBC 0.000 Nucleated RBC % 0.0 PT 17.9 H INR 1.5 APTT 44.8 H Puncture Site Right brachial ABG pH 7.498 H ABG pCO2 30.1 L ABG pO2 60.4 L ABG PO2/FiO2 Ratio 1.51 ABG HCO3 22.8 ABG O2 Saturation 93.4 L ABG O2 Content 17.0 ABG Base Excess 0.5 A-a Gradient 190.2 Oxyhemoglobin 91.1 Total Hemoglobin 13.3 O2 Delivery Device Nasal cannula O2 Liters/Min 5.0 FiO2 40 Sodium 139 Potassium 3.9 Chloride 104 Carbon Dioxide 28 Anion Gap 7 BUN 17 Creatinine 1.16 Estim Creat Clear Calc 50 Estimated GFR > 60 Glucose 102 Calcium 9.4 Magnesium Total Bilirubin 1.7 H AST 35 ALT 26 Alkaline Phosphatase 130 H NT-Pro-B Natriuret Pep 3470 H Total Protein 7.5 Albumin 3.9 Urine Color Yellow Urine Appearance Clear Urine pH 6.5 Ur Specific [place] 1.018 Urine Protein 3+ H Urine Glucose (UA) Negative Urine Ketones Trace H Ur Blood (Man) 2+ H Urine Nitrate Negative Urine Bilirubin Negative Urine Urobilinogen 1.0 Leukocyte Esterase Rfl Negative Urine RBC 21-50 H Urine WBC 0-5 Ur Squamous Epith Cells None seen Urine Bacteria None seen Urine Casts 0-2 10/31/24 03:47 WBC 8.6 RBC 3.74 L Hgb 11.5 L Hct 34.6 L MCV 92.5 MCH 30.7 MCHC 33.2 RDW 14.6 H Plt Count 171 MPV 10.9 H Immature Gran % (Auto) 0.3 Neut % (Auto) 72.7 Lymph % (Auto) 13.3 L [place] % (Auto) 12.9 H Eos % (Auto) 0.5 Baso % (Auto) 0.3 Lymph # (Auto) 1.14 [place] # (Auto) 1.1 H Eos # (Auto) 0.0 Baso # (Auto) 0.0 Abs Immat Gran (auto) 0.03 Absolute Neuts (auto) 6.3 Absolute Nucleated RBC 0.000 Nucleated RBC % 0.0 PT INR APTT Puncture Site ABG pH ABG pCO2 ABG pO2 ABG PO2/FiO2 Ratio ABG HCO3 ABG O2 Saturation ABG O2 Content ABG Base Excess A-a Gradient Oxyhemoglobin Total Hemoglobin O2 Delivery Device O2 Liters/Min FiO2 Sodium 137 Potassium 3.7 Chloride 103 Carbon Dioxide 29 Anion Gap 5 BUN 17 Creatinine 1.19 Estim Creat Clear Calc 45 Estimated GFR 59 Glucose 98 Calcium 8.9 Magnesium 1.9 Total Bilirubin 1.6 H AST 27 ALT 20 Alkaline Phosphatase 100 NT-Pro-B Natriuret Pep Total Protein 6.3 Albumin 3.2 L Urine Color Urine Appearance Urine pH Ur Specific [place] Urine Protein Urine Glucose (UA) Urine Ketones Ur Blood (Man) Urine Nitrate Urine Bilirubin Urine Urobilinogen Leukocyte Esterase Rfl Urine RBC Urine WBC Ur Squamous Epith Cells Urine Bacteria Urine Casts Quality VTE Prophylaxis VTE prophylaxis: pharmacologic ordered (Eliquis)
[2024-10-31] MEDS: FLUTICASONE/UMECLIDIN/VILANTER 100-62.5-25 MCG ELLIPTA 1 PUFF INHALATION (08:18)
[2024-10-31] MEDS: amLODIPine BESYLATE 5 MG TABLET PO (08:38)
[2024-10-31] MEDS: LOSARTAN POTASSIUM 50 MG TABLET PO (08:38)
[2024-10-31] MEDS: APIXABAN 5 MG TABLET PO ×2 (08:38→20:11)
[2024-10-31] MEDS: METOPROLOL TARTRATE 25 MG TABLET PO ×2 (08:39→20:11)
[2024-10-31] MEDS: FINASTERIDE 5 MG TABLET PO (08:39)
[2024-10-31] MEDS: ATORVASTATIN 40 MG TABLET PO (08:39)
[2024-10-31] MEDS: CLOPIDOGREL BISULFATE 75 MG TABLET PO (08:39)
[2024-10-31] MEDS: FUROSEMIDE INJ 40 MG/4 ML VIAL IV PUSH (08:40)
[2024-10-31] MEDS: PERFLUTREN LIPID MICROSPHERES 1.5 ML VIAL DILUTED TO 10 ML TOTAL VOLUME IV PUSH (10:30)
--- NOTE | 2024-10-31 11:34 | P.CONCA_ITS ---
Assessment and Plan Assessment and plan (1) CHF (congestive heart failure): Qualifiers: Heart failure type: unspecified Heart failure chronicity: unspecified Qualified Code(s): I50.9 - Heart failure, unspecified Code(s): I50.9 - Heart failure, unspecified Status: Acute (2) Aortic stenosis: Qualifiers: Cardiac valve disease etiology: etiology unspecified Qualified Code(s): I35.0 - Nonrheumatic aortic (valve) stenosis Code(s): I35.0 - Nonrheumatic aortic (valve) stenosis Status: Acute (3) S/P coronary artery bypass graft x 5: Code(s): Z95.1 - Presence of aortocoronary bypass graft Status: Chronic (4) Atrial fibrillation: Qualifiers: Atrial fibrillation type: paroxysmal Qualified Code(s): I48.0 - Paroxysmal atrial fibrillation Code(s): I48.91 - Unspecified atrial fibrillation Status: Chronic (5) Carotid stenosis: Qualifiers: Laterality: bilateral Qualified Code(s): I65.23 - Occlusion and stenosis of bilateral carotid arteries Code(s): I65.29 - Occlusion and stenosis of unspecified carotid artery Status: Acute Plan 79-year-old man with coronary artery disease status post CABG (NICOLE-LAD, SVG- OM1+OM2, Radial-RCA, and SVG-D, which may be occluded), severe aortic stenosis status post TAVR, persistent atrial fibrillation status post AV afshan ablation with subsequent permanent pacemaker implantation, chronic systolic heart failure (LVEF 45%), peripheral arterial disease status post COTTON STRIPPER stenting, and carotid artery stenosis presents with shortness of breath Acute on chronic systolic heart failure -euvolemic on physical examination and will change his Lasix to 40 mg p.o. daily -continue losartan and metoprolol Coronary artery disease status post bypass -continue Plavix 75 mg p.o. daily Persistent atrial fibrillation status post AV node ablation with subsequent permanent pacemaker implantation -continue Eliquis 5 mg p.o. b.i.d. Peripheral arterial disease status post COTTON STRIPPER stenting -continue Plavix 75 mg p.o. daily Carotid artery stenosis -right internal carotid artery is occluded -moderate disease in the left internal carotid artery -outpatient surveillance Patient can follow up with Dr. Vásquez outpatient History of Present Illness History of Present Illness Consult date/time: 10/31/24 11:34 Requesting physician: Srinivasa Alonzo PA-C Reason For Visit: Heart Failure Exacerbation Narrative: 79-year-old man with coronary artery disease status post CABG (NICOLE-LAD, SVG- OM1+OM2, Radial-RCA, and SVG-D, which may be occluded), severe aortic stenosis status post TAVR, persistent atrial fibrillation status post AV afshan ablation with subsequent permanent pacemaker implantation, chronic systolic heart failure (LVEF 45%), peripheral arterial disease status post COTTON STRIPPER stenting, and carotid artery stenosis presents with shortness of breath. He noted that the shortness of breath started about 4 days ago and progressively worsened. He he did endorse that he may have been eating more unhealthy food in the last week and noted 5 lb weight gain in a matter of 3-4 days. He also noted that while here in the hospital, his breathing did improve with emergency inhaler therapy. Denies any lower extremity swelling but does have some orthopnea. Currently still requires is BiPAP machine. Denies any chest discomfort. Review of Systems 2 Cardiovascular: Cardiovascular: Reports as per HPI Respiratory: Respiratory: Reports as per HPI [facility] Past Medical History Medical History Amputation toe Hypertension CKD (chronic kidney disease) stage 3, GFR 30-59 ml/min Coronary artery disease Elevated liver enzymes CHF (congestive heart failure) Atrial fibrillation COPD (chronic obstructive pulmonary disease) Surgical History Surgical History H/O aortic valve replacement Family History Family History Father CAD (coronary artery disease) Hypertension Parkinson disease Mother CAD (coronary artery disease) Hypertension Sibling CAD (coronary artery disease) Hypertension Mother Hypertension Acute myocardial infarction Father Family history of coronary artery disease Social History Social History Smoking packs per day: 1 Smoking cigarettes per day: 20.0 Years smoked: 35 Smoking pack-years: 35.00 Smoking status: Former smoker Alcohol intake: current Substance use type: does not use Do You Feel Safe in your Home?: Yes Lack of Transportation: No Lack of Food: Never True Current Housing: I Have Housing Concerned About Future Housing: No Difficulty Paying Gas/Electric Bills: No Difficulty Paying for Meds: No Currently Unemployed: No Education: High School Diploma/GED Difficulty w/ Childcare or Family Care: No Spiritual care concerns: No Meds Home Medications and Allergies Home Medications ?Medication ?Instructions ?Recorded ?Confirmed ?Type finasteride 5 mg tablet 5 mg PO DAILY 06/14/19 10/30/24 History furosemide 40 mg tablet (Lasix) 40 mg PO QAM 06/14/19 10/30/24 History losartan 50 mg tablet 50 mg PO DAILY 06/14/19 10/30/24 History metoprolol tartrate 25 mg tablet 25 mg PO BID 11/08/19 10/30/24 History amlodipine 10 mg tablet 5 mg PO DAILY 11/04/21 10/30/24 History clopidogrel 75 mg tablet 75 mg PO DAILY 11/04/21 10/30/24 History apixaban 5 mg tablet (Eliquis) 5 mg PO BID 06/10/23 10/30/24 History Trelegy Ellipta 100 mcg-62.5 1 inh inhalation DAILY #60 ea 03/23/24 10/30/24 Rx mcg-25 mcg powder for inhalation (gfrvqbtlkxd-dftnwkwuh-rtiabqzq) atorvastatin 20 mg tablet 40 mg PO DAILY 03/23/24 10/30/24 History fluticasone fur. 100 mcg-umeclid 100-62.5-25 mcg Blister With 08/23/24 10/30/24 Sample 62.5 mcg-vilant 25 mcg Device#4 Samples inhalat.powder (Trelegy Ellipta) albuterol sulfate 90 mcg/actuation 1 - 2 inh inhalation Q4-6H PRN 10/04/24 10/30/24 Rx aerosol inhaler shortness of breath or wheezing #8.5 grams Allergies Allergy/AdvReac Type Severity Reaction Status Date / Time No Known Drug Allergies Allergy Unknown na Verified 10/30/24 07:26 Vital Signs Vital Signs - 24 hr 10/30/24 12:15 10/30/24 13:42 10/30/24 16:13 Temperature 36.3 C L Pulse Rate 62 Respiratory Rate 18 Blood Pressure 152/54 H Pulse Oximetry 95 100 93 Oxygen Delivery Nasal Cannula Nasal Cannula Oxygen Flow Rate 4 5 Fraction of Inspired Oxygen 10/30/24 16:35 10/30/24 16:35 10/30/24 19:16 Temperature Pulse Rate 60 62 Respiratory Rate 20 23 H Blood Pressure Pulse Oximetry 95 98 Oxygen Delivery Nasal Cannula BiPAP Oxygen Flow Rate 5 Fraction of Inspired Oxygen 10/30/24 20:00 10/30/24 20:00 10/30/24 20:15 Temperature 36.9 C Pulse Rate 63 60 63 Respiratory Rate 34 H 34 H Blood Pressure 158/87 H Pulse Oximetry 99 99 Oxygen Delivery BiPAP Oxygen Flow Rate Fraction of Inspired Oxygen 40 10/30/24 20:31 10/30/24 20:51 10/30/24 22:00 Temperature Pulse Rate 72 64 Respiratory Rate Blood Pressure Pulse Oximetry 95 Oxygen Delivery BiPAP Oxygen Flow Rate Fraction of Inspired Oxygen 50 10/30/24 23:00 10/30/24 23:35 10/31/24 00:00 Temperature 37.7 C H Pulse Rate 67 60 60 Respiratory Rate 18 22 H 22 H Blood Pressure 158/70 H Pulse Oximetry 96 99 99 Oxygen Delivery BiPAP BiPAP Oxygen Flow Rate Fraction of Inspired Oxygen 40 10/31/24 00:00 10/31/24 01:30 10/31/24 01:56 Temperature Pulse Rate 62 64 64 Respiratory Rate 25 H Blood Pressure Pulse Oximetry 96 Oxygen Delivery BiPAP Oxygen Flow Rate Fraction of Inspired Oxygen 10/31/24 04:00 10/31/24 04:00 10/31/24 04:00 Temperature 36.5 C Pulse Rate 60 64 60 Respiratory Rate 36 H 36 H Blood Pressure 142/69 H Pulse Oximetry 99 99 Oxygen Delivery BiPAP Oxygen Flow Rate Fraction of Inspired Oxygen 40 10/31/24 05:51 10/31/24 08:00 10/31/24 08:20 Temperature Pulse Rate 64 60 Respiratory Rate Blood Pressure Pulse Oximetry 97 Oxygen Delivery Nasal Cannula Oxygen Flow Rate 3 Fraction of Inspired Oxygen 32 10/31/24 08:20 10/31/24 08:39 10/31/24 08:45 Temperature 36.7 C Pulse Rate 77 65 70 Respiratory Rate 20 20 Blood Pressure 155/59 H Pulse Oximetry 92 Oxygen Delivery Oxygen Flow Rate Fraction of Inspired Oxygen 10/31/24 10:00 10/31/24 10:22 Temperature Pulse Rate 65 63 Respiratory Rate 32 H Blood Pressure Pulse Oximetry 98 Oxygen Delivery BiPAP Oxygen Flow Rate Fraction of Inspired Oxygen Exam 2 Const: General: comfortable HENMT: Mouth: Yes moist mucous membranes Eyes: EOM: EOMs intact bilaterally Neck: Neck: no JVD Resp: Auscultation: clear to auscultation bilaterally Cardio: Rate: regular rate Rhythm: abnormal rhythm Neuro: Speech: normal speech Extrem: General: no pedal edema Results Labs and Meds 10/31/24 03:47 10/31/24 03:47 Lab results: Cardiac Enzymes 10/31/24 Range/Units 03:47 AST 27 (17-59) U/L CBC 10/31/24 Range/Units 03:47 WBC 8.6 (4.5-10.0) K/mm3 RBC 3.74 L (4.6-6.20) M/mm3 Hgb 11.5 L (14.0-18.0) g/dL Hct 34.6 L (42.0-52.0) % Plt Count 171 (150-375) k/mm3 Lymph # (Auto) 1.14 (0.9-3.2) K/mm3 [place] # (Auto) 1.1 H (0.1-0.6) K/mm3 Eos # (Auto) 0.0 (0-0.3) K/mm3 Baso # (Auto) 0.0 (0.0-0.1) K/mm3 Comprehensive Metabolic Panel 10/31/24 Range/Units 03:47 Sodium 137 (137-145) mmol/L Potassium 3.7 (3.4-5.0) mmol/L Chloride 103 (98-107) mmol/L Carbon Dioxide 29 (22-30) mmol/L BUN 17 (9-20) mg/dL Creatinine 1.19 (0.7-1.3) mg/dL Glucose 98 (65-110) mg/dL Calcium 8.9 (8.4-10.2) mg/dL AST 27 (17-59) U/L ALT 20 (6-50) U/L Alkaline Phosphatase 100 (38-126) U/L Total Protein 6.3 (6.3-8.2) g/dL Albumin 3.2 L (3.5-5.1) g/dL Intake and Output 10/30/24 10/31/24 10/31/24 23:59 07:59 15:59 Intake Total 100 600 240 Output Total 300 700 Balance -200 -100 240 Intake: Oral 100 600 240 Output: Urine 300 Catheter Urine 0 700 External/Condom 0 700
--- NOTE | 2024-10-31 12:26 | IVDEFINITY ---
Prior to administration of IV Definity the patient was educated on the risks and benefits of the imaging enhancing agent including potential adverse side effects. The patient verbalized understanding. Allergies were verified. No exclusion criteria were identified and at least one of the following inclusion criteria were met: 1) physician request, 2) patient technically difficult to image (per the [place] [employer] guidelines of two or more segments not discernable within the apical view), or 3) questionable left ventricular function. ?
[2024-11-01] VITALS (12 sets, daily range): BP systolic 146–167; BP diastolic 60–72; PULSE 60–67; RESP 12–24; TEMP 36.6–36.8; O2SAT 90–97
[2024-11-01 04:32] LABS: Basophils Percent Auto 0.4 % (0.2-1.2); Eosinophils Absolute Auto 0.2 K/mm3 (0-0.3); Hematocrit 35.6 % (42.0-52.0); Hemoglobin 11.4 g/dL (14.0-18.0); Immature Granulocyte Absolute 0.05 K/mm3 (0.00-0.031); Immature Granulocyte Percent A 0.7 % (0-0.5); Lymphocytes Absolute Auto 0.92 K/mm3 (0.9-3.2); Mean Corpuscular Hemoglobin 29.4 pg (26-34); Mean Corpuscular Volume 91.8 fl (80-100); Mean Platelet Volume 10.7 fl (7.4-10.4); Monocytes Absolute Auto 0.8 K/mm3 (0.1-0.6); Monocytes Percent Auto 10.7 % (2.6-8.5); Neutrophils Absolute Auto 5.6 K/mm3 (1.3-6.7); Neutrophils Percent Auto 73.2 % (45.5-73.1); Platelet Count Result 166 k/mm3 (150-375); Red Blood Count 3.88 M/mm3 (4.6-6.20); Red Cell Distribution Width 14.3 % (11.5-14.5); White Blood Count 7.7 K/mm3 (4.5-10.0)
[2024-11-01 04:57] LABS: Alanine Aminotransferase 28 U/L (6-50); Alkaline Phosphatase 121 U/L (38-126); Anion Gap 4 mmol/L (4-12); Aspartate Amino Transferase 32 U/L (17-59); Bilirubin,Total 0.8 mg/dL (0.2-1.3); Blood Urea Nitrogen 26 mg/dL (9-20); Calcium 8.6 mg/dL (8.4-10.2); Carbon Dioxide 30 mmol/L (22-30); Chloride 105 mmol/L (98-107); Estimated CRCL calculation 41 ml/min; Estimated Glomerular Filt Rate 53; Glucose 100 mg/dL (65-110); Magnesium 2.1 mg/dL (1.6-2.3); Potassium 3.5 mmol/L (3.4-5.0); Sodium 139 mmol/L (137-145); Total Protein 6.1 g/dL (6.3-8.2)
[2024-11-01] MEDS: FLUTICASONE/UMECLIDIN/VILANTER 100-62.5-25 MCG ELLIPTA 1 PUFF INHALATION (08:29)
[2024-11-01] MEDS: METOPROLOL TARTRATE 25 MG TABLET PO (09:37)
[2024-11-01] MEDS: CLOPIDOGREL BISULFATE 75 MG TABLET PO (09:37)
[2024-11-01] MEDS: FUROSEMIDE 40 MG TABLET PO (09:38)
[2024-11-01] MEDS: amLODIPine BESYLATE 5 MG TABLET PO (09:38)
[2024-11-01] MEDS: LOSARTAN POTASSIUM 50 MG TABLET PO (09:38)
[2024-11-01] MEDS: FINASTERIDE 5 MG TABLET PO (09:38)
[2024-11-01] MEDS: APIXABAN 5 MG TABLET PO (09:38)
[2024-11-01] MEDS: ATORVASTATIN 40 MG TABLET PO (09:38)
--- NOTE | 2024-11-01 11:22 | P.DS_ITS ---
DS: Admitting Diagnosis Discharge Date 11/01/2024 Admitting Diagnosis CHF Exacerbation DS: Discharge Diagnosis Discharge Diagnosis (1) CHF exacerbation: Qualifiers: Heart failure type: combined systolic and diastolic Qualified Code(s): I50.43 - Acute on chronic combined systolic (congestive) and diastolic (feliberto estive) heart failure Code(s): I50.9 - Heart failure, unspecified Status: Acute (2) Acute and chronic respiratory failure with hypoxia: Code(s): J96.21 - Acute and chronic respiratory failure with hypoxia Status: Acute (3) Atrial fibrillation: Qualifiers: Atrial fibrillation type: paroxysmal Qualified Code(s): I48.0 - Paroxysmal atrial fibrillation Code(s): I48.91 - Unspecified atrial fibrillation Status: Chronic (4) MAGDALENE (obstructive sleep apnea): Code(s): G47.33 - Obstructive sleep apnea (adult) (pediatric) Status: Chronic (5) COPD (chronic obstructive pulmonary disease): Qualifiers: COPD type: unspecified COPD Qualified Code(s): J44.9 - Chronic obstructive pulmonary disease, unspecified Code(s): J44.9 - Chronic obstructive pulmonary disease, unspecified Status: Chronic (6) Hypertension: Qualifiers: Hypertension type: primary hypertension Qualified Code(s): I10 - Essential (primary) hypertension Code(s): I10 - Essential (primary) hypertension Status: Chronic (7) CKD (chronic kidney disease) stage 3, GFR 30-59 ml/min: Code(s): N18.3 - Chronic kidney disease, stage 3 (moderate) Status: Chronic (8) Pulmonary hypertension: Code(s): I27.20 - Pulmonary hypertension, unspecified Status: Chronic (9) Antiplatelet or antithrombotic long-term use: Code(s): 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 He is admitted to the hospital with respiratory failure with hypoxia and presumed CHF exacerbation. Patient states usually he can walk for a short while then rest and his dyspnea will go away but for the past 3 days this has not been the case. He has had to increase his oxygen from 2 LPM to 5 LPM and even moving his arms will cause him considerable dyspnea. He reports not being able to walk or even talk as much as usual due to worsening shortness of breath. EMS increased oxygen to 15 LPM via non-rebreather which ER was able to wean to 5 LPM via cannula. Patient was given IV furosemide in ER after CXR appeared to have pulmonary edema. Once patient arrived to the floor he was weaned to 3 LPM which maintained oxygen saturations but patient was getting more dyspneic so it had to be increased back to 5 LPM. On my evaluation patient was in respiratory distress with pursed lip breathing, crackles and diminished lung sounds. ABG obtained and patient was moved to IMU to be placed on BiPAP continuously. Patient reports the past 3 days his breathing has been getting worse each day. He is DNR/DNI status per patient's wishes but he is ok with BiPAP and other selective measures. Echocardiogram showed mildly reduced systolic function with EF of 45-50% which is unchanged from previous study. Normal size and systolic function of the right ventricle. TAVR valve the aortic position, normal functioning bioprosthesis and no perivalvular leak or intraoral valvular regurgitation. Thickened mitral valve leaflets, moderate mitral regurgitation. Normal inferior vena cava over 50% collapse on inspiration consistent with normal right atrial pressure. Cardiology consult regarding CHF exacerbation underlying aortic stenosis and history of coronary artery bypass graft. They recommended continuing at home medications for these issues, as well as increasing Lasix to 40 mg p.o. daily. Over the course of this hospitalization patient's symptoms improved greatly, lower extremity edema subsided completely and physical exam improved. Patient also had a subjective improvement in his shortness of breath, stating that he feels as though he is at his baseline in terms of rest and activity levels of dyspnea. Patient is otherwise hemodynamically stable. His creatinine did elevate from 1.19-1.3, however this is likely due to more aggressive diuresis. This will likely normalize over the next few days with appropriate hydration and management of his CHF. PT/OT evaluations ordered and they did not recommend any further therapy needs. Patient can be safely discharged at this time. Status at Discharge Functional status at discharge: uses cane/walker Overall status at discharge: patient is progressing back to baseline Time Spent with Patient Time attestation: Total time spent providing and/or coordinating discharge services: 43 Exam Narrative: GENERAL: Appears older than stated age, labored breathing noted, only able to speak 2-4 words at a time HEAD: Normocephalic, atraumatic. ENT: Mucous membranes moist. NECK: Supple. CHEST: Lung sounds diminished but no crackles, wheezing, rhonchi. HEART: Regular rate and rhythm. Normal peripheral pulses. ABDOMEN: Soft, nontender, nondistended. EXTREMITIES: Normal range of motion. Mild lower extremity edema noted bilateral SKIN: Warm, dry, no rash. NEURO: Alert and oriented x3. DS: Data Data Completed and Pending Labs on day of discharge: Labs from last 24 hours 11/01/24 04:08 WBC 7.7 RBC 3.88 L Hgb 11.4 L Hct 35.6 L MCV 91.8 MCH 29.4 MCHC 32.0 RDW 14.3 Plt Count 166 MPV 10.7 H Immature Gran % (Auto) 0.7 H Neut % (Auto) 73.2 H Lymph % (Auto) 12.0 L Schleicher % (Auto) 10.7 H Eos % (Auto) 3.0 Baso % (Auto) 0.4 Lymph # (Auto) 0.92 Schleicher # (Auto) 0.8 H Eos # (Auto) 0.2 Baso # (Auto) 0.0 Abs Immat Gran (auto) 0.05 H Absolute Neuts (auto) 5.6 Absolute Nucleated RBC 0.000 Nucleated RBC % 0.0 Sodium 139 Potassium 3.5 Chloride 105 Carbon Dioxide 30 Anion Gap 4 BUN 26 H Creatinine 1.31 H Estim Creat Clear Calc 41 Estimated GFR 53 L Glucose 100 Calcium 8.6 Magnesium 2.1 Total Bilirubin 0.8 AST 32 ALT 28 Alkaline Phosphatase 121 Total Protein 6.1 L Albumin 3.0 L Discharge Plan Discharge Attending physician on discharge: Winston Negrete Consulting providers: Ishaan Valdovinos; Srinivasa Alonzo Discharging Clinician: Srinivasa Alonzo Anticipated Discharge Date/Time: 11/01/24 11:15 Patient Disposition: Home Activity: as tolerated Diet: as tolerated Discharge Instructions: Take medications as prescribed. Continue taking Lasix 40 mg daily Maintain a cardiac diet, 2 g sodium, do not over hydrate Remain active Monitor urine output Daily weights, if you gain more than 3 lb within 1 day or 5 lb in 1 week notify your primary care provider If you develop chest pain, shortness breath, fever greater than 101, nausea, or vomiting notify a clinician or come to the emergency department Follow-up with primary care provider within 1-2 weeks Thank you for choosing [facility] for your healthcare needs Patient Instructions: Antibiotic Form, Heart Failure (DC), Breathing Techniques (GEN), Dyspnea Scale and Exercise (GEN), Shortness of Breath (GEN) Patient Language: Nigerian Stand Alone Forms: General Discharge Information Follow-up/Referrals: Timo Coronado, [Primary Care Provider] - Discharge Medications: Continued finasteride 5 mg tablet 5 mg PO DAILY furosemide [Lasix] 40 mg tablet 40 mg PO QAM losartan 50 mg tablet 50 mg PO DAILY amlodipine 10 mg tablet 5 mg PO DAILY metoprolol tartrate 25 mg tablet 25 mg PO BID Rx Instructions: 2 tablets BID clopidogrel 75 mg tablet 75 mg PO DAILY Eliquis 5 mg tablet 5 mg PO BID atorvastatin 20 mg tablet 40 mg PO DAILY Trelegy Ellipta 100-62.5-25 mcg blister with device 1 inh INHALATION DAILY Qty: 60 11RF Rx Instructions: Rinse mouth and spit after each use fluticasone fur. 100 mcg-umeclid 62.5 mcg-vilant 25 mcg inhalat.powder 100-62. 5-25 mcg blister with device 0RF albuterol sulfate 90 mcg/actuation HFA aerosol inhaler 1 - 2 inh inhalation Q4-6H PRN (Reason: shortness of breath or wheezing) Qty: 8.5 2RF Date of admission: 10/31/24 10:15 Primary Care Provider: Timo Coronado Admitting Provider: Winston Negrete Attending physician on admission: Winston Negrete Condition: Stable Quality VTE Prophylaxis VTE prophylaxis: pharmacologic ordered (Eliquis)
== END 2024-11-01 12:35 | disposition home or self-care (01) | DRG 291 ==
LOC: ANHED 10:33 → ANH3MEDSUR 11:26 → ANHIMU 18:47
PROVIDERS: Nurse Practitioner; Admitting Provider Family Medicine; Emergency Provider Emergency Medicine; PCP Internal Medicine; Visit Provider Physician Assistant
DX: I13.0 Hypertensive heart and chronic kidney disease with heart failure and stage 1 through stage 4 chronic kidney disease, or unspecified chronic kidney disease (principal); I50.43 Acute on chronic combined systolic (congestive) and diastolic (congestive) heart failure; J96.21 Acute and chronic respiratory failure with hypoxia; I48.20 Chronic atrial fibrillation, unspecified; I25.10 Atherosclerotic heart disease of native coronary artery without angina pectoris; I27.20 Pulmonary hypertension, unspecified; I65.29 Occlusion and stenosis of unspecified carotid artery; N18.30 Chronic kidney disease, stage 3 unspecified; J44.9 Chronic obstructive pulmonary disease, unspecified; G47.33 Obstructive sleep apnea (adult) (pediatric); Z99.81 Dependence on supplemental oxygen; Z79.02 Long term (current) use of antithrombotics/antiplatelets; Z79.01 Long term (current) use of anticoagulants; Z89.429 Acquired absence of other toe(s), unspecified side; Z95.2 Presence of prosthetic heart valve; Z87.891 Personal history of nicotine dependence; Z95.1 Presence of aortocoronary bypass graft; Z95.0 Presence of cardiac pacemaker
CPT/HCPCS: 36415; 36600; 71045; 80053; 81001; 82805; 83735; 83880; 85018; 85025; 85610; 85730; 93005; 94002; 94003; 94640; 96374; 96375; 96376; 97162; 97165; 99285; A9270; C8929; G0378; J1938; J2270; Q9957

== ENCOUNTER 2025-02-15 09:27 | Emergency (ER) | payer MEDICARE, SELFPAY ==
[2025-02-15 09:29] VITALS: BP 162/62; PULSE 60; RESP 16; TEMP 36.8; O2SAT 100
--- OUTSIDE RECORDS SUMMARY | 2025-02-15 10:22 | XMS_ITS | Clinical Summary ---
Author Organization [facility] Address [address] [place] [id number] Care Team Providers Care Boiler Assistant Operator Name Role Phone Unavailable Primary Care Provider Unavailabl e Social History Tobacco Use Types Packs/Day Years Used Date Smoking Tobacco: Never Assessed Sex and Gender Information Value Date Recorded Sex Assigned at Not on file Legal Sex Male 4:32 PM CDT Gender Identity Not on file Sexual Orientation Not on file Plan of Treatment Health Maintenance Due Date Last Done Comments DTaP, Tdap and Td Vaccines ( 1 - Tdap) 02/05/1964 Pneumococcal Vaccine: 50+ Ye ars (1 of 1 - PCV) 1995 Zoster Vaccines (1 of 2) 1995 RSV Immunization or 60+ Years (1 - 1-dose 75+ series) 02/05/2020 COVID-19 Vaccine ( - 2023-2 5 season) 2025 Meningococcal B Vaccine Aged Out No l onger eligible based on patient's age to complete this topic Meningococcal Vaccine Aged Out No demetri luis a eligible based on patient's age to complete this topic RSV Immunizations Under 20 Months Aged Out No longer eligible based on patient's age to complete this topic
--- OUTSIDE RECORDS SUMMARY | 2025-02-15 10:22 | XMS_ITS | Clinical Summary ---
Author Organization [facility] Address [address] [place] [address] Care Team Providers Care Operations Section Manager Name Role Phone Unavailable Primary Care Provider Unavailabl e Source Comments [facility],non-owned Affiliates and Associated Physician Practices is amultiple site organization consisting of ambulatory clinics and hospital sitesin [place], [place], [place] and [place]. This disclosure is being madepursuant to the Care Everywhere program and may not contain all information available regarding this patient. 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
--- OUTSIDE RECORDS SUMMARY | 2025-02-15 10:22 | XMS_ITS | Clinical Summary ---
Author Organization [facility] [address] Address [address] [place] [address] Care Team Providers Care Slip Sheeter Name Role Phone Timo Coronado DO Primary Care Provider [phone] Miscellaneous, Not In File Unavailable Unava ilable [...] for wheezing Active acetaminophen (TYLENOL) 325 mg tabletIndication s:Fever,Pain Take 2 tablets (650 mg total) by mouth every 4 (four) hours as needed for pain [address] (PROTONIX) 40 mg EC tabletIndication s:Stress Ulcer Prophylaxis Take 1 tablet (40 mg total) by mouth daily 3 Active Additional Information Patient not taking.Reported on 02/10/2025 amLODIPine (NORVASC) 10 mg tablet Take 1 tablet (10 mg total) by mouth daily 90 tablet 2 5 05/26/19 26 Active furosemide (LASIX) 20 mg tablet Take [...] mouth daily 90 tablet 2 5 Active Additional Information Patient not taking.Reported on 02/10/2025 metoprolol tartrate (LOPRESSOR) 25 mg immediate release tablet Take 1 tablet by mouth twice daily 180 tablet 5 Active Active Problems Problem Noted Date Diagnosed Date [...] 05/01/2023 Assessment & Plan (05/07/2023 6:43 PM SHOE SALESPERSON): Mr. Pena is a 78 yo M [...] (10/25/2018): Added automatically from request for surgery [id number] Pacemaker 10/04/2018 Overview (12/14/2018): [employer] DDD Quadra Allure [id number] BI-V Pacemaker implanted for SSS/Afib on 10/04/18-Mario - Carloz AV Node Ablation 11/09/2018-Mario. BUTLER (dyspnea on exertion) 01/12/2018 Nonrheumatic aortic valve stenosis 02/11/2017 Primary hypertension 02/11/2017 Assessment & Plan (07/31/2023 1:27 PM SHOE SALESPERSON): Stable continue losartan 50 mg. 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 RBBB 12/07/2015 Stenosis of carotid artery 12/05/2014 Assessment & Plan (07/31/2023 1:27 PM SHOE SALESPERSON): Occlusion of right internal carotid artery. Left [...] (08/29/2016): Disorder of artery Coronary arteriosclerosis in [place] artery 05/09 Overview (08/29/2016): Coronary arteriosclerosis in [place] artery Encounters Date Type Department Care Team Description 02/10/2025 1:45 PM CDT Office Visit [facility] Medical [facility] Cardiology [address] [facility] [address] [place] [id number] Parveen Vásquez MD Chronic diastolic heart failure (HCC) (Primary Dx); Coronary arteriosclerosis in [place] artery; Hyperlipidemia LDL goal <70; Persistent atrial fibrillation (HCC); S/P TAVR (transcatheter aortic valve replacement); PVD (peripheral vascular disease) 12/20/2024 8:30 AM CDT Ancillary Procedure [facility] Cardiology [address] [facility] [address] [place] [id number] Persistent atrial fibrillation (HCC); SSS (sick sinus syndrome) ([facility]); H/O cardiac radiofrequency ablation; Pacemaker 12/02/2024 1:45 PM CDT Ancillary Procedure [facility] Medicine Vascular Lab [address] [facility] Office Building [address] [address] Bilateral carotid artery stenosis 12/02/2024 1:00 PM CDT Ancillary Procedure [facility] Medicine Vascular Lab [address] [facility] Office [address], [place] [address] PVD (peripheral vascular disease) 11/17/2024 12:39 PM CDT - 11/17/2024 11:59 PM CDT Hospital Encounter [facility] [id number] [place] [id number] Chronic kidney disease (CKD) stage G3a/A1, moderately decreased glomerular filtration rate (GFR) between 45-59 mL/min/1.73 square meter and albuminuria creatinine ratio less than 30 mg/g (HCC); Heart failure, unspecified (HCC) Discharge Disposition: Discharge to home or self care 11/17/2024 12:30 PM CDT Lab [facility] Medical [facility] Outpatient Lab at [address] [phone] Chronic kidney disease (CKD) stage G3a/A1, moderately decreased glomerular filtration rate (GFR) between 45-59 mL/min/1.73 square meter and albuminuria creatinine ratio less than 30 mg/g (HCC) (Primary Dx); Heart failure, unspecified (HCC) from Last 3 Months Immunizations Immunization Administration [...] Hypertension Hyperlipidemia COPD (chronic obstructive pulmonary disease) Carotid artery disease CHF (congestive heart failure) [...] N/ A beer may once per wk [facility] Utilities Answer Date Recorded In the past 12 months has e electric, gas, oil, or water company threatened to shut off services in your home? No 08/13/2023 Social Connection and Isolation Panel Answer Date Recorded In a typical week, how many times do you talk on the phone with family, friends, or neighbors? Once a week 08/13/2023 How often do you get together with friends or re latives? Once a week 08/13/2023 How often do you attend sikh or evangelical serv ices? Never 08/13/2023 Do you belong to any clubs o r organizations such as sikh groups, unions, fraternal or athletic groups, or [...] place to sleep or slept in a nursing home (including now)? No 08/13/2023 Personal Safety Answer Date Recorded Have you ever been in or are you currently in a harmful physical or emotional relationship or is someone making you feel afraid or unsafe? Denies 08/13/2023 Sex and Gender Information Value Date Recorded Sex Assigned at Not on file Legal Sex Male 8:02 AM SHOE SALESPERSON Gender Identity Male 05/28/2021 12:28 PM SHOE SALESPERSON Sexual Orientation Not on file Obstetrics History Last Filed Vital Signs Vital Sign Reading Time Taken Comments Blood Pressure 124/74 02/10/2025 1:55 PM CDT Pulse 61 02/10/2025 1:55 PM CDT Temperature 35.9 C (96.7 F) 04/11/2024 11:08 AM SHOE SALESPERSON Respiratory Rate 20 01/08/2024 2:52 PM CDT Oxygen Saturation 99% 02/10/2025 1:55 PM CDT 2.5L Inhaled Oxygen Concentration - - Weight 79.7 kg (175 lb 9.6 oz) 02/10/2025 1:55 P M CDT Height 172.7 cm (5' 8) 02/10/2025 1:55 PM CDT Body Mass Index 26.7 02/10/2025 1:55 PM CDT Plan of Treatment Health Maintenance Due Date Last Done Comments DTaP/Tdap/Td Vaccine (1 - Tdap) 02/05/1956 Hepatitis B Screening 1963 Pneumococcal vaccine 65+ (1 of 2 - PCV) 02/05/1964 Zoster Vaccine (1 of 2) 1995 Well Visit 65+ 2010 Depression Screening 04/24/2024 04/24/2023 Fall Risk Assessment 09/10/2024 09/11/2023, 02/24/20 Influenza Vaccine (#1) 2025 , 03/13/2020, 03/09/2019, Additional history exists Abdominal Aortic Aneurysm (A AA) Screen Completed 03/27/2023 Medical Devices Implanted Type Area Compliance Lead Device Identifier Shelf Expiration Date Model / Serial / Lot PK Clean Angio-Seal Vip 6fr Closere Device [id number] - [id number] - [id number] Implanted:Qty: 1 on 05/04/2023 by Pop Yoon MD at [facility] Right: Common Femoral Artery PK Clean 11/03/2023 [id number] / [id number] / [id number] [employer] 2088tc/58 Tendril Sts 6fr 58cm Is-1 Connector Active Fixation Bipolar Soft - [id number] - [id number] Implanted:Qty: 1 on 10/04/2018 by Hussein Martin MD at [facility] Lead [employer] [id number] 06/24/2021 2088TC/ 58 / [id number] / [employer] 1458q/86 Quartet 5fr [id number] 4 Electrode Is-4 Connector Steerable Tip - [id number] - [id number] Implanted:Qty: 1 on 10/04/2018 by Hussein Martin MD at [facility] Lead [employer] [id number] 08/22/2021 1458Q/8 6 / [id number] / [employer] [id number] Pacemaker Quadra Allure Mp Rf Cisco Network Engineer-P Mri - [id number] - [id number] Implanted:Qty: 1 on 10/04/2018 by Hussein Martin MD at [facility] Pacemaker [employer] [id number] 03/24/2020 [id number] / [id number] / Orellana [employer]iences Valve Heart 26mm Colette 3 Transcatheter [id number] - [id number] - [id number] Implanted:Qty: 1 on 05/04/2023 by Pop Yoon MD at [facility] Prosthetic Valve N/A: Aortic Valve [employer] 01/12/2026 [id number] [id number] / [id number] / Medtronic Inc Visi-Pro 8mm 17mm 135cm Radiopaque Balloon Expand Radial Strength - [id number] Implanted:Qty: 1 on 06/14/[address] MD at [facility] Stent Left: Subclavian Medtronic Inc 01/02/2024 PXB35-0 8-17-13 5 / / [id number] [employer] Device Clsr Perclose Prostyle Sut-Mediatd Closure-Repair Sys 97096-66 - [id number] - [id number] Implanted:Qty: 1 on 05/04/2023 by Pop Yoon MD at [facility] Vascular Closure Device Left: Common Femoral Artery [employer] 09/21/2024 16153-3 3 / [id number] / [id number] Access Closure Inc Device 10ml 5fr Closure Mynx Control 2 Mode Balloon Catheter [id number] - [id number] Implanted:Qty: 1 on 03/20/[address] MD at [facility] Access Closure Inc 04/23/2024 [id number] / / [id number] Cardiva Medical Inc Device Closure Vascade Od5 Fr Femoral Artery [id number] - [id number] Implanted:Qty: 1 on 08/27/[address] MD at [facility] [employer] Inc 04/07/2025 700-500 DX-05U / / [id number] Medtronic Inc Everflex Entrust 6mm 40mm 120cm Self Expand Triaxial Low Profile - [id number] Implanted:Qty: 1 on 09/01/2023 by Cristobal Dill MD at [facility] Med[employer]onic Inc 07/13/2025 EVD35-0 6-040-1 20 / / [id number] Cardiva Medical Inc Device Vascular Closure Femoral Artery Bioabsorbable Dual Method Vascade 6-7fr Collagen [id number] - [id number] Implanted:Qty: 1 on 09/01/2023 by Cristobal Dill MD at [facility] Cardioh Medical Inc 04/22/2025 700-580 I-05U / / [id number] [employer] Supera 5.5mm 6fr 150mm 120cm Otw Self Expandable Closed End Braid B-71-417-120-P6 - [id number] Implanted:Qty: 1 on 09/01/2023 by Cristobal Dill MD at [facility] [employer] 04/23/2024 S-55-15 0-120-P 6 / [id number] [employer] Supera 6mm 6fr 100mm 120cm Peripheral Stent Vascular N-04-439-120-P6 - [id number] Implanted:Qty: 1 on 09/01/2023 by Cristobal Dill MD at [facility] Vascular 05/24/2024 S-60-10 0-120-P 6 [id number] Medtronic Inc Everflex Entrust 6mm 150mm 120cm Self Expand Triaxial Low Profile - [id number] Implanted:Qty: 1 on 09/01/2023 by Cristobal Dill MD at [facility] [employer] Inc 11/20/2025 EVD35-0 6-150-1 20 / / [id number] Procedures Procedure Name Priority Date/Time Associated Diagnosis Comments DEVICE CHECK - REMOTE Routine 12/20/2024 9:35 AM CDT Persistent atrial fibrillation (HCC) SSS (sick sinus syndrome) (HCC) H/O cardiac radiofrequency ablation Pacemaker US CAROTIDS DUPLEX BILATERAL Schedule Routine, Read Routine (OP Routine) 12/02/2024 1:54 PM CDT Bilateral carotid artery stenosis US ARTERIAL DUPLEX LOWER EXTREMITY LEFT LIMITED Schedule Routine, Read Routine (OP Routine) 12/02/2024 1:54 PM CDT PVD (peripheral vascular disease) US DARREN Schedule Routine, Read Routine (OP Routine) 12/02/2024 1:54 PM CDT PVD (peripheral vascular disease) EGFR Routine 11/17/2024 5:55 PM CDT Chronic kidney disease (CKD) stage G3a/A1, moderately decreased glomerular filtration rate (GFR) between 45-59 mL/min/1.73 square meter and albuminuria creatinine ratio less than 30 mg/g (HCC) Heart failure, unspecified (HCC) PRO B-TYPE NATRIURETIC PEPTIDE Routine 11/17/2024 5:55 PM CDT Chronic kidney disease (CKD) stage G3a/A1, moderately decreased glomerular filtration rate (GFR) between 45-59 mL/min/1.73 square meter and albuminuria creatinine ratio less than 30 mg/g (HCC) Heart failure, unspecified (HCC) BASIC METABOLIC PANEL Routine 11/17/2024 5:55 PM CDT Chronic kidney disease (CKD) stage G3a/A1, moderately decreased glomerular filtration rate (GFR) between 45-59 mL/min/1.73 square meter and albuminuria creatinine ratio less than 30 mg/g (HCC) Heart failure, unspecified (HCC) CTA ABDOMINAL AORTA AND BILATERAL ILIOFEMORAL RUNOFF IP Routine 03/27/2023 11:58 AM CDT from Last 3 Months or Most Recently Relevant to Health Maintenance Results * DEVICE CHECK - REMOTE (12/20/2024 9:35 AM CDT) Anatomical Region Laterality Modality Other Narrative 01/19/2025 4:[address] [employer] DDD Quadra Allure [id number] BI-V Pacemaker implanted for SSS/Afib on 10/04/18-Mario - Carloz AV Node Ablation 11/09/2018-Mario. Routine VVIR Pacemaker Remote. Transmission attached. Battery status: 2.98 V , 4.9-5.3 years remaining battery life to IAN. Stable lead impedances, pacing and sensing thresholds. Presenting rhythm: BP with 1 PVC BIVP-95%. No Ventricular high rate episodes detected. Medications: Eliquis 5 mg, amlodipine 10 mg, Plavix 75 mg, losartan 50 mg, metoprolol 25 mg See scanned report. Office pacemaker follow up: 6 months [place] remote f/u 03/21/25. Eugene Calix, FERMIN us Parveen Vásquez MD [facility] Final Result * US Carotids Duplex Bilateral (12/02/2024 1:54 PM CDT) Anatomical Region Laterality Modality Vascular Bilateral Ultrasound 12/02/2024 1:01 PM CDT Narrative 12/05/2024 9:27 AM CDT [facility] - Department of Vascular Surgery, Vascular Laboratory [address] [place] [address] Carotid Duplex Ultrasound Report Patient Name: JAIR PENA : 1945 (79y 9m) Study Date: 12/02/2024 1:01:39 PM Gender: M Tech: TT Location: [facility] Ref Provider: CRISTOBAL DILL Quality: Adequate Order Provider: CRISTOBAL DILL PROCEDURES: Carotid Report: Carotid duplex examination of the extracranial arteries was performed using 2D, color and spectral Doppler. INDICATIONS: I65.23 Occlusion and stenosis of bilateral carotid arteries. MEASUREMENTS: Right Value Units Left Value Units RT Prox CCA PSV 55 cm/sec LT Prox CCA PSV 91 cm/sec RT Prox CCA EDV 10 cm/sec LT Prox CCA EDV 18 cm/sec RT Distal CCA PSV 41 cm/sec LT Distal CCA PSV 74 cm/sec RT Distal CCA EDV 0 cm/sec LT Distal CCA EDV 17 cm/sec RT Prox ICA PSV 0 cm/sec LT Prox ICA PSV 144 cm/sec RT Prox ICA EDV 0 cm/sec LT Prox ICA EDV 34 cm/sec RT Mid ICA PSV 0 cm/sec LT Mid ICA PSV 244 cm/sec RT Mid ICA EDV 0 cm/sec LT Mid ICA EDV 59 cm/sec RT Distal ICA PSV 0 cm/sec LT Distal ICA PSV 100 cm/sec RT Distal ICA EDV 0 cm/sec LT Distal ICA EDV 35 cm/sec RT ECA Prx PSV 341 cm/sec LT ECA Prx PSV 224 cm/sec RT ICA/CCA 0.00 ratio LT ICA/CCA 3.32 ratio RT VERT PSV 52 cm/sec LT VERT PSV 81 cm/sec FINDINGS: Performing Bailiff: Jayce Reese RVT. Rt Common Carotid Artery: The plaque in the right CCA appears to be heterogeneous and smooth. Atherosclerotic changes of the right common carotid artery with no hemodynamically significant Doppler findings. Rt Internal Carotid Artery: The plaque in the right internal carotid artery appears to be heterogeneous, calcified and smooth. No evidence of color filling and absent Doppler signals within the right internal carotid artery. Significant atherosclerotic disease present on 2D imaging. Rt External Carotid Artery: Patent right external carotid artery with evidence of atherosclerotic disease present. Rt Vertebral Artery: The right vertebral artery is patent with antegrade flow. Lt Common Carotid Artery: The plaque in the left CCA appears to be heterogeneous and smooth. Atherosclerotic changes of the left common carotid artery with no hemodynamically significant Doppler findings. Lt Internal Carotid Artery: The plaque in the left internal carotid artery appears to be heterogeneous and smooth. Significant atherosclerotic changes of the left internal carotid artery with elevated peak systolic velocity and end diastolic velocity, as above. 50-69% stenosis. However stenosis is >70% per PSV. Lt External Carotid Artery: Patent left external carotid artery with evidence of atherosclerotic disease present. Lt Vertebral Artery: The left vertebral artery is patent with antegrade flow. CONCLUSIONS: 1. The right internal carotid artery disease is consistent with a severe obstruction or complete occlusion. 2. The left internal carotid artery disease is consistent with a 50-69% stenosis. However stenosis is >70% per PSV. 3. No evidence of hemodynamically significant stenosis in the common carotid artery bilaterally. 4. Normal, antegrade flow is noted in bilateral vertebral arteries. HISTORY: HLD, PVD, AF, COPD, TIA, HTN, CAD, CABG, CHF, Former smoker, left great toe ulcer. - PREVIOUS STUDIES: Previous carotid ultrasound on 8-16-24 Rt. occluded Lt. 50-69%. DISCLAIMER: The study images and the final report will be retained in the patient chart by the Vascular Laboratory for the legally required time period. This chart constitutes the legal record of any testing performed. ATTESTATION: I have reviewed and interpreted the pertinent images and measurements of this study. I attest to the conclusions in the final report that is provided above. Electronically Signed By: Cristobal HARDY OR 12/05/2024 9:26:02 AM CDT Procedure Note Cristobal Dill MD - 12/05/2024 [facility] - Department of Vascular Surgery,Vascular Laboratory [address] [place] [address] Carotid Duplex Ultrasound Report Patient Name: JARI PENA : 1945 (79y 9m) Study Date: 12/02/2024 1:01:39 PM Gender: M Tech: Location: [facility] Provider: CRISTOBAL DILL Quality: Adequate Order Provider: CRISTOBAL DILL PROCEDURES: Carotid Report: Carotid duplex examination of the extracranial arterieswas performed using 2D, color and spectral Doppler. INDICATIONS: I65.23 Occlusion and stenosis of bilateral carotid arteries. MEASUREMENTS: Right Value Units Left Value Units RT Prox CCA PSV 55 cm/sec LT Prox CCA PSV 91 cm/sec RT Prox CCA EDV 10 cm/sec LT Prox CCA EDV 18 cm/sec RT Distal CCA PSV 41 cm/sec LT Distal CCA PSV 74 cm/sec RT Distal CCA EDV 0 cm/sec LT Distal CCA EDV 17 cm/sec RT Prox ICA PSV 0 cm/sec LT Prox ICA PSV 144 cm/sec RT Prox ICA EDV 0 cm/sec LT Prox ICA EDV 34 cm/sec RT Mid ICA PSV 0 cm/sec LT Mid ICA PSV 244 cm/sec RT Mid ICA EDV 0 cm/sec LT Mid ICA EDV 59 cm/sec RT Distal ICA PSV 0 cm/sec LT Distal ICA PSV 100 cm/sec RT Distal ICA EDV 0 cm/sec LT Distal ICA EDV 35 cm/sec RT ECA Prx PSV 341 cm/sec LT ECA Prx PSV 224 cm/sec RT ICA/CCA 0.00 ratio LT ICA/CCA 3.32 ratio RT VERT PSV 52 cm/sec LT VERT PSV 81 cm/sec FINDINGS: Performing Bailiff: Jayce Reese RVT. Rt Common Carotid Artery: The plaque in the right CCA appears to beheterogeneous and smooth. Atherosclerotic changes of the right common carotid artery with no hemodynamically significant Doppler findings. Rt Internal Carotid Artery: The plaque in the right internal carotidartery appears to be heterogeneous, calcified and smooth. No evidence of color filling andabsent Doppler signals within the right internal carotid artery. Significantatherosclerotic disease present on 2D imaging. Rt External Carotid Artery: Patent right external carotid artery withevidence of atherosclerotic disease present. Rt Vertebral Artery: The right vertebral artery is patent with antegradeflow. Lt Common Carotid Artery: The plaque in the left CCA appears to beheterogeneous and smooth. Atherosclerotic changes of the left common carotid artery with nohemodynamically significant Doppler findings. Lt Internal Carotid Artery: The plaque in the left internal carotid arteryappears to be heterogeneous and smooth. Significant atherosclerotic changes of the leftinternal carotid artery with elevated peak systolic velocity and end diastolicvelocity, as above. 50-69% stenosis. However stenosis is >70% per PSV. Lt External Carotid Artery: Patent left external carotid artery withevidence of atherosclerotic disease present. Lt Vertebral Artery: The left vertebral artery is patent with antegradeflow. CONCLUSIONS: 1. The right internal carotid artery disease is consistent with a severeobstruction or complete occlusion. 2. The left internal carotid artery disease is consistent with a 50-69%stenosis. However stenosis is >70% per PSV. 3. No evidence of hemodynamically significant stenosis in the commoncarotid artery bilaterally. 4. Normal, antegrade flow is noted in bilateral vertebral arteries. HISTORY: HLD, PVD, AF, COPD, TIA, HTN, CAD, CABG, CHF, Former smoker, left greattoe ulcer. - PREVIOUS STUDIES: Previous carotid ultrasound on 8-24 Rt. occluded Lt. 50-69%. DISCLAIMER: The study images and the final report will be retained in the patientchart by the Vascular Laboratory for the legally required time period. This chartconstitutes the legal record of any testing performed. ATTESTATION: I have reviewed and interpreted the pertinent images and measurements ofthis study. I attest to the conclusions in the final report that is provided above. Electronically Signed By: Cristobal HARDY OR 12/05/2024 9:26:02 AM CDT us Cristobal Dill MD IMG US PROCEDURES Final Resu lt * US Arterial Duplex Lower Extremity Left Limited (12/02/2024 1:54 PM CDT) Anatomical Region Laterality Modality Vascular Left Ultrasound 12/02/2024 1:15 PM CDT Narrative 12/05/2024 9:27 AM CDT [facility] - Department of Vascular Surgery, Vascular Laboratory [address] [place] [address] [place] Lower Extremity Arterial Duplex Report Patient Name: JAIR PENA : 1945 Study Date: 12/02/2024 1:15:57 PM Gender: M Tech: TT Location: [facility] Ref Provider: CRISTOBAL DILL Quality: Adequate Order Provider: CRISTOBAL DILL PROCEDURES: Arterial Report: Left Lower Extremity Arterial Duplex Exam. INDICATIONS: I73.9 Peripheral vascular disease, unspecified. MEASUREMENTS: Left Value Units Lt COLOR SPRAYER Dst PSV 149 cm/s Lt Profunda Prx PSV 82 cm/s Lt Superficial Femoral Prx PSV 71 cm/s Lt Superficial Femoral Mid PSV 85 cm/s Lt Superficial Femoral Dst PSV 99 cm/s Lt Pop Prx PSV 71 cm/s Lt Post Tibial Mid PSV 67 cm/s Lt Ant Tibial Mid PSV 45 cm/s Lt Peroneal Mid PSV 56 cm/s Lt Proximal Stent 60 cm/s Lt Mid Stent 110 cm/s Lt Distal Stent 102 cm/s Left Value Units FINDINGS: Performing Bailiff: Jayce Reese RVT. Left Common Femoral: The left common femoral waveform is multiphasic. Left Profunda: The left profunda waveform is multiphasic. Left Proximal Superficial Femoral Artery: The left proximal femoral artery waveform is multiphasic. (stent). Left Mid Superficial Femoral Artery: The left mid femoral artery waveform is multiphasic. (stent). Left Distal Superficial Femoral Artery: The left distal femoral artery waveform is multiphasic. (stent). Left Popliteal: The left popliteal waveform is multiphasic. (stent). Left Posterior Tibial: The left posterior tibial waveform is multiphasic. Left Anterior Tibial: The left anterior tibial waveform is multiphasic. Left Peroneal: The left peroneal artery waveform is multiphasic. CONCLUSIONS: 1. Duplex imaging of the left lower extremity [place] arteries reveals patent vessels with no flow limiting lesions identified. Flow velocities as measured above. See Ankle Brachial Index report. 2. Patent left SFA and Popliteal artery stent. HISTORY: 09/01/23 Left proximal SFA atherectomy. Left mid to distal SFA and popliteal artery lithotripsy balloon angioplasty. Left SFA and popliteal artery balloon angioplasty along with stent angioplasty. HLD, PVD, AF, COPD, TIA, HTN, CAD, CABG, CHF, Former smoker, left great toe ulcer - PREVIOUS STUDIES: Previous study on 04-08-24 Patent SFA and Popliteal stents. DISCLAIMER: The study images and the final report will be retained in the patient chart by the Vascular Laboratory for the legally required time period. This chart constitutes the legal record of any testing performed. ATTESTATION: I have reviewed and interpreted the pertinent images and measurements of this study. I attest to the conclusions in the final report that is provided above. Electronically Signed By: Cristobal HARDY OR 12/05/2024 9:25:49 AM CDT Procedure Note Cristobal Dill MD - 12/05/2024 [facility] - Department of Vascular Surgery,Vascular Laboratory [address] [place] [id number] [place] Lower Extremity Arterial Duplex Report Patient Name: JAIR PENA : 1945 Study Date: 12/02/2024 1:15:57 PM Gender: M Tech: TT Location: [facility] Ref Provider: CRISTOBAL DILL Quality: Adequate Order Provider: CRISTOBAL DILL PROCEDURES: Arterial Report: Left Lower Extremity Arterial Duplex Exam. INDICATIONS: I73.9 Peripheral vascular disease, unspecified. MEASUREMENTS: Left Value Units Lt COLOR SPRAYER Dst PSV 149 cm/s Lt Profunda Prx PSV 82 cm/s Lt Superficial Femoral Prx PSV 71 cm/s Lt Superficial Femoral Mid PSV 85 cm/s Lt Superficial Femoral Dst PSV 99 cm/s Lt Pop Prx PSV 71 cm/s Lt Post Tibial Mid PSV 67 cm/s Lt Ant Tibial Mid PSV 45 cm/s Lt Peroneal Mid PSV 56 cm/s Lt Proximal Stent 60 cm/s Lt Mid Stent 110 cm/s Lt Distal Stent 102 cm/s Left Value Units FINDINGS: Performing Bailiff: Jayce Reese RVT. Left Common Femoral: The left common femoral waveform is multiphasic. Left Profunda: The left profunda waveform is multiphasic. Left Proximal Superficial Femoral Artery: The left proximal femoral artery waveform is multiphasic. (stent). Left Mid Superficial Femoral Artery: The left mid femoral artery waveform is multiphasic. (stent). Left Distal Superficial Femoral Artery: The left distal femoral artery waveform is multiphasic. (stent). Left Popliteal: The left popliteal waveform is multiphasic. (stent). Left Posterior Tibial: The left posterior tibial waveform is multiphasic. Left Anterior Tibial: The left anterior tibial waveform is multiphasic. Left Peroneal: The left peroneal artery waveform is multiphasic. CONCLUSIONS: 1. Duplex imaging of the left lower extremity [place] arteries revealspatent vessels with no flow limiting lesions identified. Flow velocities as measured above.See Ankle Brachial Index report. 2. Patent left SFA and Popliteal artery stent. HISTORY: 09/01/23 Left proximal SFA atherectomy. Left mid to distal SFA and poplitealartery lithotripsy balloon angioplasty. Left SFA and popliteal artery balloonangioplasty along with stent angioplasty. HLD, PVD, AF, COPD, TIA, HTN, CAD, CABG, CHF, Former smoker, left greattoe ulcer - PREVIOUS STUDIES: Previous study on 04-08-24 Patent SFA and Popliteal stents. DISCLAIMER: The study images and the final report will be retained in the patientchart by the Vascular Laboratory for the legally required time period. This chartconstitutes the legal record of any testing performed. ATTESTATION: I have reviewed and interpreted the pertinent images and measurements ofthis study. I attest to the conclusions in the final report that is provided above. Electronically Signed By: Cristobal ELLIS 12/05/2024 9:25:49 AM CDT us Cristobal Dill MD IMG US PROCEDURES Final Resu lt * US DARREN (12/02/2024 1:54 PM CDT) Anatomical Region Laterality Modality Vascular N/A Ultrasound 12/02/2024 12:5 7 PM CDT Narrative 12/05/2024 9:27 AM CDT [employer] [facility] [employer] [facility] - Department of Vascular Surgery, Vascular Laboratory [address] [place] [address] Lower Extremity Arterial Doppler Report Patient Name: JAIR PENA : 1945 Study Date: 12/02/2024 12:57:00 PM Gender: M Tech: Jayce Reese RVT Location: [facility] Provider: CRISTOBAL DILL Quality: Adequate Order Provider: CRISTOBAL DILL PROCEDURES: Arterial Report: Ankle - Brachial Index Doppler exam. INDICATIONS: I73.9 Peripheral vascular disease, unspecified. MEASUREMENTS: Right Value Units Left Value Units Rt Brachial Pressure 152 mmHg Lt Brachial Pressure 155 mmHg Rt CHANNEL MARKETING SPECIALIST Pressure >254 mmHg Lt CHANNEL MARKETING SPECIALIST Pressure >254 mmHg Rt DPA Pressure >254 mmHg Lt DPA Pressure 164 mmHg Rt 1st Digit Pressure 57 mmHg Lt 1st Digit Pressure AMP mmHg Rt PT DARREN Resting N/C Lt PT DARREN Resting N/C Rt AT DARREN Resting N/C Lt AT DARREN Resting 1.06 Rt Digit/Arm Index 0.37 Lt Digit/Arm Index AMP Right Value Units Left Value Units FINDINGS: Performing Bailiff: Jayce Reese RVT. Right Posterior Tibial Artery Analysis: The posterior tibial waveform is monophasic. Right Anterior Tibial Artery Analysis: The anterior tibial waveform is monophasic. Right Digits: The right digit waveform is dampened. Left Posterior Tibial Artery Analysis: The posterior tibial waveform is multiphasic. Left Anterior Tibial Artery Analysis: The anterior tibial waveform is multiphasic. CONCLUSIONS: 1. The ankle arteries are non-compressible bilaterally which is consistent with arterial calcification thus the Ankle/Brachial Indices are not obtainable. 2. Right toe pressure is poor for wound healing (an absolute toe pressure = or < 30mmHg may be indicative of poor wound healing potential and /or rest pain). 3. Right Digit/Arm Index is abnormal (for reference, abnormal COLE is <0.6). HISTORY: History of prior intervention on 09-21-23. History of amputation of left great toe. PREVIOUS STUDIES: Previous study on 04-08-24 DARREN N/C bilateral. DISCLAIMER: The study images and the final report will be retained in the patient chart by the Vascular Laboratory for the legally required time period. This chart constitutes the legal record of any testing performed. ATTESTATION: I have reviewed and interpreted the pertinent images and measurements of this study. I attest to the conclusions in the final report that is provided above. Electronically Signed By: Cristobal HARDY OR 12/05/2024 9:26:15 AM CDT Procedure Note Cristobal Dill MD - 12/05/2024 [facility] - Department of Vascular Surgery,Vascular Laboratory [address] [place] [address] Lower Extremity Arterial Doppler Report Patient Name: JAIR PENA : 1945 Study Date: 12/02/2024 12:57:00 PM Gender: M Tech: Jayce Reese [facility] Location: [facility] Provider: CRISTOBAL DILL Quality: Adequate Order Provider: CRISTOBAL DILL PROCEDURES: Arterial Report: Ankle - Brachial Index Doppler exam. INDICATIONS: I73.9 Peripheral vascular disease, unspecified. MEASUREMENTS: Right Value Units Left Value Units Rt Brachial Pressure 152 mmHg Lt Brachial Pressure 155 mmHg Rt CHANNEL MARKETING SPECIALIST Pressure >254 mmHg Lt CHANNEL MARKETING SPECIALIST Pressure >254 mmHg Rt DPA Pressure >254 mmHg Lt DPA Pressure 164 mmHg Rt 1st Digit Pressure 57 mmHg Lt 1st Digit Pressure AMP mmHg Rt PT DARREN Resting N/C Lt PT DARREN Resting N/C Rt AT DARREN Resting N/C Lt AT DARREN Resting 1.06 Rt Digit/Arm Index 0.37 Lt Digit/Arm Index AMP Right Value Units Left Value Units FINDINGS: Performing Bailiff: Jayce Reese RVT. Right Posterior Tibial Artery Analysis: The posterior tibial waveform is monophasic. Right Anterior Tibial Artery Analysis: The anterior tibial waveform is monophasic. Right Digits: The right digit waveform is dampened. Left Posterior Tibial Artery Analysis: The posterior tibial waveform is multiphasic. Left Anterior Tibial Artery Analysis: The anterior tibial waveform is multiphasic. CONCLUSIONS: 1. The ankle arteries are non-compressible bilaterally which is consistentwith arterial calcification thus the Ankle/Brachial Indices are not obtainable. 2. Right toe pressure is poor for wound healing (an absolute toe pressure= or < 30mmHg may be indicative of poor wound healing potential and /or rest pain). 3. Right Digit/Arm Index is abnormal (for reference, abnormal COLE is<0.6). HISTORY: History of prior intervention on 09-21-23. History of amputation of left great toe. PREVIOUS STUDIES: Previous study on 04-08-24 DARREN N/C bilateral. DISCLAIMER: The study images and the final report will be retained in the patientchart by the Vascular Laboratory for the legally required time period. This chartconstitutes the legal record of any testing performed. ATTESTATION: I have reviewed and interpreted the pertinent images and measurements ofthis study. I attest to the conclusions in the final report that is provided above. Electronically Signed By: Cristobal ELLIS 12/05/2024 9:26:15 AM CDT us Cristobal Dill MD [facility] US PROCEDURES Final Resu lt * eGFR (11/17/2024 5:55 PM CDT) eGFR 68 >=60 mL/min/1. 73 m2 Comment: Interpretive Data Reference Interval Normal >/= 90 mL/min/1.73m2 Mildly decreased* 60 - 89 mL/min/1.73m2 Mildly to moderately decreased 45 - 59 mL/min/1.73m2 Moderately to severely decreased 30 - 44 mL/min/1.73m2 Severely decreased 15 - 29 mL/min/1.73m2 Kidney Failure < 15 mL/min/1.73m2 *Relative to young adult level Estimated glomerular filtration rate is determined by the 2020 CKD-EPI equation recommended by the National Kidney Foundation (A Unifying Approach to GFR Estimation: Recommendations of the NKF-ASK Task Force on Reassessing the Inclusion of Race in Diagnosing Kidney Disease, JASN 2020). The CKD-EPI equation should not be used for patients with unstable renal function and has not been validated in children and those over 70. Current interpretive data was last reviewed 2021. Blood 11/17/2024 5:55 PM CDT 11/17/2024 6:02 PM CDT Result [facility] Timo Coronado DO LAB BLOOD ORDERABLES Final Result [facility] [id number] Department [place] [address] * (ABNORMAL) Pro B-type natriuretic peptide (11/17/2024 5:55 PM CDT) NT-proBNP 1,294(H) <=450 pg/mL Comment: Interpretive Comments: A. Dyspnea in Acute Care Setting All Ages: < 300 pg/ml, acute heart failure unlikely. < 50 yrs: 300 - 450 pg/ml, further investigation warranted. > 450 pg/ml, acute heart failure likely. 50 - 74 yrs: 300 - 900 pg/ml, further investigation warranted. > 900 pg/ml, acute heart failure likely . > or = 75 yrs: 450 - 1800 pg/ml, further investigation warranted. > 1800 pg/ml, acute heart failure likely. B. Non-acute Setting < 75 yrs < 125 pg/ml, rules out heart failure. > or = 125 pg/ml, further investigation warranted. > or = 75 yrs < 450 pg/ml, rules out heart failure. > or = 450 pg/ml, further investigation warranted. - Knowledge of each individual patient's NT-proBNP range may be more useful than using similar cut-points for every patient. Please note that marked elevations in NT-proBNP levels may be observed in state other than Left Ventricular Congestive Failure, including: acute coronary syndromes, right heart strain/failure (including pulmonary embolism and cor pulmonale), critical illness, renal failure, as well as advanced age. - References: 1. Leny RG et.al. Eur Heart J. 2006:27:330-337. 2. Sandra MITCHELL, Mitzi MCKEON. J. AM Ya Cardiol: Cardiovasc Imag. 2009;2: 216- 225. Interpretive Data Last Revised Date: 2018. Blood 11/17/2024 5:55 PM CDT 11/17/2024 5:58 PM CDT Narrative [facility] - 11/17/2024 6:22 PM CDT Fax results to Dr Timo Coronado [phone] Timo Coronado DO LAB BLOOD ORDERABLES Final Result [facility] [id number] Department [place] [address] * Basic metabolic panel (11/17/2024 5:55 PM CDT) Sodium 141 135 - 145 mmol/L Potassium, pl 4.1 3.3 - 4.9 mmol/L [facility] Chloride 102 97 - 110 mmol/L [facility] CO2 29 22 - 32 mmol/L CERNER Anion gap 10 2 - 15 mmol/L [facility] BUN 19 6 - 25 mg/dL [facility] Creatinine 1.10 0.80 - 1.30 mg/dL [facility] Glucose 153 70 - 199 mg/dL [facility] Comment: Interpretive Data Fasting glucose >/= 126 mg/dl is diagnostic for diabetes. Fasting is defined as no caloric intake for at least 8 hours. Fasting glucose between 100 mg/dl to 125 mg/dl is diagnostic of prediabetes. In a patient with classic symptoms of hyperglycemia or hyperglycemic crisis, a random glucose >/= 200 mg/dl is diagnostic for diabetes. In the absence of unequivocal hyperglycemia, results should be confirmed by repeat testing. The classification and Diagnosis of Diabetes Diabetes Care 2021; 46: S19-S40. Current interpretive data was last revised 2022. Calcium 9.6 8.5 - 10.3 mg/dL [facility] Blood 11/17/2024 5:55 PM CDT 11/17/2024 5:58 PM CDT Narrative [facility] - 11/17/2024 6:22 PM CDT Fax results to Dr Timo Coronado [phone] Timo Coronado DO LAB BLOOD ORDERABLES Final Result [facility] [address] Department [place] [address] * CTA Abdominal Aorta And Bilateral Iliofemoral Runoff (03/27/2023 11:58 AM CDT) Anatomical Region Laterality Modality Body Bilateral Computed Tomogra phy 03/27/2023 5:18 PM CDT Impressions 03/30/2023 11:28 AM SHOE SALESPERSON Atherosclerotic nonaneurysmal aorta . Calcified plaque with [...] Petra Fleming M.D. Narrative 03/30/2023 11:28 AM SHOE SALESPERSON EXAMINATION: CT ANGIOGRAPHY OF THE ABDOMEN/PELVIS/LOWER EXTREMITIES [...] stenosis noted. Right popliteal artery: Proximal reconstitution [id number] is present with calcified plaque and moderate to severe distal stenosis. Left popliteal artery: Proximal reconstitution [id number] is noted with calcified plaque and moderate [...] stenosis noted. Right popliteal artery: Proximal reconstitution [id number] is present with calcified plaque and moderate to severe distal stenosis. Left popliteal artery: Proximal reconstitution [id number] is noted with calcified plaque and moderate [...] diverticulosis. Electronically signed by: Petra Fleming M.D. [facility] Pearl SOLANO IM CT PROCEDURES Final Result from Last 3 Months or Most Recently Relevant to Health Maintenance Insurance MEDICARE MEDICARE TEAMSTERS MEDICARE TRUST MEDICARE TEAMSTERS MEDICARE [place] [address] MEDICARE TEAMSTERS MEDICARE TRUST [facility] [place] [address] Advance Directives For more information, please contact: [phone] Documents on File Type Date Recorded Patient Medical Sales Consultant Expl anation ADVANCE DIRECTIVE 05/23/2023 2:26 AM [...] 3:33 PM 03/30/2023 8:36 PM Care Teams Slip Sheeter Relationship Specialty Start Date End Date Timo Coronado DO PCP - General 08/22/16 Miscellaneous, Not In File 05/08/23
--- OUTSIDE RECORDS SUMMARY | 2025-02-15 10:22 | XMS_ITS | Encounter Summary ---
Author Organization [facility] Healthcare Address [address] [place] [address] Care Team Providers Care Coater [employer]ke [employer]ings Name Role Phone Timo Coronado DO Primary Care Provider [phone]- [phone] Miscellaneous, Not In File Unavailable Unava ilable Encounter Details Date Type Department Care Team (Late st Contact Info) Description 12/24/2021 Orders Only [facility] Health Information Management [address] [place] [address] Scanning, Provider Social History Tobacco Use Types Packs/Day Years Used Date Smoking Tobacco: Former Cigarettes Q uit: 02/11/2002 Smokeless Tobacco: Never Alcohol Use Standard Drinks/Week Comments Not Currently 1 (1 standard drink = 0.6 oz pur e alcohol) N/ A beer may once per wk AUDIT-C Answer Date Recorded Q1: How often do you have a drink containing alc ohol? Monthly or less 06/11/2021 Q2: How many drinks containi ng alcohol do you have on a typical day when you are drinking? 1 or 2 06/11/2021 Q3: How often do you have si x or more drinks on one occasion? 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 Gender Identity Male 05/28/2021 12:28 PM LABORATORY COORDINATOR Sexual Orientation Not on file documented as of this encounter Plan of Treatment Not on file documented as of this encounter Procedures Procedure Name Priority Date/Time Associated Diagnosis Comments SCAN - LABS 12/24/2021 documented in this encounter Results * SCAN - LABS (12/24/2021) us Provider Scanning Final Result documented in this encounter Visit Diagnoses Not on filedocumented in this encounter Additional Health Concerns Infection Onset Date Last Indicated Resolved Time COVID: Suspected 08/13/2023 08/13/2023 08/13/2023 11:26 AM CDT documented as of this encounter Care Teams Coater Brake Linings Relationship Specialty Start Date End Date Timo Coronado DO PCP - General 08/22/16 Miscellaneous, Not In File 05/08/23 documented as of this encounter
--- OUTSIDE RECORDS SUMMARY | 2025-02-15 10:22 | XMS_ITS | Encounter Summary ---
Author Organization [facility] Address [address] [place] [id number] Care Team Providers Care Cut Off [employer] [place] Name Role Phone Timo Coronado DO Primary Care Provider [phone]- [phone] Miscellaneous, Not In File Unavailable Unava ilable Encounter Details Date Type Department Care Team (Late st Contact Info) Description 08/25/2016 Orders Only [facility] ProviderBing MD [address] [place] [address] Social History Tobacco Use Types Packs/Day Years Used Date Smoking Tobacco: Former Cigarettes Q uit: 05/25/2002 Alcohol Use Standard Drinks/Week Comments No 0 (1 standard drink = 0.6 oz pur e alcohol) Sex and Gender Information Value Date Recorded Sex Assigned at Not on file Legal 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
--- NOTE | 2025-02-15 12:03 | ED.WOUNDLAC ---
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 Patient states that he was bleeding all night long. This morning he was feeling in week. Onset (ago): day(s) (1) Extremity Location: Right: hand and Bilateral: forearm Related Data Home Medications ?Medication ?Instructions ?Recorded ?Confirmed ?Last Taken ?Type finasteride 5 mg tablet 5 mg PO DAILY 06/14/19 12/15/24 Unknown History losartan 50 mg tablet 50 mg PO DAILY 06/14/19 12/15/24 10/30/24 History metoprolol tartrate 25 mg tablet 25 mg PO BID 11/08/19 12/15/24 10/30/24 History amlodipine 10 mg tablet 5 mg PO DAILY 11/04/21 12/15/24 10/30/24 History clopidogrel 75 mg tablet 75 mg PO DAILY 11/04/21 12/15/24 10/30/24 History apixaban 5 mg tablet (Eliquis) 5 mg PO BID 06/10/23 12/15/24 10/30/24 History atorvastatin 20 mg tablet 80 mg PO DAILY hyperlipidemia 11/15/24 12/15/24 Unknown History Allergies Allergy/AdvReac Type Severity Reaction Status Date / Time No Known Drug Allergies Allergy Unknown na Verified 12/15/24 08:25 Review of Systems Review of Systems: All systems reviewed & are unremarkable except as noted in HPI and below Constitutional: Constitutional: Reports no additional constitutional complaints Eyes: Eyes: Reports no additional eye complaints ENT: Reports system reviewed and no additional complaints, except as documented Cardiovascular: Cardiovascular: Reports no additional cardiovascular complaints Respiratory: Respiratory: Reports no additional respiratory complaints Gastrointestinal: Gastrointestinal: Reports no additional gastrointestinal complaints Genitourinary: Genitourinary: Reports no additional male genitourinary complaints Musculoskeletal: Musculoskeletal: Reports no additional musculoskeletal complaints Neurologic: Reports system reviewed and no additional complaints, except as documented Psychiatric: Psychiatric: Reports no additional psychiatric complaints Endocrine: Endocrine: Reports no additional endocrine complaints PMFSH Past Medical History Medical History Amputation toe Hypertension CKD (chronic kidney disease) stage 3, GFR 30-59 ml/min Coronary artery disease Elevated liver enzymes CHF (congestive heart failure) Atrial fibrillation COPD (chronic obstructive pulmonary disease) Surgical History Surgical History H/O aortic valve replacement Family History Family History Father CAD (coronary artery disease) Hypertension Parkinson disease Mother CAD (coronary artery disease) Hypertension Sibling CAD (coronary artery disease) Hypertension Mother Hypertension Acute myocardial infarction Father Family history of coronary artery disease Social History Social History (Updated 12/15/24 @ 08:27 by Norma Byrd) Social History: Caffeine-coffee Smoking packs per day: 1 Smoking cigarettes per day: 20.0 Years smoked: 35 Smoking pack-years: 35.00 Smoking status: Former smoker Smoking end date: 05/25/19 Alcohol intake: current Substance use: never Substance use type: does not use Do You Feel Safe in your Home?: Yes Lack of Transportation: No Lack of Food: Never True Current Housing: I Have Housing Concerned About Future Housing: No Difficulty Paying Gas/Electric Bills: No Difficulty Paying for Meds: No Currently Unemployed: No Education: High School Diploma/GED Difficulty w/ Childcare or Family Care: No Spiritual care concerns: No Exam Narrative: GENERAL: Well-appearing, well-nourished, and in no acute distress. HEAD: Normocephalic, atraumatic. EYES: PERRLA and EOMI. ENT: Nares clear, no rhinorrhea or epistaxis. Mucous membranes moist. NECK: Supple. CHEST: Clear to auscultation. No respiratory distress. HEART: Regular rate and rhythm. No murmur heard. Normal peripheral pulses. EXTREMITIES: Normal range of motion. No edema. has active bleeding from the right forearm and wrist and the left fore arm SKIN: Warm, dry, no rash. NEURO: No focal deficits. Alert and oriented x3. PSYCH: Normal mood and affect. Course Vital Signs Vital signs: Vital Signs Temperature 36.8 C 02/15/25 09:29 Pulse Rate 60 02/15/25 09:29 Respiratory Rate 16 02/15/25 09:29 Blood Pressure 162/62 H 02/15/25 09:29 Pulse Oximetry 100 02/15/25 09:29 Oxygen Delivery Nasal Cannula 02/15/25 09:29 Oxygen Flow Rate 2.5 02/15/25 09:29 Temperature 36.8 C 02/15/25 09:29 Pulse Rate 60 02/15/25 09:29 Respiratory Rate 16 02/15/25 09:29 Blood Pressure 162/62 H 02/15/25 09:29 Pulse Oximetry 100 02/15/25 09:29 Oxygen Delivery Nasal Cannula 02/15/25 09:29 Oxygen Flow Rate 2.5 02/15/25 09:29 Procedures Other Procedure Procedure 1: Other Procedure: Wound management Right fore arm Informed pt about the procedure 2% lido with epi given about 5 ml given locally cauterized with multiple silver nitrate sticks and eventually had to put gauze soaked with TXA , Right hand 2% lido with epi given locally cauterized with silver nitrate sterile coband dressing applied Left forearm 2%Lido with epi given locally , cauterized the bleeding areas with silver nitrate stick Tolerated well Bleeding stopped all areas MDM - Wound/Laceration Differential Diagnosis Differential diagnosis: Likely other (post op bleeding) Discharge Plan Discharge Clinical Impression: Post-op bleeding Qualifiers: Surgical complication system/body Area: skin Procedure type: dermatologic Qualified Code(s): L76.21 - Postprocedural hemorrhage of skin and subcutaneous tissue following a dermatologic procedure Patient Disposition: Home Condition: Stable Instructions: Antibiotic Form, Acute Wounds (ED) Additional Instructions: Keep the dressing on for 24 hours. Hold your blood thinners for a day. Patient Language: Kyrgyz Prescriptions: No Action finasteride 5 mg tablet 5 mg PO DAILY losartan 50 mg tablet 50 mg PO DAILY amlodipine 10 mg tablet 5 mg PO DAILY atorvastatin 20 mg tablet 80 mg PO DAILY furosemide 20 mg tablet 60 mg PO QAM Qty: 90 3RF metoprolol tartrate 25 mg tablet 25 mg PO BID Rx Instructions: 2 tablets BID clopidogrel 75 mg tablet 75 mg PO DAILY Eliquis 5 mg tablet 5 mg PO BID fluticasone fur. 100 mcg-umeclid 62.5 mcg-vilant 25 mcg inhalat.powder 100-62.5-25 mcg blister with device 0RF albuterol sulfate 90 mcg/actuation HFA aerosol inhaler 1 - 2 inh inhalation Q4-6H PRN (Reason: shortness of breath or wheezing) Qty: 8.5 2RF Follow-up/Referrals: Timo Coronado DO [Primary Care Provider, Internal Medicine] Time of Disposition: 12:06
[2025-02-15 12:10] VITALS: BP 151/66; PULSE 62; RESP 15; O2SAT 100
--- NOTE | 2025-02-15 12:41 | PC.NURSE ---
arms wrapped and cleansed. daughter here with O2.
== END 2025-02-15 12:43 | disposition home or self-care (01) ==
PROVIDERS: Emergency Provider Family Medicine; PCP Internal Medicine
DX: L76.21 Postprocedural hemorrhage of skin and subcutaneous tissue following a dermatologic procedure (principal); I48.91 Unspecified atrial fibrillation; I13.0 Hypertensive heart and chronic kidney disease with heart failure and stage 1 through stage 4 chronic kidney disease, or unspecified chronic kidney disease; N18.30 Chronic kidney disease, stage 3 unspecified; I50.9 Heart failure, unspecified; J44.9 Chronic obstructive pulmonary disease, unspecified; Z95.2 Presence of prosthetic heart valve; Z87.891 Personal history of nicotine dependence; Z89.429 Acquired absence of other toe(s), unspecified side; Z79.01 Long term (current) use of anticoagulants; Z79.02 Long term (current) use of antithrombotics/antiplatelets; Z79.899 Other long term (current) drug therapy; Y84.8 Other medical procedures as the cause of abnormal reaction of the patient, or of later complication, without mention of misadventure at the time of the procedure
CPT/HCPCS: 12001; 99283; J2004

== ENCOUNTER 2025-02-21 10:07 | Outpatient (CLI) | payer MEDICARE, SELFPAY ==
--- OUTSIDE RECORDS SUMMARY | 2025-02-21 10:54 | XMS_ITS | Clinical Summary ---
Author Organization [facility] Address [address] [place] [address] Care Team Providers Care Software Applications Developer Name Role Phone Unavailable Primary Care Provider [...]
--- OUTSIDE RECORDS SUMMARY | 2025-02-21 10:54 | XMS_ITS | Clinical Summary ---
Author Organization [facility] [address] Address [address] [place] [address] Care Team Providers Care Transplanter Name Role Phone Timo Coronado DO Primary Care Provider +1- [phone] Miscellaneous, Not In File Unavailable Unava ilable Allergies No known active allergies Medications TRELEGY ELLIPTA 100-62.5-25 mcg blister with device Inhale 1 puff daily 08/24/19 19 Active finasteride (PROSCAR) 5 mg tablet Take [...] 4 (four) hours as needed for pain 05/08/[address] (PROTONIX) 40 mg EC tabletIndicatio ns:Stress Ulcer Prophylaxis Take 1 tablet (40 mg total) by mouth daily 05/09/20 23 Active Additional Information Patient not taking.Reported on 02/10/2025 amLODIPine (NORVASC) 10 mg tablet Take 1 tablet (10 mg total) by mouth daily 90 tablet 2 05/26/19 25 026 Active furosemide (LASIX) 20 mg tablet Take 2 tablets (40 mg total) by mouth daily 180 tablet 1 08/16/19 25 Active clopidogreL (PLAVIX) 75 mg tablet Take 1 tablet (75 mg total) by mouth daily 90 tablet 2 09/08/19 25 Active apixaban (Eliquis) 5 mg tablet Take 1 tablet (5 mg total) by mouth every 12 (twelve) hours 60 tablet 6 09/13/19 25 Active losartan (COZAAR) 50 mg tablet Take 1 tablet (50 mg total) by mouth daily 90 tablet 2 10/26/19 25 Active Additional Information Patient not taking.Reported on 02/10/2025 metoprolol tartrate (LOPRESSOR) 25 mg immediate release tablet Take 1 tablet by mouth twice daily 180 tablet 01/04/20 25 Active atorvastatin (LIPITOR) 80 mg tablet TAKE 1 TABLET BY MOUTH ONCE DAILY AT BEDTIME 90 tablet 1 02/22/20 25 Active atorvastatin (LIPITOR) 80 mg tablet TAKE 1 TABLET BY MOUTH ONCE DAILY AT BEDTIME 90 tablet 1 08/31/19 25 025 Discontinued Active Problems Problem Noted Date Diagnosed Date [...] 05/01/2023 Assessment & Plan (05/07/2023 6:43 PM OYSTER GRADER): Mr. Pena is a 78 yo M [...] (10/25/2018): Added automatically from request for surgery [id number] Pacemaker 10/04/2018 Overview (12/14/2018): [employer] DDD Quadra Allure [id number] BI-V Pacemaker implanted for SSS/Afib on 10/04/18-[facility] [place] AV Node Ablation 11/09/2018-Mario. BUTLER (dyspnea on exertion) 01/12/2018 Nonrheumatic aortic valve stenosis 02/11/2017 Primary hypertension 02/11/2017 Assessment & Plan (07/31/2023 1:27 PM OYSTER GRADER): Stable continue losartan 50 mg. PVD (peripheral vascular disease) 02/11/2017 Obstructive sleep apnea syndrome 08/05/2016 Overview (10/17/2016): MAGDALENE (obstructive sleep apnea) [facility] current use of anticoagulant therapy 0 12/21/2015 Overview (08/29/2016): Chronic anticoagulation Atypical chest pain 12/07/2015 Dyslipidemia 12/07/2015 Assessment & Plan (07/31/2023 1:28 PM OYSTER GRADER): Stable continue Lipitor 80 mg. RBBB 12/07/2015 Stenosis of carotid artery 12/05/2014 Assessment & Plan (07/31/2023 1:27 PM OYSTER GRADER): Occlusion of right internal carotid artery. Left [...] (08/29/2016): Disorder of artery Coronary arteriosclerosis in [place] artery 05/09 Overview (08/29/2016): Coronary arteriosclerosis in [place] artery Encounters Date Type Department Care Team Description 02/10/2025 1:45 PM CDT Office Visit [facility] Cardiology [address] [place] [phone] Parveen Vásquez MD Chronic diastolic heart failure (HCC) (Primary Dx); Coronary arteriosclerosis in [place] artery; Hyperlipidemia LDL goal <70; Persistent atrial fibrillation (HCC); S/P TAVR (transcatheter aortic valve replacement); PVD (peripheral vascular disease) 12/20/2024 8:30 AM CDT Ancillary Procedure [facility] Cardiology [address] [facility] [address] [place] [phone] Persistent atrial fibrillation (HCC); SSS (sick sinus syndrome) ([facility]); H/O cardiac radiofrequency ablation; Pacemaker 12/02/2024 1:45 PM CDT Ancillary Procedure [facility]ascular Lab [address] [facility] Medical Office Building [address] [place] [phone] Bilateral carotid artery stenosis 12/02/2024 1:00 PM CDT Ancillary Procedure [facility] Medicine Vascular Lab [address] [facility] Medical Office Building [address] [phone] PVD (peripheral vascular disease) from Last 3 Months Immunizations Immunization Administration [...] N/ A beer may once per wk [facility] Utilities Answer Date Recorded In the past 12 months has [employer], oil, or water [employer] threatened to shut off services in your home? No 08/13/2023 Social Connection and Isolation Panel Answer Date Recorded In a typical week, how many times do you talk on the phone with family, friends, or neighbors? Once a week 08/13/2023 How often do you get together with friends or re latives? Once a week 08/13/2023 How often do you attend sabianist or lutheran serv ices? Never 08/13/2023 Do you belong to any clubs o r organizations such as sabianist groups, unions, fraternal or athletic groups, or [...] place to sleep or slept in a half-way (including now)? No 08/13/2023 Personal Safety Answer Date Recorded Have you ever been in or are you currently in a harmful physical or emotional relationship or is someone making you feel afraid or unsafe? Denies 08/13/2023 Sex and Gender Information Value Date Recorded Sex Assigned at Not on file Legal Sex Male 8:02 AM OYSTER GRADER Gender Identity Male 05/28/2021 12:28 PM OYSTER GRADER Sexual Orientation Not on file Obstetrics History Last Filed Vital Signs Vital Sign Reading Time Taken Comments Blood Pressure 124/74 02/10/2025 1:55 PM CDT Pulse 61 02/10/2025 1:55 PM CDT Temperature 35.9 C (96.7 F) 04/11/2024 11:08 AM OYSTER GRADER Respiratory Rate 20 01/08/2024 2:52 PM CDT [...] 04/24/2023 Fall Risk Assessment 09/10/2024 09/11/2023, 02/24/20 23 Influenza Vaccine (#1) 2025 , 03/13/2020, 03/09/2019, Additional history exists Abdominal Aortic Aneurysm (A AA) Screen Completed 03/27/2023 Medical Devices Implanted Type Area Wire Bender Device Identifier Shelf Expiration Date Model / Serial / Lot Seiratherm Angio-Seal Vip 6fr Closere Device [id number] - [id number] - [id number] Implanted:Qty: 1 on 05/04/2023 by Pop Yoon MD at [facility] Collagen Right: Common Femoral Artery Seiratherm 11/03/2023 [id number] / [id number] / [id number] [employer] 2088tc/58 Tendril Sts 6fr 58cm Is-1 Connector Active Fixation Bipolar Soft - [id number] - [id number] Implanted:Qty: 1 on 10/04/2018 by Hussein Martin MD at [facility] Lead [employer] [id number] 06/24/2021 2088TC/ 58 / [id number] / [employer] 1458q/86 Quartet 5fr [id number] 4 Electrode Is-4 Connector Steerable Tip - [id number] - [id number] Implanted:Qty: 1 on 10/04/2018 by Hussein Martin MD at [facility] Lead [employer] [id number] 08/22/2021 1458Q/8 6 / [id number] / [employer] [id number] Pacemaker Quadra Allure Mp Rf Rail Flaw Detector Operator-P Mri - [id number] - [id number] Implanted:Qty: 1 on 10/04/2018 by Hussein Martin MD at [facility] Pacemaker [employer] [id number] 03/24/2020 [id number] / [id number] / Orellana [employer] Valve Heart 26mm Colette 3 Transcatheter 1023szu09f - [id number] - [id number] Implanted:Qty: 1 on 05/04/2023 by Pop Yoon MD at [facility] Prosthetic Valve N/A: Aortic Valve [employer] 01/12/2026 [id number] / [id number] / Medtronic Inc Visi-Pro 8mm 17mm 135cm Radiopaque Balloon Expand Radial Strength - [id number] Implanted:Qty: 1 on 06/14/[address] MD at [facility] Stent Left: Subclavian Medtronic Inc 01/02/2024 PXB35-0 01-08-13 5 / / [id number] [employer] Device Clsr Perclose Prostyle Sut-Mediatd Closure-Repair Sys 33751-81 - [id number] - [id number] Implanted:Qty: 1 on 05/04/2023 by Pop Yoon MD at [facility] Vascular Closure Device Left: Common Femoral Artery [employer] 09/21/2024 78960-0 3 / [id number] / [id number] Access Closure Inc Device 10ml 5fr Closure Mynx Control 2 Mode Balloon Catheter [id number] - [id number] Implanted:Qty: 1 on 03/20/[address] MD at [facility] Access Closure Inc 04/23/2024 [id number] / / [id number] iPositionva [facility] Device Closure Vascade Od5 Fr Femoral Artery [id number] - [id number] Implanted:Qty: 1 on 08/27/[address] MD at [facility] 04/07/2025 700-500 DX-05U / / [id number] Medtronic Inc Everflex Entrust 6mm 40mm 120cm Self Expand Triaxial Low Profile - [id number] Implanted:Qty: 1 on 09/01/2023 by Cristobal Dill MD at [facility] [employer] Inc 07/13/2025 EVD35-0 6-040-1 20 / / [id number] Cardiva Medical [facility] Device Vascular Closure Femoral Artery Bioabsorbable Dual Method Vascade 6-7fr Collagen 611-211n-96f - [id number] Implanted:Qty: 1 on 09/01/2023 by Cristobal Dill MD at [facility] 04/22/2025 700-580 I-05U / / [id number] [employer] Supera 5.5mm 6fr 150mm 120cm Otw Self Expandable Closed End Braid F-87-347-120-P6 - [id number] Implanted:Qty: 1 on 09/01/2023 by Cristobal Dill MD at [facility] [employer] 04/23/2024 S-55-15 0-120-P 6 / / [id number] [employer] Supera 6mm 6fr 100mm 120cm Peripheral Stent Vascular A-66-398-120-P6 - [id number] Implanted:Qty: 1 on 09/01/2023 by Cristobal Dill MD at [facility] [employer] 05/24/2024 S-60-10 0-120-P 6 / [id number] Medtronic Inc Everflex Entrust 6mm 150mm 120cm Self Expand Triaxial Low Profile - [id number] Implanted:Qty: 1 on 09/01/2023 by Cristobal Dill MD at [facility] [employer] Inc 11/20/2025 EVD35-0 6-150-1 20 / / [id number] Procedures Procedure Name Priority Date/Time Associated Diagnosis [...] 1:54 PM CDT PVD (peripheral vascular disease) CTA ABDOMINAL AORTA AND BILATERAL ILIOFEMORAL RUNOFF IP Routine 03/27/2023 11:58 AM CDT from Last 3 Months or Most Recently Relevant to Health Maintenance Results * DEVICE CHECK - REMOTE (12/20/2024 9:35 AM CDT) Anatomical Region Laterality Modality Other Narrative 01/19/2025 4:[address] [facility] DDD Quadra Allure [id number] BI-V Pacemaker implanted for SSS/Afib on 10/04/18-Mario [...] report. Office pacemaker follow up: 6 months [place] remote f/u 03/21/25. Eugene Calix RN Parveen Vásquez MD [facility] Final Result * Carotids Duplex Bilateral (12/02/2024 1:54 PM CDT) Anatomical Region Laterality Modality Vascular Bilateral Ultrasound 12/02/2024 1:01 PM CDT Narrative 12/05/2024 9:27 AM CDT [facility] - Department of Vascular Surgery, Vascular Laboratory [address] [place] [address] Carotid Duplex Ultrasound Report Patient Name: JAIR PENA : 1945 (79y 9m) Study Date: 12/02/2024 1:01:39 PM Gender: M Tech: TT Location: [facility] Provider: CRISTOBAL DILL Quality: Adequate Order Provider: [...] LT VERT PSV 81 cm/sec FINDINGS: Performing Tank House Operator: Jayce Reese RVT. Rt Common Carotid Artery: [...] - PREVIOUS STUDIES: Previous carotid ultrasound on 01-07-24 Rt. occluded Lt. 50-69%. DISCLAIMER: The study [...] Procedure Note Cristobal Dill MD - 12/05/2024 [facility] - Department of Vascular Surgery,Vascular Laboratory [address] [place] [address] Carotid Duplex Ultrasound Report Patient Name: JAIR PENA : 1945 (79y 9m) Study Date: 12/02/2024 1:01:39 PM Gender: M Tech: TT Location: [facility] Ref Provider: CRISTOBAL DILL Quality: Adequate [...] LT VERT PSV 81 cm/sec FINDINGS: Performing Tank House Operator: Jayce eRese RVT. Rt Common Carotid Artery: The plaque [...] PM CDT Narrative 12/05/2024 9:27 AM CDT [facility] - Department of Vascular Surgery, Vascular Laboratory [address] [place] [address] [place] Lower Extremity Arterial Duplex Report Patient Name: JAIR PENA : 1945 Study Date: 12/02/2024 1:15:57 PM Gender: M Tech: TT Location: [facility] Provider: CRISTOBAL DILL Quality: Adequate Order Provider: CRISTOBAL DILL PROCEDURES: Arterial Report: Left Lower Extremity Arterial Duplex Exam. INDICATIONS: I73.9 Peripheral vascular disease, unspecified. MEASUREMENTS: Left Value Units Lt COMMERCIAL DRONE PILOT Dst PSV 149 cm/s Lt Profunda Prx [...] 102 cm/s Left Value Units FINDINGS: Performing Tank House Operator: Jayce Reese RVT. Left Common Femoral: The [...] Duplex imaging of the left lower extremity [place] arteries reveals patent vessels with no flow [...] is provided above. Electronically Signed By: Cristobal HARYD OR 12/05/2024 9:25:49 AM CDT Procedure Note Cristobal Dill MD - 12/05/2024 [facility] - Department of Vascular Surgery,Vascular Laboratory [address] [place] [address] [place] Lower Extremity Arterial Duplex Report Patient Name: JAIR PENA : 1945 Study Date: 12/02/2024 1:15:57 PM Gender: M Tech: TT Location: [facility] Ref Provider: CRISTOBAL DILL Quality: Adequate Order Provider: CRISTOBAL DILL PROCEDURES: Arterial Report: Left Lower Extremity Arterial Duplex Exam. INDICATIONS: I73.9 Peripheral vascular disease, unspecified. MEASUREMENTS: Left Value Units Lt COMMERCIAL DRONE PILOT Dst PSV 149 cm/s Lt Profunda Prx [...] 102 cm/s Left Value Units FINDINGS: Performing Tank House Operator: Jayce Reese RVT. Left Common Femoral: The [...] Duplex imaging of the left lower extremity [place] arteries revealspatent vessels with no flow limiting [...] Cristobal HARDY OR 12/05/2024 9:25:49 AM CDT us Cristobal Dill MD IMG US PROCEDURES Final Resu lt * US DARREN (12/02/2024 1:54 PM CDT) Anatomical Region Laterality Modality Vascular N/A Ultrasound 12/02/2024 12:5 7 PM CDT Narrative 12/05/2024 9:27 AM CDT [facility] - Department of Vascular Surgery, Vascular Laboratory [address] [place] [address] Lower Extremity Arterial Doppler Report Patient Name: JAIR PENA : 1945 Study Date: 12/02/2024 12:57:00 PM Gender: M Tech: Jayce Reese RVT Location: [facility] Provider: CRISTOBAL DILL Quality: Adequate Order Provider: CRISTOBAL DILL PROCEDURES: Arterial Report: Ankle - Brachial Index Doppler exam. INDICATIONS: I73.9 Peripheral vascular disease, unspecified. MEASUREMENTS: Right Value Units Left Value Units Rt Brachial Pressure 152 mmHg Lt Brachial Pressure 155 mmHg Rt TUMBLER TENDER Pressure >254 mmHg Lt TUMBLER TENDER Pressure >254 mmHg Rt DPA Pressure >254 mmHg Lt DPA Pressure 164 mmHg Rt 1st Digit Pressure 57 mmHg Lt 1st Digit Pressure AMP mmHg Rt PT DARREN Resting N/C Lt PT DARREN Resting N/C Rt AT DARREN Resting N/C Lt AT DARREN Resting 1.06 Rt Digit/Arm Index 0.37 Lt Digit/Arm Index AMP Right Value Units Left Value Units FINDINGS: Performing Tank House Operator: Jayce Reese RVT. Right Posterior Tibial Artery [...] Procedure Note Cristobal Dill MD - 12/05/2024 [facility] - Department of Vascular Surgery,Vascular Laboratory [address] [place] [address] Lower Extremity Arterial Doppler Report Patient Name: JAIR PENA : 1945 Study Date: 12/02/2024 12:57:00 PM Gender: M Tech: Jayce Reese [facility] Location: [facility] Ref Provider: CRISTOBAL DILL Quality: Adequate Order Provider: CRISTOBAL DILL PROCEDURES: Arterial Report: Ankle - Brachial Index Doppler exam. INDICATIONS: I73.9 Peripheral vascular disease, unspecified. MEASUREMENTS: Right Value Units Left Value Units Rt Brachial Pressure 152 mmHg Lt Brachial Pressure 155 mmHg Rt TUMBLER TENDER Pressure >254 mmHg Lt TUMBLER TENDER Pressure >254 mmHg Rt DPA Pressure >254 mmHg Lt DPA Pressure 164 mmHg Rt 1st Digit Pressure 57 mmHg Lt 1st Digit Pressure AMP mmHg Rt PT DARREN Resting N/C Lt PT DARREN Resting N/C Rt AT DARREN Resting N/C Lt AT DARREN Resting 1.06 Rt Digit/Arm Index 0.37 Lt Digit/Arm Index AMP Right Value Units Left Value Units FINDINGS: Performing Tank House Operator: Jayce Reese RVT. Right Posterior Tibial Artery [...] Cristobal HARDY OR 12/05/2024 9:26:15 AM CDT us Cristobal Dill MD IMG US PROCEDURES Final Resu lt * CTA Abdominal Aorta And Bilateral Iliofemoral Runoff (03/27/2023 11:58 AM CDT) Anatomical Region Laterality Modality Body Bilateral Computed Tomogra phy 03/27/2023 5:18 PM CDT Impressions 03/30/2023 11:28 AM OYSTER GRADER Atherosclerotic nonaneurysmal aorta . Calcified plaque with [...] Petra Fleming M.D. Narrative 03/30/2023 11:28 AM OYSTER GRADER EXAMINATION: CT ANGIOGRAPHY OF THE ABDOMEN/PELVIS/LOWER EXTREMITIES [...] stenosis noted. Right popliteal artery: Proximal reconstitution [id number] is present with calcified plaque and moderate to severe distal stenosis. Left popliteal artery: Proximal reconstitution zoimz-luo-awah is noted with calcified plaque and moderate [...] stenosis noted. Right popliteal artery: Proximal reconstitution pculf-[id number] is present with calcified plaque and moderate to severe distal stenosis. Left popliteal artery: Proximal reconstitution narda-zhh-uigh is noted with calcified plaque and moderate [...] diverticulosis. Electronically signed by: Petra Fleming M.D. [facility] PARK WORKER SUPERVISOR IM CT PROCEDURES Final Result from Last 3 Months or Most Recently Relevant to Health Maintenance Insurance MEDICARE MEDICARE TEAMSTERS MEDICARE TRUST MEDICARE TEAMSTERS MEDICARE TRUST MEDICARE TEAMSTERS MEDICARE TRUST Advance Directives For more information, please contact: [phone] Documents on File Type Date Recorded Patient Corporate Technical Recruiter Expl anation ADVANCE DIRECTIVE 05/23/2023 2:26 AM [...] 3:33 PM 03/30/2023 8:36 PM Care Teams Transplanter Relationship Specialty Start Date End Date Timo Coronado, PCP - General 08/22/16 Miscellaneous, Not In File 05/08/23
--- OUTSIDE RECORDS SUMMARY | 2025-02-21 10:54 | XMS_ITS | Encounter Summary ---
Author Organization [facility] Address [address] [place] [address] Care Team Providers Care Marine Service Manager Name Role Phone Timo Coronado DO Primary Care Provider +1- [phone] Miscellaneous, Not In File Unavailable Unava ilable Encounter Details Date Type Department Care Team (Late st Contact Info) Description 08/25/2016 Orders Only [facility] ProviderBing MD [address] [place] [address] Social History Tobacco Use Types Packs/Day Years Used Date Smoking Tobacco: Former Cigarettes Q uit: 05/25/2002 Alcohol Use Standard Drinks/Week Comments No 0 (1 standard drink = 0.6 oz pur e alcohol) Sex and Gender Information Value Date Recorded Sex Assigned at Not on file Legal Sex Male 8:02 AM MANAGER BUILDING Gender Identity Male 05/28/2021 12:28 PM MANAGER BUILDING Sexual Orientation Not on file documented as [...] documented as of this encounter Care Teams Marine Service Manager Relationship Specialty Start Date End Date Timo Coronado DO PCP - General 08/22/16 Miscellaneous, Not In File 05/08/23 documented as of this encounter
--- OUTSIDE RECORDS SUMMARY | 2025-02-21 10:54 | XMS_ITS | Encounter Summary ---
Author Organization [facility] Address [address] [place] [address] Care Team Providers Care Print Machine Operator Name Role Phone Timo Coronado DO Primary Care Provider +1- [phone] Miscellaneous, Not In File Unavailable Unava ilable Encounter Details Date Type Department Care Team (Late st Contact Info) Description 12/24/2021 Orders Only [facility] Health Information Management [address] [place] [address] Scanning, Provider Social History Tobacco Use Types [...] on file Legal Sex Male 8:02 AM LICENSED MORTICIAN Gender Identity Male 05/28/2021 12:28 PM LICENSED MORTICIAN Sexual Orientation Not on file documented as [...] documented as of this encounter Care Teams Print Machine Operator Relationship Specialty Start Date End Date Timo Coronado DO PCP - General 08/22/16 Miscellaneous, Not In File 05/08/23 documented as of this encounter
--- OUTSIDE RECORDS SUMMARY | 2025-02-21 10:54 | XMS_ITS | Clinical Summary ---
Author Organization [facility] Address [address] [place] [address] Care Team Providers Care Box Icer Name Role Phone Unavailable Primary Care Provider Unavailabl e Source Comments [facility],non-owned Affiliates and Associated Physician Practices is amultiple site organization consisting of ambulatory clinics and hospital sitesin [place], [place], [place] and [place]. This disclosure is being madepursuant to the Care Everywhere program and may not contain all information available regarding this patient. Last updated 18.[facility] Allergies No known active allergies Social History Tobacco Use Types Packs/Day Years Used Date Smoking Tobacco: Never Assessed Sex and Gender Information Value Date Recorded Sex Assigned at Not on file Legal Sex Male 5:26 AM LIVESTOCK TRUCKER Gender Identity Not on file Sexual Orientation [...]
--- OUTSIDE RECORDS SUMMARY | 2025-02-21 10:54 | XMS_ITS ---
Author Name Steffany Neely Address Unknown Organization [place], [place] ([facility]) Care Team Providers Care Manager Hiv Name Role Phone Unavailable Primary Care Physician Unavailab le History Of Present Illness This is an 80 year old male who is being seen for foot evaluation. Additional HPI Comments: Here for nail care Medications Medication Generic Name RxNorm Strength Strength Unit Route Dose Dose Form Frequency Date Started Date Ended Status Indication Sig ciclopirox ciclopir ox 126431 0.77 % Topica l cream 08/09/19 25 active Appl y to affe cted area of feet once or twic e helga y Problems Problem Code Type Status Date of Diagnosis Date of Resolution Onychomycosis caused by dermatophyte (disorder) 851532652( SNOMED) Diagnosis active 02/20/2025 Onychomycosis caused by dermatophyte (disorder) 363301938( SNOMED) Diagnosis active 11/08/2024 Onychomycosis caused by dermatophyte (disorder) 040702871( SNOMED) Diagnosis active 08/08/2024 Tinea pedis (disorder) 5631177(SN OMED) Diagnosis active 08/08/2024 Onychomycosis caused by dermatophyte (disorder) 293695826( SNOMED) Diagnosis active 05/03/2024 Peripheral vascular disease (disorder) 517363943( SNOMED) Diagnosis active 05/03/2024 Coronary arteriosclerosis (disorder) 96307643(S NOMED) Problem active History of hypertension (situation) 525384087( SNOMED) Problem active Hypercholesterolemia (disorder) 52309939(S NOMED) Problem active History of clinical finding in subject (situation) 064561272( SNOMED) Problem active Chronic obstructive pulmonary disease (disorder) 16871824(S NOMED) Problem active Results No data Encounters Service provided at [place], [place] ([facility]), [address] [facility] [address], [place], [place] [id number]. Office phone number is [phone]. Encounter Diagnosis Location Date / Time Type Onychomycosis (B35.1) [place], [place] ([address] 0 02/20/2025 18:30:00 UTC NI Reason For Referral No data Procedures Procedure Date Debridement of nail (procedure) 02/21/20 25 12:00 am UTC Debridement of nail (procedure) 11/09/19 25 12:00 am UTC Debridement of nail (procedure) 08/09/19 25 12:00 am UTC Antifungal therapy (procedure) 4 12:00 am UTC Debridement of nail (procedure) 05/03/20 24 12:00 am UTC Documentation of past medical history (p rocedure) Documentation of past medical history (p rocedure) Documentation of past medical history (p rocedure) Documentation of past medical history (p rocedure) History of operative procedure on foot ( situation) Documentation of past medical history (p rocedure) Review Of Systems No Data Assessment 1.OnychomycosisToenail Debridement With Findings: Instruments - Dremel rotary ken and clippers; Other Instruments - By about 30%. Plan of Care Future visit for 04/24/2025 - Follow up in 63 days Code Detail Instructions 124824 ciclopirox 0.77 % topical cream Apply to affected area of feet once or twice daily Instructions No Data Social History Code Activity Start Date End Date 3289236 (SNOMED) Former smoker Sex male Sexual orientation Don't Know Gender identity Unspecified Vital Signs No data
[2025-02-21 13:06] LABS: Hematocrit 38.0 % (42.0-52.0); Hemoglobin 12.5 g/dL (14.0-18.0); Immature Granulocyte Percent A 1.0 % (0-0.5); Lymphocytes Absolute Auto 1.60 K/mm3 (0.9-3.2); Mean Corpuscular HGB Conc 32.9 g/dl (32-36); Mean Corpuscular Hemoglobin 31.4 pg (26-34); Mean Corpuscular Volume 95.5 fl (80-100); Nucleated Red Blood Cells Absolute Auto 0.000 K/mm3 (0.0-0.012); Nucleated Red Blood Cells Perc 0.0 % (0.0-0.2); Platelet Count Result 252 k/mm3 (150-375); Red Blood Count 3.98 M/mm3 (4.6-6.20); White Blood Count 9.9 K/mm3 (4.5-10.0)
[2025-02-21 13:20] LABS: Alanine Aminotransferase 38 U/L (6-50); Albumin Level 4.1 g/dL (3.5-5.1); Alkaline Phosphatase 158 U/L (38-126); Anion Gap 8 mmol/L (4-12); Aspartate Amino Transferase 81 U/L (17-59); Bilirubin,Total 0.7 mg/dL (0.2-1.3); Blood Urea Nitrogen 21 mg/dL (9-20); Calcium 9.3 mg/dL (8.4-10.2); Carbon Dioxide 27 mmol/L (22-30); Chloride 102 mmol/L (98-107); Estimated Glomerular Filt Rate 55; Glucose 100 mg/dL (65-110); Potassium 4.1 mmol/L (3.4-5.0); Sodium 137 mmol/L (137-145); Total Protein 7.9 g/dL (6.3-8.2)
[2025-02-21 13:47] LABS: Ferritin 127.00 ng/mL (11.1-264)
[2025-02-21 14:35] LABS: Vitamin B12 463.0 pg/mL (239-931)
== END 2025-02-21 10:08 | disposition home or self-care (01) ==
LOC: ANHGOSHLAB 10:08
PROVIDERS: PCP Internal Medicine; Visit Provider Internal Medicine
DX: D64.9 Anemia, unspecified (principal); I48.0 Paroxysmal atrial fibrillation; I25.10 Atherosclerotic heart disease of native coronary artery without angina pectoris; N18.31 Chronic kidney disease, stage 3a; I50.9 Heart failure, unspecified; Z79.02 Long term (current) use of antithrombotics/antiplatelets
CPT/HCPCS: 36415; 80053; 82607; 82728; 82746; 85025